=== PATIENT | female | born 1950 | race Caucasian/White ===

== ENCOUNTER 2023-08-08 15:57 | Inpatient (IN) | payer OTHER, SELFPAY ==
[2023-08-08 12:47] VITALS: BP 152/62
[2023-08-08 12:54] VITALS: BMI 37.8
--- NOTE | 2023-08-08 13:34 | ED.GENMED ---
History of Present Illness
General
Chief Complaint: Breathing Problem
Source: patient and significant other
Exam Limitations: none
Time Seen by Provider: 08/08/23 12:59
Travel History
Have you had any contact with someone who has COVID-19?: No
Do you have any symptoms of coronavirus? Fever > 100 degrees, chills, cough, shortness of breath, sore throat, loss of taste or smell, muscle aches, or headache?: No
History of Present Illness
History of Present Illness:
Patient presents emergency department with hypoxia at home. She is bedbound at her baseline from prior necrotizing infections in her legs. She has a history of DVT and PE but was taken off of Coumadin after she had a brain bleed 2 years ago. She
has been having recent issues with her renal function and was taken off her Lasix approximately 3 weeks ago. She notes that since Sunday she has been feeling more short of breath and has been having hypoxia as measured at home. She is on 2 L nasal
cannula at baseline but was found to be in the 80s. She denies chest pain. She denies back pain. No fevers or chills. Denies cough.
Phy Exam
Physical Exam
Physical Exam:
GENERAL APPEARANCE: pale, obese, chronically ill appearing
EYES lids/conjunctiva normal
HEAD/NECK normocephalic atraumatic, neck is supple, unable to appreciate JVD 2/2 habitus
RESPIRATORY: mild tachypnea, rales bilaterally
CARDIAC Regular rate and rhythm, edema to LE asymmetrical
ABDOMINAL Soft, ND/NT. No pulsatile masses on exam, rebound tenderness, Guerrero sign or pain over Mcburney's point.
SKIN Warm, pink and dry. No rashes
NEUROLOGICAL Speech is clear and appropriate. Normal level of consciousness.
PSYCH Normal mood and affect. Judgement/competence is appropriate
Scores
Heart Failure Risk
Heart Failure Risk Score: Yes
History of Stroke or TIA: Yes
History of intubation for respiratory distress: No
Heart rate on ED arrival >/= 110: No
SaO2 <90% on arrival on room air: Yes
HR >/=110 during 3min walk test (or too ill to perform test): No
ECG has acute ischemic changes: No
Urea >/=12mmol/L (BUN 33.6mg/dL): Yes
Serum CO2>/=35mmol/L: No
Troponin I or T elevated to OK Level (0.4mg/dL): No
NT-proBNP >/=5,000ng/L (5,000pg/ml): Yes
HF Risk Score: 4
Admission Status: HIGH RISK 26.1% Consider SNF treatment or admission to hospital
Course
Orders/Labs/Results
Orders:
Orders
08/08/23 12:45
Electrocardiogram (*1) Urgent
Reason for Study: Shortness of Breath
EKG- Treatment ONCE
08/08/23 13:25
O2 Therapy [RESP] Stat
Nasal Cannula Liter Flow: 6 LPM
Titrate/Wean O2 to maintain O2 sat greater than (%): 92
Pulse Ox/cont/shift [RESP] Stat
Quantity: 1
08/08/23 13:30
CR Chest Single View Urgent
Reason For Exam: hypoxia
08/08/23 13:34
Comprehensive Metabolic Panel Urgent
D-Dimer Urgent
Magnesium Urgent
PTT Urgent
Prothrombin Time Urgent
08/08/23 13:35
Complete Blood Count/With Diff Urgent
NT-proBNP Urgent
Troponin I Urgent
08/08/23 14:05
Type+Screen Urgent
08/08/23 14:33
Furosemide [Lasix] 80 mg IV NOW STA
Abnormal Lab Results
08/08/23 08/08/23
13:34 13:35
WBC 11.4 H 10^3/uL
(4.8-10.8)
RBC 2.50 L 10^6/uL
(4.20-5.40)
Hgb 7.3 L g/dL
(12.0-16.0)
Hct 24.2 L %
(37.0-47.0)
MCHC 30.2 L g/dL
(33.0-37.0)
Abs Immat Gran (auto) 0.3 H 10^3/uL
(0-0.05)
Absolute Neuts (auto) 9.6 H 10^3/uL
(1.4-6.5)
Absolute Lymphs (auto) 0.5 L 10^3/uL
(1.2-3.4)
Absolute Monos (auto) 0.8 H 10^3/uL
(0.1-0.6)
Immature Gran % 2.2 H %
(0-0.5)
Neutrophils % 84.3 H %
(42.2-75.2)
Lymphocytes % 4.6 L %
(20.5-51.1)
PT 15.3 H Sec
(11.4-14.6)
D-Dimer 1.81 H ug/mlFEU
(0.00-0.50)
Chloride 108 H mmol/L
(98-107)
BUN 72 H mg/dl
(7-17)
Creatinine 2.0 H mg/dL
(0.6-1.0)
Glucose 178 H mg/dl
(70-99)
Total Protein 5.9 L g/dl
(6.3-8.2)
Albumin 3.2 L g/dl
(3.5-5.0)
08/08/23 13:35
08/08/23 13:34
Vital Signs
Initial and Last Documented VS:
Initial Vital Signs
Temp Pulse Resp BP Pulse Ox
97.6 F 71 24 152/62 87
08/08/23 12:47 08/08/23 12:47 08/08/23 12:47 08/08/23 12:47 08/08/23 12:47
Last Documented Vital Signs
Temp Pulse Resp BP Pulse Ox
97.6 F 71 24 152/62 99
08/08/23 12:47 08/08/23 12:47 08/08/23 12:47 08/08/23 12:47 08/08/23 12:58
*Critical Care Note
Total Time (30-74mins, 75-104mins- exclusive of procedures): Not Applicable
ED Attending Note
ED Attending Note
ED Attending Note:
pt bedbound from prior necrotizing lower extremity infections. hx of DVT/PE and then subsequent brain bleed while on coumadin. Chronic hypoxic respiratory failure on 2L at baseline. takes care of her.
She was taken off of her lasix around 3 weeks ago for worsening kidney function
Now she has developed dyspnea, worsening hypoxia -- requiring 6L NC to oxygenate well
Labs with BNP [id number], normal troponin , CXR with cardiomegaly and significant pulmonary edema
She is also anemic to 7.3 -- unclear what her baseline is but she reports no bleeding or dark stools -- consented for a blood transfusion but recommend diuresis prior to giving more volume
also has Cr of 2.0, unknown baseline ( is on his way home to get records)
Ddimer is elevated, but more clinically suggestive CHF given that she has not been taking her lasix/xray findings/bnp. deferring CTA given creatinine and more likely alternative diagnosis
given 80mg IV lasix
discussed case with hospitalist who accepts patient for admission
-
Portions of this chart may have been created with voice recognition software.� Occasional wrong word or��sound alike� substitutions may have occurred due to the inherent limitations of voice recognition software.
Discharge Plan
Departure
Patient Disposition: Admit
Date of Disposition: 08/08/23
Time of Disposition: 15:02
Admit to: Telemetry
Admit to doctor: Keon La
Presentation/result/management discussed w/ accepting MD/DO: Hospitalist
Consults for patient: HF Discharge Planning
Condition: Fair
Discharge Problem:
CHF (congestive heart failure), CONSTANCE (acute kidney injury), Anemia
Prescriptions:
No Action
atorvastatin 40 mg Tablet
40 mg PO HS
metoprolol succinate 100 mg Tablet Extended Release 24 Hr
100 mg PO DAILY
amlodipine 5 mg Tablet
5 mg PO DAILY
pantoprazole 40 mg Tablet,Delayed Release (Dr/Ec)
40 mg PO DAILY
ferrous sulfate [iron] 325 mg (65 mg iron) Tablet
325 mg PO DAILY
zinc 50 mg Tablet
50 mg PO DAILY
nystatin 100,000 unit/gram Powder
1 applic TOPICAL [id number] PRN (Reason: apply to B/L legs)
sertraline 50 mg Tablet
50 mg PO DAILY
valsartan 160 mg Tablet
160 mg PO DAILY
cholecalciferol (vitamin D3) 50 mcg (2,000 unit) Tablet
50 mcg PO DAILY
Sudafed
2 tab PO DAILYPRN PRN (Reason: congestion)
ascorbic acid (vitamin C) [Vitamin C] 250 mg Tablet
250 mg PO DAILY
Referrals:
Reji Guardado MD [Family Provider] -
Interventions
Interventions:
*Risk Screen - Suicide Last Done: 08/08/23 12:47
*General Assessment Last Done: 08/08/23 12:47
*Neglect/Abuse Screening Last Done: 08/08/23 12:47
ED- Cardiac Assessment Last Done: 08/08/23 12:55
ED- Pulmonary Assessment Last Done: 08/08/23 12:55
Discharge Date and Time
Print Language: PANAMANIAN
[2023-08-08 13:44] LABS: % Basophils 0.3 % (0-2); % Eosinophils 1.2 % (0-6); % Immature Granulocytes 2.2 % (0-0.5); % Lymphocytes 4.6 % (20.5-51.1); % Monocytes 7.4 % (1.7-9.3); % Neutrophils 84.3 % (42.2-75.2); Absolute Eosinophils 0.1 10^3/uL (0-0.7); Absolute Immature Granulocytes 0.3 10^3/uL (0-0.05); Absolute Lymphocytes 0.5 10^3/uL (1.2-3.4); Absolute Monocytes 0.8 10^3/uL (0.1-0.6); Absolute Neutrophils 9.6 10^3/uL (1.4-6.5); Hematocrit 24.2 % (37.0-47.0); Hemoglobin 7.3 g/dL (12.0-16.0); Mean Corp Hgb Conc. 30.2 g/dL (33.0-37.0); Mean Corpuscular Hgb 29.2 pg (27.0-31.0); Mean Corpuscular Volume 96.8 fL (81.0-99.0); Nucleated Red Blood Cells % 0 %; Platelet Count 252 10^3/uL (130-400); Red Cell Dist. Width 13.6 % (11.5-14.5); White Blood Cell Count 11.4 10^3/uL (4.8-10.8)
[2023-08-08 14:03] LABS: APTT 30.4 Sec (23.4-35.0); PT 15.3 Sec (11.4-14.6)
[2023-08-08 14:05] LABS: D-Dimer 1.81 ug/mlFEU (0.00-0.50)
[2023-08-08 14:13] LABS: ALT (SGPT) 11 U/L (0-35); AST (SGOT) 19 U/L (14-36); Albumin 3.2 g/dl (3.5-5.0); Alkaline Phosphatase 96 U/L (38-126); Blood Urea Nitrogen 72 mg/dl (7-17); Calcium 9.5 mg/dl (8.4-10.2); Carbon Dioxide 29 mmol/L (22-30); Chloride 108 mmol/L (98-107); Estimated Creatinine Clearance 32 ml/min; Glucose 178 mg/dl (70-99); Magnesium 1.9 mg/dl (1.6-2.3); Potassium 4.9 mmol/L (3.5-5.1); Sodium 141 mmol/L (135-145); Total Bilirubin 0.4 mg/dl (0.2-1.3); Total Protein 5.9 g/dl (6.3-8.2); eGFR 26.22
[2023-08-08 14:25] LABS: NT-proBNP 10200 pg/ml; Troponin I < 0.012 ng/ml
--- NOTE | 2023-08-08 15:07 | HPS.HSE ---
Family Physician
-
Family Physician: Reji Guardado
Chief Complaint
-
Shortness of breath
History of Present Illness
Patient is 73-year-old female with past medical history of heart failure type unknown, CKD stage IIIb, chronic hypoxic respiratory failure on 3 L oxygen nasal cannula, history of A-fib not on anticoagulation due to hemorrhagic CVA, morbid obesity,
bedbound, recovered type 2 diabetes, essential hypertension, depression, GERD, chronic right foot decubitus wound, history of left leg DVT, FREDY on CPAP was brought into ER by family after patient was noted to be more hypoxic and short of breath for
last 2 3 days. Patient usually uses 3 L oxygen through nasal cannula due to shortness of breath patient requiring 6 L oxygen in ER. No productive cough or fever reported. Patient unsure about worsening leg swelling. Patient apparently have
worsening renal function for some time and patient Lasix was discontinued by batch freezer operator. Patient see batch freezer operator in [place], [place] but does not know the name. Patient also have a senior ui ux designer who according to patient visits at her home.
Patient of left leg DVT for which patient was started on Coumadin, patient ended up having hemorrhagic CVA from that. Patient does not have any significant residual focal neurological deficit. Patient in general has been weak and been working with
physical therapy but remains bedbound and required Jason lift for transfer.
Patient have right foot chronic wound which has been taken care of by wound care nurse. On exam in ER foul-smelling drainage although per patient this is better than in past. Patient have been seen by podiatry in the past as well.
Patient denies of any abdominal or complaints.
Medical History
Past Medical History
Past Medical History: Reports Other
Additional Past Medical History:
heart failure type unknown, CKD stage IIIb, chronic hypoxic respiratory failure on 3 L oxygen nasal cannula, history of A-fib not on anticoagulation due to hemorrhagic CVA, morbid obesity, bedbound, recovered type 2 diabetes, essential hypertension,
depression, GERD, chronic right foot decubitus wound, history of left leg DVT, FREDY on CPAP
Past Surgical History: Reports Other
Social History
Tobacco: Non-smoker
Alcohol: None
Drug: None
Personal:
Living: With Family
Family History
Family History: Not pertinent
Allergies / Home Medications
Allergies reflects when Allergies were last updated in [employer].
Home Medications with original date entered in [employer]
Allergy/Medication List:
Allergies
Allergy/AdvReac Type Severity Reaction Status Date / Time
No Known Allergies Allergy Unverified 08/08/23 12:44
Home Medications
Sudafed 2 tab PO DAILYPRN PRN congestion 08/08/23
amlodipine 5 mg tablet 5 mg PO DAILY 08/08/23
ascorbic acid (vitamin C) 250 mg tablet (Vitamin C) 250 mg PO DAILY 08/08/23
atorvastatin 40 mg tablet 40 mg PO HS 08/08/23
cholecalciferol (vitamin D3) 50 mcg (2,000 unit) tablet 50 mcg PO DAILY 08/08/23
ferrous sulfate 325 mg (65 mg iron) tablet (iron) 325 mg PO DAILY 08/08/23
metoprolol succinate 100 mg tablet,extended release 24 hr 100 mg PO DAILY 08/08/23
nystatin 100,000 unit/gram topical powder 1 applic topical [id number] PRN apply to B/L legs 08/08/23
pantoprazole 40 mg tablet,delayed release 40 mg PO DAILY 08/08/23
sertraline 50 mg tablet 50 mg PO DAILY 08/08/23
valsartan 160 mg tablet 160 mg PO DAILY 08/08/23
zinc 50 mg tablet 50 mg PO DAILY 08/08/23
Review of Systems
-
A 12 point ROS was completed and negative except as noted: Yes
Physical Exam
Vital Signs
Vital Signs
Temp Pulse Resp BP Pulse Ox
97.6 F 71 24 152/62 99
08/08/23 12:47 08/08/23 12:47 08/08/23 12:47 08/08/23 12:47 08/08/23 12:58
Physical Exam
General: No Apparent Distress and Morbidly Obese
HEENT: Atraumatic and Oxygen (6 L NC)
Respiratory: Rhonchi
Cardiac: S1/S2 and Regular Rhythm; No Murmur or Rub
GI: Soft, Non Tender, Non Distended and Normal Bowel Sounds; No Organomegaly
Musculoskeletal: No Clubbing, No Cyanosis, Edema, Left Lower Extremity and Edema, Right Lower Extremity
Skin: Other (Right foot dorsal surface wound, granulation tissue with yellowish foul-smelling drainage); No Rash
Neuro: Awake, Alert, Oriented and Nonfocal/grossly intact
Psych: Calm
Laboratory Results
-
08/08/23 13:35
08/08/23 13:34
Laboratory Results
PT 15.3 Sec (11.4-14.6) H 08/08/23 13:34
INR 1.20 08/08/23 13:34
APTT 30.4 Sec (23.4-35.0) 08/08/23 13:34
Total Bilirubin 0.4 mg/dl (0.2-1.3) 08/08/23 13:34
AST 19 U/L (14-36) 08/08/23 13:34
ALT 11 U/L (0-35) 08/08/23 13:34
Alkaline Phosphatase 96 U/L (38-126) 08/08/23 13:34
Troponin I < 0.012 ng/ml 08/08/23 13:35
Data Reviewed
-
Lab Data: Labs Reviewed by me and Discussed with Patient
Impression/Plan
-
1. Acute on chronic heart failure -type unknown
Acute on chronic hypoxic respiratory failure
-Patient with history of heart failure and has been taken off of Lasix 3 weeks back
-Patient new to [facility] no previous records to compare.
-Patient usually on 3 to oxygen through nasal cannula at home 13/11. Currently requiring up out of 6 to 7 L in ER
-Volume assessment difficult although some swelling in lower extremity.
-Chest x-ray showing moderate pulmonary edema and small left pleural effusion.
-proBNP 10,000 baseline unknown.
-Echocardiogram from tomorrow ordered
-Patient getting IV Lasix 80 mg in ER, maintain on 40 twice daily moving forward
-Check weight and creatinine
2. CKD stage IIIb
-No previous labs to compare with and baseline unknown
-Patient does follow-up with nephrology in [place] [facility] [place] although does not remember the name
-Bladder scan and straight cath protocol ordered
-Will try to obtain records from primary care physician.
3. Right foot chronic decubitus wound
-Patient gets wound care at home by VN. Have been seen by podiatry in the past as well
-Infected foul-smelling purulent drainage on exam in ER
-Wound culture collected
-Lower extremity ANABELLA ordered
-MRI foot ordered
-Podiatry and wound care consulted for further evaluation
-No sign of systemic sepsis. Maintain on empiric vancomycin and Zosyn.
4. history of A-fib
h/o of LLE DVT
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
-Patient evaluated D-dimer. Will check for VTE if hypoxia not improved with diuresis
-can not get CT Chest PE with renal funcion and V/q due to pulm edema
5. Essential hypertension
-Continue Norvasc/metoprolol with holding parameters. Hold valsartan
6. FREDY
-continue on CPAP at night. patient does not know setting.
morbid obesity
bedbound
recovered type 2 diabetes - check a1c
depression
GERD
DVT PPX - heparin subq
Full code- confirmed with patient
Total time spent : 80 mins
I personally saw and examined the patient.
I have reviewed all diagnostic interpretations and treatment plans as written.
Time includes patient management by me, time spent at the patients bedside, time to review lab and imaging results, discussing patient care, documentation in the medical record, and time spent with the family or caregiver and discussing care plan
with RN/Consultants.
[2023-08-08] MEDS: LASIX 80 MG IV (15:28)
[2023-08-08] MEDS: VANCOCIN 540 MG IV (16:19)
[2023-08-08 18:28] VITALS: BMI 38.4
[2023-08-08 18:39] VITALS: BMI 38.4
--- NOTE | 2023-08-08 18:40 | W.PN.POD ---
Today's Communication
Today's Communication
*
Assessment / Plan
-
[place] dressing QD after saline lavage. Awaiting vascular study, cultures and radiology.
Subjective
Chief Complaint
Consulted for right foot wound. Wound is chronic and has been treated by family members and wound care nurse.
Objective
Temp Pulse Resp BP Pulse Ox
97.6 F 71 24 152/62 99
08/08/23 12:47 08/08/23 12:47 08/08/23 12:47 08/08/23 12:47 08/08/23 12:58
08/08/23 13:35
08/08/23 13:34
Vital Signs and Lab results were reviewed.
Inspection: Ulcer (Right dorsal foot. 3cm x 2.5cm x ~.5cm. Granulating base. Wound does not probe to bone and does not have any areas of tunneling. )
[2023-08-08 18:41] VITALS: BP 159/59
--- NOTE | 2023-08-08 19:14 | PHA.VAN.IN ---
Assessment
- Assessment
Renal Function: Unknown baseline
Concomitant Antimicrobials: ZOSYN
Plan
- Plan
Initial / Loading Dose: 2GM
Maintenance Regimen: DOSING BY RANDOM LEVEL
Monitoring: RANDOM VANCOMYCIN LEVEL 08/09/23 AM
Pharmacokinetics Vancomycin I
- -
Patient Age: 73
Patient Sex: Female
Vancomycin Day #: 1
Indication: Skin And Soft Tissue (CHRONIC [R] FOOT DECUB)
Height / Weight:
Height 5 ft 6 in
Actual Weight 107.819 kg
Pertinent Past Medical History: CKD STAGE 3B; IDDM
- Vital Signs / Lab Results
Temp Pulse Resp BP Pulse Ox
97.3 F 65 18 159/59 97
08/08/23 18:41 08/08/23 18:41 08/08/23 18:41 08/08/23 18:41 08/08/23 18:41
Lab Results - Hematology
08/08/23
13:35
WBC 11.4 H
Lab Results - Chemistry
08/08/23
13:34
BUN 72 H
Creatinine 2.0 H
Estimated Creat Clear 32
Albumin 3.2 L
Microbiology Results
08/08/23 16:23 Gram Stain - Preliminary
Foot - Right
[2023-08-08 19:44] VITALS: BP 103/55
[2023-08-08] MEDS: HEPARIN 5000 UNITS SC (20:17)
[2023-08-08] MEDS: ZOSYN 50 IV (20:17)
[2023-08-08 21:59] VITALS: PULSE 65
[2023-08-08] MEDS: LIPITOR 40 MG PO (22:22)
[2023-08-08 23:49] VITALS: BP 149/53
[2023-08-09] VITALS (7 sets, daily range): BP systolic 131–147; BP diastolic 51–59; PULSE 66; BMI 38.3
[2023-08-09] MEDS: ZOSYN 50 IV ×4 (02:22→20:21)
[2023-08-09 06:29] LABS: Hematocrit 25.2 % (37.0-47.0); Hemoglobin 7.3 g/dL (12.0-16.0); Mean Corpuscular Hgb 28.1 pg (27.0-31.0); Mean Corpuscular Volume 96.9 fL (81.0-99.0); Mean Platelet Volume 10.1 fL (7.4-10.4); Platelet Count 247 10^3/uL (130-400); Red Cell Dist. Width 13.7 % (11.5-14.5); White Blood Cell Count 10.5 10^3/uL (4.8-10.8)
[2023-08-09 06:41] LABS: Vancomycin Random 19.1 ug/ml
[2023-08-09 06:52] LABS: Blood Urea Nitrogen 74 mg/dl (7-17); Calcium 9.9 mg/dl (8.4-10.2); Carbon Dioxide 28 mmol/L (22-30); Chloride 105 mmol/L (98-107); Estimated Creatinine Clearance 28 ml/min; Glucose 126 mg/dl (70-99); Potassium 4.8 mmol/L (3.5-5.1); Sodium 144 mmol/L (135-145); eGFR 22.17
--- NOTE | 2023-08-09 09:00 | PHA.VAN.FU ---
Vancomycin Assessment / Plan
- Assessment
Renal Function: SCR Decreasing
WBC's are: WNL
In the past 24 hrs, patient has been: Afebrile
Concomitant Antimicrobials: piperacillin/tazobactam
- Assessment - Therapeutic Drug Monitoring
Random Level: 19.1 - drawn ~13.5H after 2000mg loading dose
- Dosing Plan
Dosing by Level: Hold off on dosing today (given elevated level and increased SCR with unclear baseline)
- Monitoring Plan
Random Level: 08/09 599
- Follow Up
Pharmacy will continue to follow.
Vancomycin Follow UP
- -
Patient Age: 73
Patient Sex: Female
Vancomycin Day #: 2
Indication: Skin And Soft Tissue
Requesting Provider: Dr. La
Pertinent Antimicrobial Allergies:
NKDA
Height / Weight:
Height 5 ft 6 in
Actual Weight 107.819 kg
Pertinent Past Medical History: BMI ~38, CKD, DM2
- Vital Signs / Lab Results
Temp Pulse Resp BP Pulse Ox
97.8 F 66 20 141/58 94
08/09/23 07:00 08/09/23 07:00 08/09/23 07:00 08/09/23 07:00 08/09/23 07:00
Lab Results - Hematology
08/08/23 08/09/23
13:35 06:05
WBC 11.4 H 10.5
Lab Results - Chemistry
08/08/23 08/09/23
13:34 06:05
BUN 72 H 74 H
Creatinine 2.0 H 2.3 H
Estimated Creat Clear 32 28
Albumin 3.2 L
Microbiology Results
08/08/23 16:23 Gram Stain - Preliminary
Foot - Right
Therapeutic Drug Monitoring
Random Vancomycin 19.1 ug/ml 08/09/23 06:05
[2023-08-09] MEDS: LASIX 40 MG PO ×2 (09:38→15:38)
[2023-08-09] MEDS: FEOSOL 325 MG PO (09:38)
[2023-08-09] MEDS: VITAMIN C 250 MG PO (09:41)
[2023-08-09] MEDS: ZOLOFT 50 MG PO (09:41)
[2023-08-09] MEDS: NORVASC 5 MG PO (09:41)
[2023-08-09] MEDS: PROTONIX 40 MG PO (09:41)
[2023-08-09] MEDS: TOPROL XL 100 MG PO (09:42)
[2023-08-09] MEDS: VITAMIN D3 (cholecalciferol) 50 MCG PO (09:42)
[2023-08-09] MEDS: HEPARIN 5000 UNITS SC ×2 (09:58→20:20)
--- NOTE | 2023-08-09 10:47 | CM ---
Met with pt and her at bedside
Pt lives with her in a 2 story home. Pt has a FF set-up
Pt is oriented x3. She can perform adl's with assist. Pt is bedbound. Uses Jason Lift to transfer to wheel chair
Family has FAMILY EDUCATOR 3days/wk, private pay
DME - Includes hospital bed, jason lift, wheel chair, shower chair, rolling walker, CPAP and Oxygen([employer]) - baseline 3.5L
SNF - In past has been to [facility]
HH - has had [facility] in past for RN/PT/OT. Currently followed by Palliative Care
Pt will need bariatric ambulance to return home
Pt/ given food resource website - [email or web address]
Consulted for Advance Directive - given information packet on Advance Directives
Waiting on PT/OT eval
Plan - anticipate snf vs HH when medically ready
--- NOTE | 2023-08-09 11:07 | WOUNDNOTE ---
WOC RN NOTE: Reviewed chart and briefly met with patient before she was transferred for test. Wound care to right LE has been ordered by podiatry. Static air overlay ordered and applied to bed. JLUIS Pena given update. Will follow peripherally.
[2023-08-09 12:19] LABS: Glycohemoglobin (HgbA1c) 5.1 % (4.0-5.6)
--- NOTE | 2023-08-09 15:01 | W.PN.HOSP.TC ---
Today's Communication/Plan
-
see note
Assessment / Plan
Assessment / Plan
TTE
Mild concentric left ventricular hypertrophy. Normal regional wall motion. Left ventricular ejection fraction is 75% by Pham's method.
Normal diastolic function. Normal right ventricular size and function. Trace mitral regurgitation.
Aortic sclerosis without stenosis. Mild tricuspid regurgitation.
Estimated pulmonary artery pressure of 37 mmHg, assuming a right atrial pressure of 3 mmHg. Normal pericardium without effusion.
The IVC is of normal size and demonstrates normal respiratory variation.
NO prior available for comparison
CT right foot
Findings suggesting moderate cellulitis of the dorsal right foot. No focal fluid collection to suggest abscess . Limited exam without IV contrast.
LE arterial doppler
1. Noncompressible arteries bilaterally, suggestive of medial calcinosis and/or arterial noncompliance, which makes measured ankle-brachial indices unreliable. Toe brachial indices are considered more reliable in this situation.
2. Right toe brachial index 1.03 (normal greater than 0.7). No focal arterial stenosis demonstrated. Spectral Doppler waveforms are normal to the level of ankle.
3. Left toe brachial index 1.23. No focal arterial stenosis demonstrated. Spectral Doppler waveforms are normal to the level of ankle.

1. Acute on chronic diastolic heart failure
Acute on chronic hypoxic respiratory failure
-Patient with history of heart failure and has been taken off of Lasix 3 weeks back
-Patient new to [facility] no previous records to compare.
-Patient usually on 3 to oxygen through nasal cannula at home 13/11. in ER was on 7L NC
-Volume assessment difficult although some swelling in lower extremity.
-Chest x-ray showing moderate pulmonary edema and small left pleural effusion.
-proBNP 10,000 baseline unknown.
-Echocardiogram report as above
-Patient getting IV Lasix 80 mg in ER, got IV lasix 40mg in morning
-hold further lasix until renal function baseline clarified. obtrainig records from PCP office.
2.Presumed CKD stage IIIb
-No previous labs to compare with and baseline unknown
-Patient does follow-up with nephrology in [place] although does not remember the name
-Bladder scan and straight cath protocol ordered
-Will try to obtain records from primary care physician.
3. Right foot chronic decubitus wound
-Patient gets wound care at home by VN. Have been seen by podiatry in the past as well
-Infected foul-smelling purulent drainage on exam in ER
-Superficial Wound culture growing gram neg bacilli, group c streptococcus
-Lower extremity ANABELLA report as above
-CT left foot/xr did not show osteo. no abscess.
-Podiatry input noted.
-d/c vanc, continue zosyn
4. history of A-fib
h/o of LLE DVT
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
-Patient evaluated D-dimer. Will check for VTE if hypoxia not improved with diuresis
-can not get CT Chest PE with renal function and V/q due to pulm edema
5. Essential hypertension
-Continue Norvasc/metoprolol with holding parameters. Hold valsartan
6. FREDY
-continue on CPAP at night. patient does not know setting.
morbid obesity
bedbound
recovered type 2 diabetes - check a1c
depression
GERD
DVT PPX - heparin subq
Full code- confirmed with patient
Total time spent : 53 mins
Anticipated Discharge: > 48 hours
Subjective/Interval History
-
Date of Service: August 09, 2023
Patient sleeping comfortably in bed
Remains on oxygen 6 L of nasal cannula
No acute issues reported
Objective Data
-
Labs:
Laboratory Results
08/09/23
06:05
WBC 10.5
Hgb 7.3 L
Hct 25.2 L
Plt Count 247
Sodium 144
Potassium 4.8
Chloride 105
Carbon Dioxide 28
BUN 74 H
Creatinine 2.3 H
Glucose 126 H
Calcium 9.9
Vital Signs:
Vital Signs
Temp Pulse Resp BP Pulse Ox
97.7 F 63 18 131/57 93
08/09/23 11:00 08/09/23 11:00 08/09/23 11:00 08/09/23 11:00 08/09/23 11:00
I&O
08/08/23 08/09/23 08/10/23
06:59 06:59 06:59
Output Total 450 / 450
Balance -450 / -450
Review of Systems
-
Respiratory: Reports No Symptoms
Cardiac: Reports No Symptoms
Abdomen/GI: Reports No Symptoms
Physical Exam
-
General: No Apparent Distress and Comfortable
HEENT: Oxygen (6L NC)
Respiratory: Rhonchi
Cardiac: Regular Rhythm and S1/S2; Negative Murmur or Rub
GI: Soft, Nontender and Nondistended
Musculoskeletal: No Edema
Neuro: Awake, Alert, Oriented, No Motor Deficits and Nonfocal/Grossly Intact
Psych: Calm
[2023-08-09 18:56] LABS: Hepatitis C Antibody Negative (Negative)
[2023-08-09] MEDS: LIPITOR 40 MG PO (22:47)
[2023-08-10] VITALS (8 sets, daily range): BP systolic 135–167; BP diastolic 52–72; BMI 37.0
[2023-08-10] MEDS: ZOSYN 50 IV ×3 (02:30→13:50)
[2023-08-10 06:05] LABS: Hematocrit 24.2 % (37.0-47.0); Hemoglobin 7.2 g/dL (12.0-16.0); Mean Corp Hgb Conc. 29.8 g/dL (33.0-37.0); Mean Corpuscular Hgb 28.6 pg (27.0-31.0); Mean Platelet Volume 9.8 fL (7.4-10.4); Platelet Count 264 10^3/uL (130-400); Red Blood Cell Count 2.52 10^6/uL (4.20-5.40); Red Cell Dist. Width 13.8 % (11.5-14.5); White Blood Cell Count 11.7 10^3/uL (4.8-10.8)
[2023-08-10 06:28] LABS: Vancomycin Random 16.8 ug/ml
[2023-08-10 06:34] LABS: Blood Urea Nitrogen 76 mg/dl (7-17); Carbon Dioxide 27 mmol/L (22-30); Chloride 105 mmol/L (98-107); Estimated Creatinine Clearance 26 ml/min; Glucose 139 mg/dl (70-99); Potassium 4.2 mmol/L (3.5-5.1); Sodium 144 mmol/L (135-145); eGFR 21.06
[2023-08-10] MEDS: HEPARIN 5000 UNITS SC ×2 (08:27→21:09)
[2023-08-10] MEDS: VITAMIN D3 (cholecalciferol) 50 MCG PO (08:29)
[2023-08-10] MEDS: NORVASC 5 MG PO (08:29)
[2023-08-10] MEDS: FEOSOL 325 MG PO (08:30)
[2023-08-10] MEDS: TOPROL XL 100 MG PO (08:30)
[2023-08-10] MEDS: ZOLOFT 50 MG PO (08:30)
[2023-08-10] MEDS: PROTONIX 40 MG PO (08:31)
[2023-08-10] MEDS: VITAMIN C 250 MG PO (08:31)
--- NOTE | 2023-08-10 13:10 | PN.CDI ---
CDI
- -
CDI:
Physician Documentation Request
Admit Date: 08/08/23 15:57
Dear Doctor Abhinav,
Clinical Indicators:
Patient admitted with acute on chronic diastolic heart failure.
08/08 PN, '...hold further lasix until renal function baseline clarified...Presumed CKD stage IIIb'
Cr/GFR trend:
08/08/23 08/09/23
13:34 06:05
Creatinine 2.0 H 2.3 H
eGFR 26.22 22.17
Please clarify which of the following accurately represents the patient's likely renal status:
CONSTANCE on presumed CKD 3b
Presumed CKD 3b with rise in creatinine only
Other, please specify
Criteria for CONSTANCE*
1 Increase in serum creatinine by > or = to 0.3 mg/dL (> or = to 26.5 micromol/L) within 48 hours, OR
2 Increase in serum creatinine to > or = to 1.5 times baseline, which is known or presumed to have occurred within 7 days, OR
3 Urine volume < 0.5 nL/kg/hour for six hours
Stages of Chronic Kidney Disease*
Level Description GFR
G1 Normal or High >90
G2 Mildly decreased 60-89
G3a Mildly to moderately decreased 45-59
G3b Moderately to severely decreased 30-44
G4 Severely decreased 15-29
G5 Kidney failure <15
Use of terms such as suspected, likely, concern for, or probable (associated with a specific diagnosis that is being evaluated, monitored, or treated as if it exists) are acceptable and can be coded in the inpatient setting, when documented at the
time of discharge.
Thank you,
WILLARD Oliva RN
CDI Specialist
available via tiger text
Please use your independent medical judgment in providing your response.
*Source: Kidney Disease: Improving Global Outcomes (KDIGO) 2012
--- NOTE | 2023-08-10 13:21 | PN.CDI ---
CDI
- -
CDI:
Physician Documentation Request
Admit Date: 08/08/23 15:57
Dear Doctor Abhinav,
Clinical Indicators:
The diagnosis of cellulitis was included in the signed CT and foot x ray.
08/07 Foot X Ray report: 'There is a large amount of soft tissue swelling and subcutaneous edema throughout the right foot and ankle consistent with severe cellulitis.'
08/[address] report: 'Findings suggesting moderate cellulitis of the dorsal right foot'
Please indicate in your progress notes if you are in agreement that the above diagnosis is valid for this patient:
Right foot cellulitis is a valid diagnosis (Please include it in your progress notes)
Right foot cellulitis is not a valid diagnosis for this patient
Right foot cellulitis is not yet confirmed but remains a suspected condition
Other, please specify
Use of terms such as suspected, likely, concern for, or probable are acceptable for a diagnosis that is being evaluated, monitored or treated as if it exists and can be coded in the inpatient setting, when documented at the time of discharge.
Thank you,
WILLARD Oliva RN
CDI Specialist
available via tiger text
Please use your independent medical judgment in providing your response.
--- NOTE | 2023-08-10 14:03 | W.PN.HOSP.TC ---
Today's Communication/Plan
-
see note
Assessment / Plan
Assessment / Plan
TTE
Mild concentric left ventricular hypertrophy. Normal regional wall motion. Left ventricular ejection fraction is 75% by Pham's method.
Normal diastolic function. Normal right ventricular size and function. Trace mitral regurgitation.
Aortic sclerosis without stenosis. Mild tricuspid regurgitation.
Estimated pulmonary artery pressure of 37 mmHg, assuming a right atrial pressure of 3 mmHg. Normal pericardium without effusion.
The IVC is of normal size and demonstrates normal respiratory variation.
NO prior available for comparison
CT right foot
Findings suggesting moderate cellulitis of the dorsal right foot. No focal fluid collection to suggest abscess . Limited exam without IV contrast.
LE arterial doppler
1. Noncompressible arteries bilaterally, suggestive of medial calcinosis and/or arterial noncompliance, which makes measured ankle-brachial indices unreliable. Toe brachial indices are considered more reliable in this situation.
2. Right toe brachial index 1.03 (normal greater than 0.7). No focal arterial stenosis demonstrated. Spectral Doppler waveforms are normal to the level of ankle.
3. Left toe brachial index 1.23. No focal arterial stenosis demonstrated. Spectral Doppler waveforms are normal to the level of ankle.

1. Acute on chronic diastolic heart failure
Acute on chronic hypoxic respiratory failure
-Patient with history of heart failure and has been taken off of Lasix 3 weeks back
-Patient new to [facility] no previous records to compare.
-Patient usually on 3 to oxygen through nasal cannula at home 13/11. in ER was on 7L [place]
-Volume assessment difficult although some swelling in lower extremity.
-Chest x-ray showing moderate pulmonary edema and small left pleural effusion.
-proBNP 10,000 baseline unknown.
-Echocardiogram report as above
-cr lower then last known outpt labs, but increased from best known cr 1 yr back
-currently remains hypoxic and volume overloaded, will continue diuresis IV lasix 40mg/d
2.Presumed CKD stage IIIb
-Cr of 1.65 and GFR of 33 on July 13
-Repeat one earlier this year showing cr 3.07 and GFR 16 on 06/18/23
-Patient was admitted taken off of Lasix due to worsening renal function. Patient was apparently on p.o. Lasix 40 g twice daily.
-Bladder scan and straight cath protocol ordered
3. Right foot chronic decubitus wound
-Patient gets wound care at home by VN. Have been seen by podiatry in the past as well
-Infected foul-smelling purulent drainage on exam in ER
-Superficial Wound culture growing gram neg bacilli, group c streptococcus
-Lower extremity ANABELLA report as above
-CT left foot/xr did not show osteo. no abscess.
-Podiatry input noted.
-Change abx to unasyn
4. history of A-fib
h/o of LLE DVT
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
-Patient evaluated D-dimer. Will check for VTE if hypoxia not improved with diuresis
-can not get CT Chest PE with renal function and V/q due to pulm edema
5. Essential hypertension
-Continue Norvasc/metoprolol with holding parameters. Hold valsartan
6. FREDY
-continue on CPAP at night. patient does not know setting.
morbid obesity
bedbound
recovered type 2 diabetes - A1c 5.1
depression
GERD
DVT PPX - heparin subq
Full code- confirmed with patient
Patient palliative care physician Dr. Andie Alonso shared patient's previous labs and reviewed.
Remains complex and high risk for complication.
Anticipated Discharge: > 48 hours
Subjective/Interval History
-
Date of Service: August 10, 2023
Remains on 6 to oxygen through nasal cannula
Subjectively feeling better
Denies dyspnea/cough
Afebrile overnight
Objective Data
-
Labs:
Laboratory Results
08/10/23
05:52
WBC 11.7 H
Hgb 7.2 L
Hct 24.2 L
Plt Count 264
Sodium 144
Potassium 4.2
Chloride 105
Carbon Dioxide 27
BUN 76 H
Creatinine 2.4 H
Glucose 139 H
Calcium 10.0
Vital Signs:
Vital Signs
Temp Pulse Resp BP Pulse Ox
97.6 F 64 20 148/59 94
08/10/23 12:04 08/10/23 12:04 08/10/23 12:04 08/10/23 12:04 08/10/23 11:05
I&O
08/09/23 08/10/23 08/11/23
06:59 06:59 06:59
Intake Total 1060 / 1060
Output Total 450 / 450 425 / 425
Balance -450 / -450 635 / 635
Review of Systems
-
Respiratory: Reports No Symptoms
Cardiac: Reports No Symptoms
Abdomen/GI: Reports No Symptoms
Physical Exam
-
General: No Apparent Distress and Comfortable
HEENT: Oxygen (6L NC)
Respiratory: Rhonchi
Cardiac: Regular Rhythm and S1/S2; Negative Murmur or Rub
GI: Soft, Nontender and Nondistended
Musculoskeletal: No Edema
Neuro: Awake, Alert, Oriented, No Motor Deficits and Nonfocal/Grossly Intact
Psych: Calm
[2023-08-10] MEDS: LASIX 40 MG IV (16:37)
[2023-08-10] MEDS: ULTRAM 50 MG PO (17:09)
[2023-08-10] MEDS: UNASYN IV (21:09)
[2023-08-10] MEDS: LIPITOR 40 MG PO (23:56)
[2023-08-11] VITALS (7 sets, daily range): BP systolic 113–167; BP diastolic 53–72; BMI 36.9
[2023-08-11 06:23] LABS: Hematocrit 23.9 % (37.0-47.0); Hemoglobin 7.2 g/dL (12.0-16.0); Mean Corp Hgb Conc. 30.1 g/dL (33.0-37.0); Mean Corpuscular Hgb 28.7 pg (27.0-31.0); Mean Corpuscular Volume 95.2 fL (81.0-99.0); Mean Platelet Volume 10.2 fL (7.4-10.4); Platelet Count 241 10^3/uL (130-400); Red Blood Cell Count 2.51 10^6/uL (4.20-5.40); White Blood Cell Count 9.7 10^3/uL (4.8-10.8)
[2023-08-11 06:32] LABS: Blood Urea Nitrogen 76 mg/dl (7-17); Calcium 9.7 mg/dl (8.4-10.2); Carbon Dioxide 28 mmol/L (22-30); Chloride 109 mmol/L (98-107); Estimated Creatinine Clearance 26 ml/min; Glucose 126 mg/dl (70-99); Potassium 4.5 mmol/L (3.5-5.1); Sodium 144 mmol/L (135-145); eGFR 21.06
[2023-08-11] MEDS: VITAMIN C 250 MG PO (09:07)
[2023-08-11] MEDS: LASIX 40 MG IV (09:07)
[2023-08-11] MEDS: VITAMIN D3 (cholecalciferol) 50 MCG PO (09:07)
[2023-08-11] MEDS: NORVASC 5 MG PO (09:08)
[2023-08-11] MEDS: PROTONIX 40 MG PO (09:08)
[2023-08-11] MEDS: ZOLOFT 50 MG PO (09:08)
[2023-08-11] MEDS: HEPARIN 5000 UNITS SC ×2 (09:09→22:42)
[2023-08-11] MEDS: UNASYN IV (09:09)
[2023-08-11] MEDS: FEOSOL 325 MG PO (09:10)
[2023-08-11] MEDS: ULTRAM 50 MG PO (09:13)
[2023-08-11] MEDS: TOPROL XL 100 MG PO (11:04)
--- NOTE | 2023-08-11 13:06 | W.PN.HOSP.TC ---
Addendum entered and electronically signed by Keon La MD 08/11/23 18:50:
Adjust diagnosis
CONSTANCE on CKDIIIA
Right foot cellulitis from chronic wound infection
Original Note:
Today's Communication/Plan
-
extra lasix 20mg dose in evening
f.u weight/cr
wean off o2
change to oral Augmentin for 3 more days
Assessment / Plan
Assessment / Plan
TTE
Mild concentric left ventricular hypertrophy. Normal regional wall motion. Left ventricular ejection fraction is 75% by Pham's method.
Normal diastolic function. Normal right ventricular size and function. Trace mitral regurgitation.
Aortic sclerosis without stenosis. Mild tricuspid regurgitation.
Estimated pulmonary artery pressure of 37 mmHg, assuming a right atrial pressure of 3 mmHg. Normal pericardium without effusion.
The IVC is of normal size and demonstrates normal respiratory variation.
NO prior available for comparison
CT right foot
Findings suggesting moderate cellulitis of the dorsal right foot. No focal fluid collection to suggest abscess . Limited exam without IV contrast.
LE arterial doppler
1. Noncompressible arteries bilaterally, suggestive of medial calcinosis and/or arterial noncompliance, which makes measured ankle-brachial indices unreliable. Toe brachial indices are considered more reliable in this situation.
2. Right toe brachial index 1.03 (normal greater than 0.7). No focal arterial stenosis demonstrated. Spectral Doppler waveforms are normal to the level of ankle.
3. Left toe brachial index 1.23. No focal arterial stenosis demonstrated. Spectral Doppler waveforms are normal to the level of ankle.

1. Acute on chronic diastolic heart failure
Acute on chronic hypoxic respiratory failure
-Patient with history of heart failure and has been taken off of Lasix 3 weeks back
-Patient new to [facility] no previous records to compare.
-Patient usually on 3 to oxygen through nasal cannula at home 13/11. in ER was on 7L [place]
-Volume assessment difficult although some swelling in lower extremity.
-Chest x-ray showing moderate pulmonary edema and small left pleural effusion.
-proBNP 10,000 baseline unknown.
-Echocardiogram report as above
-cr lower then last known outpt labs in july 14, but increased from best known cr 1 yr back
-will continue diuresis IV lasix 40mg/d - provide extra dose lasix IV 20mg in evening.
-Currently weight down trending and o2 weaned down to 5L
2.Presumed CKD stage IIIb
-Cr of 1.65 and GFR of 33 on July 13
-Repeat one earlier this year showing cr 3.07 and GFR 16 on 06/18/23
-Patient was admitted taken off of Lasix due to worsening renal function by primary companion caregiver 3 wks back. Patient was apparently on p.o. Lasix 40 g twice daily before.
-Bladder scan and straight cath protocol ordered
-Cr stabilized around 2.4 , weight down trending with daily lasix . continue follow.
3. Right foot chronic decubitus wound
-Ongoing for 2.5 yrs. Patient gets wound care at home by VN. Have been seen by podiatry in the past as well
-Infected foul-smelling purulent drainage on exam in ER
-Superficial Wound culture growing gram neg bacilli, group c streptococcus
-Lower extremity ANABELLA report as above
-CT left foot/xr did not show osteo. no abscess.
-Podiatry evaluated. continue local wound care.
-wound looks dry with healthy granulation tissue. change to oral Augmentin for 3 more days
4. history of A-fib
h/o of LLE DVT
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
-Patient have elevated D-dimer. Will check for VTE if hypoxia not improved with diuresis
-can not get CT Chest PE with renal function and V/q due to pulm edema
5. Essential hypertension
-Continue Norvasc/metoprolol with holding parameters. Hold valsartan
6. FREDY
-continue on CPAP at night. patient does not know setting.
morbid obesity
bedbound
recovered type 2 diabetes - A1c 5.1
depression
GERD
DVT PPX - heparin subq
Full code- confirmed with patient
08/10 Patient spouse at bedside and all questions answered.
Anticipated Discharge: > 48 hours
Subjective/Interval History
-
Date of Service: August 11, 2023
remains hypoxic through 6L oxygen through nasal cannula
patient was not provided BiPAP last night
denies of having any acute issues
Objective Data
-
Labs:
Laboratory Results
08/11/23
05:58
WBC 9.7
Hgb 7.2 L
Hct 23.9 L
Plt Count 241
Sodium 144
Potassium 4.5
Chloride 109 H
Carbon Dioxide 28
BUN 76 H
Creatinine 2.4 H
Glucose 126 H
Calcium 9.7
Vital Signs:
Vital Signs
Temp Pulse Resp BP Pulse Ox
97.6 F 89 24 123/74 95
08/11/23 07:40 08/11/23 11:04 08/11/23 07:40 08/11/23 11:04 08/11/23 11:03
I&O
08/10/23 08/11/23 08/12/23
06:59 06:59 06:59
Intake Total 1060 / 1060 100 / 100
Output Total 425 / 425 100 / 100
Balance 635 / 635 0 / 0
Review of Systems
-
Respiratory: Reports No Symptoms
Cardiac: Reports No Symptoms
Abdomen/GI: Reports No Symptoms
Physical Exam
-
General: No Apparent Distress, Comfortable and Morbidly Obese
HEENT: Oxygen (6L NC)
Respiratory: Clear to Auscultation
Cardiac: Regular Rhythm and S1/S2; Negative Murmur or Rub
GI: Soft, Nontender and Nondistended
Musculoskeletal: No Edema
Neuro: Awake, Alert, Oriented, No Motor Deficits and Nonfocal/Grossly Intact
Psych: Calm
[2023-08-11] MEDS: LASIX 20 MG IV (17:05)
--- NOTE | 2023-08-11 17:08 | PTCARENOTE ---
PT completed care and required three nurses to turne and reposition every two hours. With turning pt screems on top of lungs with pain due to hip pain. stated this is her normal baseline. He suggested using log rolling to turn her q 2
hours.PT with Right leg external rotated with both heels elevated with prevelon boots.
[2023-08-11] MEDS: LIPITOR 40 MG PO (22:42)
[2023-08-11] MEDS: AUGMENTIN 500 MG/125 MG 1 TABLET PO (22:42)
[2023-08-11] MEDS: AFRIN NASAL SPRAY 1 SPRAYS NASAL (22:43)
[2023-08-12] VITALS (13 sets, daily range): BP systolic 89–163; BP diastolic 54–104; PULSE 2–70; BMI 36.9
[2023-08-12 06:16] LABS: Hematocrit 23.6 % (37.0-47.0); Mean Corp Hgb Conc. 29.7 g/dL (33.0-37.0); Mean Corpuscular Hgb 28.8 pg (27.0-31.0); Mean Corpuscular Volume 97.1 fL (81.0-99.0); Mean Platelet Volume 10.1 fL (7.4-10.4); Platelet Count 267 10^3/uL (130-400); Red Blood Cell Count 2.43 10^6/uL (4.20-5.40); Red Cell Dist. Width 14.1 % (11.5-14.5); White Blood Cell Count 10.6 10^3/uL (4.8-10.8)
[2023-08-12 06:42] LABS: Blood Urea Nitrogen 77 mg/dl (7-17); Calcium 9.6 mg/dl (8.4-10.2); Carbon Dioxide 28 mmol/L (22-30); Chloride 107 mmol/L (98-107); Estimated Creatinine Clearance 21 ml/min; Glucose 109 mg/dl (70-99); Potassium 4.2 mmol/L (3.5-5.1); Sodium 146 mmol/L (135-145); eGFR 16.12
[2023-08-12] MEDS: AFRIN NASAL SPRAY 1 SPRAYS NASAL (09:24)
[2023-08-12] MEDS: HEPARIN 5000 UNITS SC ×2 (09:24→20:15)
[2023-08-12] MEDS: AUGMENTIN 500 MG/125 MG 1 TABLET PO (09:24)
[2023-08-12] MEDS: NORVASC 5 MG PO (09:25)
[2023-08-12] MEDS: TOPROL XL 100 MG PO (09:26)
[2023-08-12 11:02] LABS: NT-proBNP 10200 pg/ml
[2023-08-12] MEDS: ZOLOFT 50 MG PO (12:13)
[2023-08-12] MEDS: VITAMIN D3 (cholecalciferol) 50 MCG PO (12:13)
[2023-08-12] MEDS: VITAMIN C 250 MG PO (12:13)
[2023-08-12] MEDS: FEOSOL 325 MG PO (12:13)
[2023-08-12] MEDS: PROTONIX 40 MG PO (12:13)
--- NOTE | 2023-08-12 12:38 | W.PN.HOSP.TC ---
Addendum entered and electronically signed by Red Zamora MD 08/12/23 14:28:
DC unasyn, switch to zosyn
Original Note:
Today's Communication/Plan
-
CT Chest
LE dopplers
Unasyn
IMU tx
Pulm consulted
stop lasix
Assessment / Plan
Assessment / Plan
TTE
Mild concentric left ventricular hypertrophy. Normal regional wall motion. Left ventricular ejection fraction is 75% by Pham's method.
Normal diastolic function. Normal right ventricular size and function. Trace mitral regurgitation.
Aortic sclerosis without stenosis. Mild tricuspid regurgitation.
Estimated pulmonary artery pressure of 37 mmHg, assuming a right atrial pressure of 3 mmHg. Normal pericardium without effusion.
The IVC is of normal size and demonstrates normal respiratory variation.
NO prior available for comparison
CT right foot
Findings suggesting moderate cellulitis of the dorsal right foot. No focal fluid collection to suggest abscess . Limited exam without IV contrast.
LE arterial doppler
1. Noncompressible arteries bilaterally, suggestive of medial calcinosis and/or arterial noncompliance, which makes measured ankle-brachial indices unreliable. Toe brachial indices are considered more reliable in this situation.
2. Right toe brachial index 1.03 (normal greater than 0.7). No focal arterial stenosis demonstrated. Spectral Doppler waveforms are normal to the level of ankle.
3. Left toe brachial index 1.23. No focal arterial stenosis demonstrated. Spectral Doppler waveforms are normal to the level of ankle.

# Acute on chronic hypoxic respiratory failure
-Patient usually on 3 to oxygen through nasal cannula at home /. now on 10L
-No evidence of fluid overload on imaging, proBNP unreliable as CONSTANCE on CKD; may be component of PAH
-Stop lasix
-CT Chest
- Incentive Jairon
-LE dopplers - patient has hx of dvt and therefore could not rule out PE; not on anticoag due to hemorrhagic cva
-Will obtain pulmonary consult
-EF 75%;
Echocardiogram report as above
-Tx to IMU
Switch back to Unasyn
#CONSTANCE on Presumed CKD stage IIIb
-stop lasix
-CT Chest
-Gentle fluid if CT chest unremarkable
-Patient was admitted taken off of Lasix due to worsening renal function by primary field gauger 3 wks back. Patient was apparently on p.o. Lasix 40 g twice daily before.
-Bladder scan and straight cath protocol ordered
#Hypernatremia
-2/2 to overdiuresis
-hold lasix
#Right foot chronic decubitus wound
-Ongoing for 2.5 yrs. Patient gets wound care at home by VN. Have been seen by podiatry in the past as well
-Infected foul-smelling purulent drainage on exam in ER
-Superficial Wound culture growing gram neg bacilli, group c streptococcus
-Lower extremity ANABELLA report as above
-CT left foot/xr did not show osteo. no abscess.
-Podiatry evaluated. continue local wound care.
-wound looks dry with healthy granulation tissue. augmentin - to unasyn
#history of A-fib
h/o of LLE DVT
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
-can not get CT Chest PE with renal function and V/q due to pulm edema
#Essential hypertension
-Continue Norvasc/metoprolol with holding parameters. Hold valsartan
6. FREDY
-continue on CPAP at night. patient does not know setting.
morbid obesity
bedbound
recovered type 2 diabetes - A1c 5.1
depression
GERD
DVT PPX - heparin subq
DNR/DNI
Total time spent on today's encounter was 50 minutes which included time spent in counseling the patient/family regarding diagnosis and treatment plan as listed above, goals of care, and symptom management. Case was discussed with nursing staff,
specialists, and care coordinators/case management. All labs and imaging personally reviewed by me. Remainder the time spent in detailed review of previous records, lab data, imaging, and other medical provider documentation.
Anticipated Discharge: > 48 hours
Subjective/Interval History
-
Date of Service: August 12, 2023
Requiring 10 L mid flow, speaking full sentences
Objective Data
-
Labs:
Laboratory Results
08/12/23
04:30
WBC 10.6
Hgb 7.0 L
Hct 23.6 L
Plt Count 267
Sodium 146 H
Potassium 4.2
Chloride 107
Carbon Dioxide 28
BUN 77 H
Creatinine 3.0 H
Glucose 109 H
Calcium 9.6
Vital Signs:
Vital Signs
Temp Pulse Resp BP Pulse Ox
97.5 F 77 20 158/57 82
08/12/23 11:07 08/12/23 11:07 08/12/23 11:07 08/12/23 11:07 08/12/23 11:11
I&O
08/11/23 08/12/23 08/13/23
06:59 06:59 06:59
Intake Total 100 / 100 840 / 840 480 / 480
Output Total 100 / 100
Balance 0 / 0 840 / 840 480 / 480
Review of Systems
-
History Source: Patient
All other systems: Not reviewed unless documented
Physical Exam
-
General: No Apparent Distress, Comfortable and Morbidly Obese
HEENT: Oxygen (10L NC)
Respiratory: Rales (mild although distant)
Cardiac: Regular Rhythm and S1/S2; Negative Murmur or Rub
GI: Soft, Nontender and Nondistended
Musculoskeletal: No Edema
Neuro: Awake, Alert, Oriented, No Motor Deficits and Nonfocal/Grossly Intact
Psych: Calm
Data Reviewed
-
Diagnostic Radiology: Image personally visualized and interpreted and Report Reviewed by me
Labs: Labs Reviewed by me
[2023-08-12] MEDS: LASIX IV (12:45)
--- NOTE | 2023-08-12 14:18 | CON.PUL ---
Consultation
Consultation Request
Date/Time Consultation Requested: 08-12-23
Date/Time Consultation Performed: 08-12-23
Requesting Provider: Hospitalist emil
Performing Provider: Dr Bravo
Reason for Consultation: hypoxemia
Medical History
-
Chief Complaint: dyspnea
History of Present Illness:
Mrs Anahi Long is a 73/W adm 08-07 with 2-3 d h/o worsening dyspnea in setting of chronic hypoxic resp failure on home O2 at 3L and multiple comorbidities.
At ER, POx 87% on O2 2L, deemed in ac/chronic HF, started on diuretic.
Reportedly partial use and sometimes refusal of BPAP as inpatient. Increasing O2 requirement from chronic baseline 3 L, ABG with respiratory acidosis and hypoxemia on O2 15L, resumed BPAP (currently at 14/6 c 10L O2), diuretic discontinued, atbs
changed to zosyn (on atbs since adm with interim changes as mentioned below), transferred to IMU, pulm consulted.
First DH adm
Past Medical History
Past Medical History: Other (see A&P for PMH/PSH)
Social History
Tobacco: Non-smoker
Alcohol: None
Drug: None
Personal:
Living: With Family
Employment: Not Employed
Family History
Family History: Reviewed & Not Pertinent
Allergies / Home Medications
Allergies
Allergy/AdvReac Type Severity Reaction Status Date / Time
No Known Allergies Allergy Unverified 08/08/23 12:44
Home Medications
�Medication �Instructions �Recorded �Confirmed �Last Taken �Type
Sudafed 2 tab PO DAILYPRN PRN congestion 08/08/23 08/08/23 08/07/23 History
amlodipine 5 mg tablet 5 mg PO DAILY Blood Pressure 08/08/23 08/08/23 08/08/23 History
ascorbic acid (vitamin C) 250 mg 250 mg PO DAILY Supplement 08/08/23 08/08/23 08/08/23 History
tablet (Vitamin C)
atorvastatin 40 mg tablet 40 mg PO HS High Cholesterol 08/08/23 08/08/23 08/07/23 History
cholecalciferol (vitamin D3) 50 50 mcg PO DAILY Supplement 08/08/23 08/08/23 08/08/23 History
mcg (2,000 unit) tablet
ferrous sulfate 325 mg (65 mg 325 mg PO DAILY Supplement 08/08/23 08/08/23 08/08/23 History
iron) tablet (iron)
metoprolol succinate 100 mg 100 mg PO DAILY Blood Pressure 08/08/23 08/08/23 08/08/23 History
tablet,extended release 24 hr
nystatin 100,000 unit/gram topical 1 applic topical [id number] PRN b/l 08/08/23 08/09/23 08/06/23 History
powder legs
pantoprazole 40 mg tablet,delayed 40 mg PO DAILY Gastrointestinal 08/08/23 08/08/23 08/08/23 History
release Issue
sertraline 50 mg tablet 50 mg PO DAILY Depression 08/08/23 08/08/23 08/08/23 History
valsartan 160 mg tablet 160 mg PO DAILY Blood Pressure 08/08/23 08/08/23 08/08/23 History
zinc 50 mg tablet 50 mg PO DAILY Supplement 08/08/23 08/08/23 08/08/23 History
Review of Systems
-
History Source: Patient
All other systems: Negative unless noted
Constitutional: Fatigue
Respiratory: Trouble Breathing
Neuro: Weakness
Vitals / Labs / Diagnostic Testing
Vital Signs
Temp Pulse Resp BP Pulse Ox
97.3 F 77 20 158/57 82
08/12/23 14:13 08/12/23 11:07 08/12/23 11:07 08/12/23 11:07 08/12/23 11:11
Lab Data
08/12/23 04:30
08/12/23 04:30
Microbiology
08/08/23 16:23 Foot - Right Wound Culture - Final
Gram negative bacilli
Group C Streptococcus
Streptococcus species
08/08/23 16:23 Foot - Right Gram Stain - Final
08/08/23 19:31 Nose MRSA Screen - Final
No Methicillin Resistant Staphylococcus aureus isolated.
Diagnostic Testing:
Physical Exam
-
HEENT: Normocephalic and Moist Mucous Membranes
Cardiovascular: Regular Rhythm, Murmur (n), Peripheral Edema (LUCINDA), Calf Tenderness (n) and JVD
Respiratory: Wheeze (n), Rales, Rhonchi and Accessory Resp Muscle Use (mild)
GI: Soft, Non Distended and Non Tender
Neurology: Awake, AO x 3 and No Motor Deficits (but weak)
Skin: Warm
General: Respiratory Distress (mild)
Assessment
-
Assessment:
Mrs Anahi Long is a 73/W adm 08-07 with 2-3 d h/o worsening dyspnea in setting of chronic hypoxic resp failure on home O2 at 3L and multiple comorbidities. At ER, POx 87% on O2 2L, deemed in ac/chronic HF, started on diuretic. Reportedly partial
use and sometimes refusal of BPAP as inpatient. Increasing O2 requirement from chronic baseline 3 L, ABG with respiratory acidosis and hypoxemia on O2 15L, resumed BPAP (currently at 14/6 c 10L O2), diuretic discontinued, atbs changed to zosyn (on
atbs since adm with interim changes as mentioned below), transferred to IMU, pulm consulted.
First DH adm
Impression:
Acute on chronic hypoxemia/hypercarbia
On home ventilator trilogy for last 1.5 y
Acute hypercarbia, respiratory acidosis
Bilateral pneumonia
No baseline CXR or CTs for comparison
HFpEF, off outpatient diuretic for 3 wks HAND PACKER/PACKAGER due to A/CKI
Anemia, severe. Unknown baseline
A/CKD HAND PACKER/PACKAGER, off furosemide by outpatient nephrology 3 wks HAND PACKER/PACKAGER
MRSA negative
Elevated D-dimer (likely due to severe infection, kidney disease)
Elevated BNP
Normal troponin
Normal TSH
Conditions HAND PACKER/PACKAGER:
Chronic hypoxemia/hypercarbia, on home ventilator trilogy for last 1.[address] Carter at [facility]
HFpEF
CKD stage IIIb
AFib not on AC due to hemorrhagic CVA late 2021 (warfarin initiated for LLE DVT but d/c upon CVA)
LLE DVT
FREDY/OHS on trilogy and O2 3.5-4L for last 1.5 y, reports partial compliance with 4-5 h use max for last 6 m
Pneumonia, Feb 2021, Jan 2022, adm to [facility]
HTN
GERD
Chronic R foot decubitus ulcer
Bedbound state
Depression
Morbid obesity
Non-smoker
DNR
Plan:
Transfer to IMU 08-11 due to increasing O2 requirements
On BPAP 14/ cwp with O2 10L, POx 92%
Awake, answers questions, feels better re dyspnea as compared to earlier today
Denies cough, CP, wheezing
On home ventilator for last 1.5y, limited compliance for last 6 m
LLNS
Not on outpatient BDS
IS while not on PAP therapy
to bring home ventilator
Adm CXR: portable, no baseline available, rotated, underpenetrated but suspicious for bilateral infiltrates.
CXR 08-11 with L mid ovoid infiltrate and patchy RUL infiltrate.
Chest CT s/c 08-11, no baseline available. Multiple bilateral dense infiltrates
TTE: LVEF 75%, normal DD, normal RV size/function
Clinically does not appear in HF
Continue BPAP
Follow oximetry, ABG, MS
In spite of hypoxemia and hypercarbia, awake, following commands, feels better
Continue empiric zosyn, consider ID consultation given clinical scenario, multiple comorbidities, chronic and infect R foot ulcer and previous pneumoniaa
Blood cx, COVID/flu, Leg/Strep Ags, UA/Ucx
Baseline EKG
States has no cough
Consider nephrology consultation given worsening renal function
Chronic R foot decubitus ulcer
Podiatry following
Does not probe to bone, no tunneling found
ANABELLA normal
Started on vanco/zosyn on adm, changed to unasyn on 08-09, changed to augmentin 08-10, changed to zosyn 08-10 upon transfer to IMU
D/w Mrs and Mr Javi Long at bedside
Needs to follow with pulm after d/c, follows Dr Carter at [facility]
[2023-08-12 14:19] LABS: B.E. -0.1 mmol/L; HCO3 26.8 mmol/L (21-28); O2 Saturation % 88.1 % (94-98); PCO2 57 mmHg (32-35); pH 7.28 (7.35-7.45)
[2023-08-12 14:20] LABS: O2 Therapy 101; PO2 45 mmHg (83-108)
[2023-08-12] MEDS: DILAUDID 0.25 MG IV ×2 (15:36→22:17)
[2023-08-12] MEDS: ZOSYN 50 IV (16:27)
[2023-08-12 17:29] LABS: COVID-19 Antigen Negative (Negative)
--- NOTE | 2023-08-12 17:44 | PTCARENOTE ---
Received this afternoon from CT scan- placed on IMU monitors- RT present - O2 midflow 15L sao2 84-89%- ABG obtained by RT and after results placed on Bipap per orders. Spouse at bedside. He notes that he does do some coercing with getting her to
wear mask at home as well. Right leg externally rotated and yells in pain with moving. They both state that her leg has been this way for years.
EKG obtained , purewick has been placed to attempt urine collection. Bladder scanned 268ml.
BC x1 set obtained so far. Will try for second.
Dilaudid IV given for pain 08/30. IV Zosyn received.
--- NOTE | 2023-08-12 20:41 | PTCARENOTE ---
Received pt from [facility]. Pt is AAOx3, drowsy, CAHTO, b/l foot drop. NSR on the monitor. On bipap 14/6 @ 15L O2 sat 95%, lungs diminished. Pt O2 sat dropped to 85% on bipap, CRTTS Esperanza and RT Janine notified ABG drawn. Pw in place for incont. R
foot wound, wound care provided (see worklist). Pt c/o 4/10 pain, PRN pain medication given (see MAR). Pt is laying in bed with call green in reach.
[2023-08-12] MEDS: AFRIN NASAL SPRAY 30 SPRAYS NASAL (22:09)
[2023-08-12] MEDS: LIPITOR 40 MG PO (22:09)
[2023-08-13] VITALS (15 sets, daily range): BP systolic 135–160; BP diastolic 46–141; PULSE 2; BMI 36.7
[2023-08-13 00:22] LABS: B.E. 0.5 mmol/L; HCO3 26.8 mmol/L (21-28); O2 Saturation % 98.4 % (94-98); PCO2 52 mmHg (32-35); PO2 66 mmHg (83-108); pH 7.32 (7.35-7.45)
[2023-08-13] MEDS: ZOSYN 50 IV ×4 (00:31→23:46)
[2023-08-13 04:09] LABS: Hematocrit 22.9 % (37.0-47.0); Mean Corp Hgb Conc. 30.1 g/dL (33.0-37.0); Mean Corpuscular Hgb 28.3 pg (27.0-31.0); Mean Corpuscular Volume 93.9 fL (81.0-99.0); Mean Platelet Volume 10.1 fL (7.4-10.4); Platelet Count 253 10^3/uL (130-400); Red Blood Cell Count 2.44 10^6/uL (4.20-5.40); Red Cell Dist. Width 14.4 % (11.5-14.5); White Blood Cell Count 12.2 10^3/uL (4.8-10.8)
[2023-08-13 04:33] LABS: Blood Urea Nitrogen 79 mg/dl (7-17); Calcium 9.3 mg/dl (8.4-10.2); Carbon Dioxide 27 mmol/L (22-30); Chloride 108 mmol/L (98-107); Estimated Creatinine Clearance 21 ml/min; Glucose 123 mg/dl (70-99); Potassium 3.8 mmol/L (3.5-5.1); Sodium 145 mmol/L (135-145); eGFR 16.12
[2023-08-13] MEDS: VITAMIN D3 (cholecalciferol) 50 MCG PO (09:17)
[2023-08-13] MEDS: HEPARIN 5000 UNITS SC ×2 (09:17→19:23)
[2023-08-13] MEDS: PROTONIX 40 MG PO (09:17)
[2023-08-13] MEDS: VITAMIN C 250 MG PO (09:17)
[2023-08-13] MEDS: TOPROL XL 100 MG PO (09:17)
[2023-08-13] MEDS: NORVASC 5 MG PO (09:18)
[2023-08-13] MEDS: FEOSOL 325 MG PO (09:18)
[2023-08-13] MEDS: AFRIN NASAL SPRAY 30 SPRAYS NASAL ×2 (09:18→19:23)
[2023-08-13] MEDS: ZOLOFT 50 MG PO (09:18)
[2023-08-13] MEDS: LR 1000 IV (09:53)
--- NOTE | 2023-08-13 11:05 | W.PN.PUL3 ---
Today's Communication / Plan
-
Continue BiPAP therapy
Avoid sedatives
Continue antibiotics
Follow cultures
Incentive spirometry encouraged
Assessment
-
Assessment:
Mrs Anahi Long is a 73/W adm 08-07 with 2-3 d h/o worsening dyspnea in setting of chronic hypoxic resp failure on home O2 at 3L and multiple comorbidities. At ER, POx 87% on O2 2L, deemed in ac/chronic HF, started on diuretic. Reportedly partial
use and sometimes refusal of BPAP as inpatient. Increasing O2 requirement from chronic baseline 3 L, ABG with respiratory acidosis and hypoxemia on O2 15L, resumed BPAP (currently at 14/6 c 10L O2), diuretic discontinued, atbs changed to zosyn (on
atbs since adm with interim changes as mentioned below), transferred to IMU, pulm consulted.
First DH adm
Impression:
Acute on chronic hypoxemia/hypercarbia
On home ventilator trilogy for last 1.5 y
Acute hypercarbia, respiratory acidosis
Bilateral pneumonia
No baseline CXR or CTs for comparison
HFpEF, off outpatient diuretic for 3 wks WEDDING COORDINATOR due to A/CKI
Anemia, severe. Unknown baseline
A/CKD WEDDING COORDINATOR, off furosemide by outpatient nephrology 3 wks WEDDING COORDINATOR
MRSA negative
Elevated D-dimer (likely due to severe infection, kidney disease)
Elevated BNP
Normal troponin
Normal TSH
Conditions WEDDING COORDINATOR:
Chronic hypoxemia/hypercarbia, on home ventilator trilogy for last 1.[address] Carter at [facility]
HFpEF
CKD stage IIIb
AFib not on AC due to hemorrhagic CVA late 2021 (warfarin initiated for LLE DVT but d/c upon CVA)
LLE DVT
FREDY/OHS on trilogy and O2 3.5-4L for last 1.5 y, reports partial compliance with 4-5 h use max for last 6 m
Pneumonia, Feb 2021, Jan 2022, adm to [facility]
HTN
GERD
Chronic R foot decubitus ulcer
Bedbound state
Depression
Morbid obesity
Non-smoker
DNR
Plan:
Transferred to IMU 08-11 due to increasing O2 requirements
-
Acute on chronic hypercapnic/hypoxemic respiratory failure.
CT chest suggestive of bilateral pneumonia. Does have small bilateral pleural effusion-heart failure component also possible.
-
Initially diuresed but creatinine now is elevated.
-
Continue BiPAP therapy as needed and at bedtime.
Maintain pulse ox above 90%.
Mental status has improved since admission.
Denies cough, CP, wheezing
-
On home ventilator for last 1.5y, limited compliance for last 6 m
Not on outpatient BDS
Incentive spirometry encouraged.
-
Adm CXR: portable, no baseline available, rotated, underpenetrated but suspicious for bilateral infiltrates.
CXR 08-11 with L mid ovoid infiltrate and patchy RUL infiltrate.
Chest CT s/c 08-11, no baseline available. Multiple bilateral dense infiltrates
TTE: LVEF 75%, normal DD, normal RV size/function
proBNP elevated on admission.
Last ABG noted: 7. (08/13/2023.)
Avoid sedatives
Repeat ABG tomorrow.
Mental status has improved
-
Continue empiric zosyn for possible pneumonia.
consider ID consultation given clinical scenario, multiple comorbidities, chronic and infect R foot ulcer and previous pneumoniaa
Blood cx,Leg/Strep Ags, UA/Ucx-pending.
Influenza negative
Covid neg
States has no cough
-
Consider nephrology consultation given worsening renal function.
Echocardiogram 08/09/2023: Report reviewed, mild LVH. Ejection fraction 75%. Normal right ventricular size and function. No significant valvular abnormalities.
Diuretics on hold, due to increased creatinine.
Follow electrolytes.
-
Chronic R foot decubitus ulcer
Podiatry following
Does not probe to bone, no tunneling found
ANABELLA normal
Management per primary team.
-
Needs to follow with pulm after d/c, follows Dr Carter at [facility] group
-
Subjective Data
-
Date of Service:
Date of Service: August 13, 2023
Objective Data
Data Reviewed
Vital Signs / I&O / Oxygen:
Vital Signs
Temp Pulse Resp BP Pulse Ox
97.0 F 60 16 146/55 97
08/13/23 07:35 08/13/23 06:00 08/13/23 06:00 08/13/23 06:00 08/13/23 06:00
Intake and Output
08/12/23 08/13/23 08/14/23
06:59 06:59 06:59
Intake Total 840 / 840 630 / 630
Output Total 350 / 350
Balance 840 / 840 280 / 280
SaO2 97
Nasal Cannula flow liters per 15
minute
Labs/Micro/Reports
Lab Data
08/13/23 03:31
08/13/23 03:31
Laboratory Results
08/12/23 08/13/23
14:12 00:15
pH 7.28 L 7.32 L
pCO2 57 H 52 H
pO2 45 L* 66 L
HCO3 26.8 26.8
O2 Delivery Level 101
Microbiology
08/12/23 17:03 Nasal Swab Influenza Types A & B (JOSE ANTONIO) - Final
Negative for Influenza A & B, NAAT
Negative results must be combined with clinical observations
and patient history.
Nucleic Acid Amplification test (NAAT)performed on the
[employer] platform.
08/08/23 16:23 Foot - Right Wound Culture - Final
Gram negative bacilli
Group C Streptococcus
Streptococcus species
08/08/23 16:23 Foot - Right Gram Stain - Final
08/08/23 19:31 Nose MRSA Screen - Final
No Methicillin Resistant Staphylococcus aureus isolated.
--- NOTE | 2023-08-13 15:18 | W.PN.HOSP.TC ---
Today's Communication/Plan
-
incentive jairon
abx
Trelegy
LR bolus, monitor bmp
Assessment / Plan
Assessment / Plan
TTE
Mild concentric left ventricular hypertrophy. Normal regional wall motion. Left ventricular ejection fraction is 75% by Pham's method.
Normal diastolic function. Normal right ventricular size and function. Trace mitral regurgitation.
Aortic sclerosis without stenosis. Mild tricuspid regurgitation.
Estimated pulmonary artery pressure of 37 mmHg, assuming a right atrial pressure of 3 mmHg. Normal pericardium without effusion.
The IVC is of normal size and demonstrates normal respiratory variation.
NO prior available for comparison
CT right foot
Findings suggesting moderate cellulitis of the dorsal right foot. No focal fluid collection to suggest abscess . Limited exam without IV contrast.
LE arterial doppler
1. Noncompressible arteries bilaterally, suggestive of medial calcinosis and/or arterial noncompliance, which makes measured ankle-brachial indices unreliable. Toe brachial indices are considered more reliable in this situation.
2. Right toe brachial index 1.03 (normal greater than 0.7). No focal arterial stenosis demonstrated. Spectral Doppler waveforms are normal to the level of ankle.
3. Left toe brachial index 1.23. No focal arterial stenosis demonstrated. Spectral Doppler waveforms are normal to the level of ankle.

# Acute on chronic hypoxic respiratory failure
#B/l Pneumonia
--Patient usually on 3 to oxygen through nasal cannula at home 13/11. now on 10L
-No evidence of fluid overload on imaging, proBNP unreliable as CONSTANCE on CKD; may be component of PAH
-Stop lasix
-Zosyn
-F/u cultures if expectorating
- Incentive Jairon
-appreciate pulm consult
-EF 75%;
Echocardiogram report as above
-Tx to IMU
#CONSTANCE on Presumed CKD stage IIIb
-stop lasix
-Gentle fluid if CT chest unremarkable
-Patient was admitted taken off of Lasix due to worsening renal function by primary ultrasonic cleaner 3 wks back. Patient was apparently on p.o. Lasix 40 g twice daily before.
-Bladder scan and straight cath protocol ordered
#Hypernatremia
-2/2 to overdiuresis
-hold lasix
#Right foot chronic decubitus wound
-Ongoing for 2.5 yrs. Patient gets wound care at home by VN. Have been seen by podiatry in the past as well
-Infected foul-smelling purulent drainage on exam in ER
-Superficial Wound culture growing gram neg bacilli, group c streptococcus
-Lower extremity ANABELLA report as above
-CT left foot/xr did not show osteo. no abscess.
-Podiatry evaluated. continue local wound care.
-wound looks dry with healthy granulation tissue. to complete abx course tomorrow although no on zosyn
#history of A-fib
h/o of LLE DVT
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
-can not get CT Chest PE with renal function and V/q due to pulm edema
-dvt study negative this admit
#Essential hypertension
-Continue Norvasc/metoprolol with holding parameters. Hold valsartan
6. FERDY
-continue on CPAP at night. patient does not know setting.
-brought in Trelegy - cont
morbid obesity
bedbound
recovered type 2 diabetes - A1c 5.1
depression
GERD
DVT PPX - heparin subq
DNR/DNI
Total time spent on today's encounter was 55 minutes which included time spent in counseling the patient/family regarding diagnosis and treatment plan as listed above, goals of care, and symptom management. Case was discussed with nursing staff,
specialists, and care coordinators/case management. All labs and imaging personally reviewed by me. Remainder the time spent in detailed review of previous records, lab data, imaging, and other medical provider documentation.
Anticipated Discharge: > 48 hours
Subjective/Interval History
-
Date of Service: August 13, 2023
feels better today
Objective Data
-
Labs:
Laboratory Results
08/13/23
03:31
WBC 12.2 H
Hgb 7.0 L
Hct 22.9 L
Plt Count 253
Sodium 145
Potassium 3.8
Chloride 108 H
Carbon Dioxide 27
BUN 79 H
Creatinine 3.0 H
Glucose 123 H
Calcium 9.3
Vital Signs:
Vital Signs
Temp Pulse Resp BP Pulse Ox
96.8 F L 60 16 146/55 88
08/13/23 14:50 08/13/23 06:00 08/13/23 06:00 08/13/23 06:00 08/13/23 14:25
I&O
08/12/23 08/13/23 08/14/23
06:59 06:59 06:59
Intake Total 840 / 840 630 / 630
Output Total 350 / 350
Balance 840 / 840 280 / 280
Review of Systems
-
History Source: Patient
All other systems: Not reviewed unless documented
Physical Exam
-
General: No Apparent Distress, Comfortable and Morbidly Obese
HEENT: Oxygen (10L NC)
Respiratory: Rales (mild although distant)
Cardiac: Regular Rhythm and S1/S2; Negative Murmur or Rub
GI: Soft, Nontender and Nondistended
Musculoskeletal: No Edema
Neuro: Awake, Alert, Oriented, No Motor Deficits and Nonfocal/Grossly Intact
Psych: Calm
Data Reviewed
-
Diagnostic Radiology: Image personally visualized and interpreted and Report Reviewed by me
Labs: Labs Reviewed by me
[2023-08-13] MEDS: DILAUDID 0.25 MG IV ×2 (18:24→21:25)
--- NOTE | 2023-08-13 18:28 | PTCARENOTE ---
Remains on midflow at 15L sao2 88-91%- unable to wean. No distress noted. Appetite poor, drank about 500ml water, 2 yogurts today. IV bolus 1 liter earlier as documented. [place] intact had no urine output all day - just now found 200ml in
suction container.
C/o pain right leg and latrice knee 06/30- IV Dilaudid administered x1. She will try to refuse turns and care at times but reinforced the need. Emotional support provided.
[2023-08-13] MEDS: LIPITOR 40 MG PO (19:28)
--- NOTE | 2023-08-13 20:05 | PTCARENOTE ---
Received pt from dayshift RN. Pt on 15L midflow O2 sat 94%, pt asking to be placed on bipap, RT notified. Pt c/o 4/10 pain with turn, PRN Dilaudid given (see MAR). Pt is laying comfortable in bed with call green in reach.
[2023-08-13] MEDS: DESENEX/MITRAZOL/ZEASORB 1 APPLIC TOPICAL (22:02)
[2023-08-14] VITALS (12 sets, daily range): BP systolic 123–148; BP diastolic 47–58; PULSE 2–58; BMI 37.4
[2023-08-14 04:50] LABS: Hematocrit 21.7 % (37.0-47.0); Mean Corp Hgb Conc. 29.5 g/dL (33.0-37.0); Mean Corpuscular Hgb 28.7 pg (27.0-31.0); Mean Corpuscular Volume 97.3 fL (81.0-99.0); Mean Platelet Volume 10.1 fL (7.4-10.4); Platelet Count 220 10^3/uL (130-400); Red Blood Cell Count 2.23 10^6/uL (4.20-5.40); Red Cell Dist. Width 14.3 % (11.5-14.5)
[2023-08-14 05:02] LABS: Blood Urea Nitrogen 84 mg/dl (7-17); Calcium 9.5 mg/dl (8.4-10.2); Carbon Dioxide 25 mmol/L (22-30); Chloride 109 mmol/L (98-107); Estimated Creatinine Clearance 20 ml/min; Glucose 120 mg/dl (70-99); Potassium 3.8 mmol/L (3.5-5.1); Sodium 146 mmol/L (135-145); eGFR 15.49
[2023-08-14 05:03] LABS: Hemoglobin 6.4 g/dL (12.0-16.0)
--- NOTE | 2023-08-14 05:42 | W.PN.UPDATE ---
Update Note
Progress Note Update
Morning Labs: Hgb 6.4/Hct 21.7 down from Hgb 7.0/Hct 22.9, obtained blood consent. Order placed for type & screen and 1 unit PRBCs to transfuse today.
Explained what blood/blood component transfusions are and transfusion protocol. Reviewed the associated risks, alternatives, and possible complications of the procedure. Patient AAox4, agreeable to blood transfusion, signed consent in presence of
this provider, reviewed with nursing, nurse to place signed copy in chart.
[2023-08-14] MEDS: AFRIN NASAL SPRAY 1 SPRAYS NASAL (09:01)
[2023-08-14] MEDS: VITAMIN C 250 MG PO (09:01)
[2023-08-14] MEDS: ZOSYN 50 IV ×2 (09:01→17:25)
[2023-08-14] MEDS: ZOLOFT 50 MG PO (09:02)
[2023-08-14] MEDS: PROTONIX 40 MG PO (09:02)
[2023-08-14] MEDS: NORVASC 5 MG PO (09:02)
[2023-08-14] MEDS: TOPROL XL 100 MG PO (09:02)
[2023-08-14] MEDS: VITAMIN D3 (cholecalciferol) 50 MCG PO (09:02)
[2023-08-14] MEDS: FEOSOL 325 MG PO (09:02)
[2023-08-14] MEDS: HEPARIN 5000 UNITS SC ×2 (09:03→20:30)
[2023-08-14] MEDS: LR 1000 IV (09:03)
[2023-08-14 09:37] LABS: Iron 51 ug/dl (37-170)
[2023-08-14 09:47] LABS: Percent Saturation 30 % (20-50); Total Iron Binding Capacity 168 ug/dl (265-497)
--- NOTE | 2023-08-14 10:22 | W.PN.PUL3 ---
Today's Communication / Plan
-
Continue supplemental oxygen
BiPAP as needed
Incentive spirometry
Continue antibiotics
Nutritional support with aspiration precaution
Anemia management per primary team
Assessment
-
Assessment:
Mrs Anahi Long is a 73/W adm 08-07 with 2-3 d h/o worsening dyspnea in setting of chronic hypoxic resp failure on home O2 at 3L and multiple comorbidities. At ER, POx 87% on O2 2L, deemed in ac/chronic HF, started on diuretic. Reportedly partial
use and sometimes refusal of BPAP as inpatient. Increasing O2 requirement from chronic baseline 3 L, ABG with respiratory acidosis and hypoxemia on O2 15L, resumed BPAP (currently at 14/6 c 10L O2), diuretic discontinued, atbs changed to zosyn (on
atbs since adm with interim changes as mentioned below), transferred to IMU, pulm consulted.
First DH adm
Impression:
Acute on chronic hypoxemia/hypercarbia
On home ventilator trilogy for last 1.5 y
Acute hypercarbia, respiratory acidosis
Bilateral pneumonia
No baseline CXR or CTs for comparison
HFpEF, off outpatient diuretic for 3 wks [employer]ICK [employer]AY[employer] due to A/CKI
Anemia, severe. Unknown baseline
A/CKD [employer]ICK [employer], off furosemide by outpatient nephrology 3 wks [employer]ICK [employer]
MRSA negative
Elevated D-dimer (likely due to severe infection, kidney disease)
Elevated BNP
Normal troponin
Normal TSH
Conditions BRICK [employer]AYER:
Chronic hypoxemia/hypercarbia, on home ventilator trilogy for last 1.[address] Carter at [facility]
HFpEF
CKD stage IIIb
AFib not on AC due to hemorrhagic CVA late 2021 (warfarin initiated for LLE DVT but d/c upon CVA)
LLE DVT
FREDY/OHS on trilogy and O2 3.5-4L for last 1.5 y, reports partial compliance with 4-5 h use max for last 6 m
Pneumonia, Feb 2021, Jan 2022, adm to [facility]
HTN
GERD
Chronic R foot decubitus ulcer
Bedbound state
Depression
Morbid obesity
Non-smoker
DNR
Plan:
Transferred to IMU 08-11 due to increasing O2 requirements
-
Acute on chronic hypercapnic/hypoxemic respiratory failure.
Respiratory status remains tenuous. 15 L via mid flow.
CT chest suggestive of bilateral pneumonia. Does have small bilateral pleural effusion-heart failure component also possible.
-
Initially diuresed but creatinine now is elevated.
-
Continue BiPAP therapy as needed and at bedtime.
Maintain pulse ox above 90%. Currently on mid flow.
High flow oxygen may be necessary to maintain pulse ox above 90%.
Mental status has improved since admission.
Not bronchospastic on exam.
-
Incentive spirometry encouraged.
Patient is at baseline bedbound.
-
Adm CXR: portable, no baseline available, rotated, underpenetrated but suspicious for bilateral infiltrates.
CXR with L mid ovoid infiltrate and patchy RUL infiltrate.
Chest CT s/c 08-11, no baseline available. Multiple bilateral dense infiltrates, small bilateral pleural effusions.
TTE: LVEF 75%, normal DD, normal RV size/function
proBNP elevated on admission.
Last ABG noted: 7.32/66 (08/13/2023.)
Avoid sedatives
Repeat ABG today, pending
Mental status has improved
Continue nocturnal BiPAP as able.
Patient usually on trilogy ventilator at home
-
Continue antibiotics to cover for pneumonia. Currently on Zosyn.
MRSA screening negative
All cultures negative.
Influenza negative
Covid neg
-
Doubt noninfectious etiology such as cryptogenic pneumonia or vasculitis.
Will continue to follow closely.
No indication for systemic corticosteroids at this point.
If continues to worsen despite antibiotic may need to consider bronchoscopic evaluation.
-
Worsening renal function.
Diuretics on hold
No significant metabolic acidosis
may need nephrology evaluation if continues to worsen.
-
Echocardiogram 08/09/2023: Report reviewed, mild LVH. Ejection fraction 75%. Normal right ventricular size and function. No significant valvular abnormalities.
Diuretics on hold, due to increased creatinine.
Follow electrolytes.
-
Anemia, likely due to renal disease.
Management per primary team.
May need transfusion to improve oxygenation as well
-
Chronic R foot decubitus ulcer
Podiatry following
Does not probe to bone, no tunneling found
ANABELLA normal
Management per primary team.
-
Needs to follow with pulm after d/c, follows Dr Carter at [facility]
-
Subjective Data
-
Date of Service:
Date of Service: August 14, 2023
Chief Complaint: Pulmonary Follow Up (Bilateral pneumonia/acute on chronic hypoxemic/hypercapnic respiratory failure.)
Subjective:
Remains on supplemental oxygen.
Denies hemoptysis.
Denies any chest discomfort.
Denies nausea or vomiting.
Review of Systems
General: Fever (n)
Cardiopulmonary: Dyspnea, Dyspnea on Exertion, Cough, Sputum Production (n) and Wheezing (n)
GI: Abdominal Pain (n)
Objective Data
Data Reviewed
Vital Signs / I&O / Oxygen:
Vital Signs
Temp Pulse Resp BP Pulse Ox
96.2 F L 60 17 136/50 86
08/14/23 07:43 08/14/23 06:00 08/14/23 06:00 08/14/23 06:00 08/14/23 06:00
Intake and Output
08/13/23 08/14/23 08/15/23
06:59 06:59 06:59
Intake Total 630 / 630 1740 / 1740
Output Total 350 / 350 200 / 200
Balance 280 / 280 1540 / 1540
SaO2 86
Nasal Cannula flow liters per 15
minute
Physical Exam
General: Respiratory Distress (none at rest)
HEENT: Normocephalic and Moist Mucous Membranes
Cardiovascular: S1-S2
Respiratory: Wheeze (n) and Crackles
GI: Distended (obese)
Neurology: Awake and Alert
Skin: Warm
Labs/Micro/Reports
Lab Data
08/14/23 04:29
08/14/23 04:29
Microbiology
08/12/23 19:40 Blood/Venous Blood Culture - Preliminary
No Growth in 24 hours- Final report to follow
08/12/23 17:24 Blood/Venous Blood Culture - Preliminary
No Growth in 24 hours- Final report to follow
08/12/23 19:34 Urine Legionella Urinary Antigen - Final
Negative for Legionella pneumophila Serogroup 1 antigen.
A negative result does not rule out the possiblity of
Legionella infection due to other serogroups or species of
Legionella. Clinical correlation is recommended.
08/12/23 19:34 Urine Streptococcus pneumoniae Antigen (M - Final
Negative for Streptococcus pneumoniae antigen.
A negative result does not exclude infection with
Streptococcus pneumoniae. Clinical correlation is
recommended.
08/12/23 17:03 Nasal Swab Influenza Types A & B (JOSE ANTONIO) - Final
Negative for Influenza A & B, NAAT
Negative results must be combined with clinical observations
and patient history.
Nucleic Acid Amplification test (NAAT)performed on the
[employer] platform.
[2023-08-14 10:47] LABS: Folate > 20.0 ng/ml (2.76-20); Vitamin B12 884 pg/ml (239-931)
[2023-08-14] MEDS: DILAUDID 0.25 MG IV (12:32)
--- NOTE | 2023-08-14 14:56 | W.PN.HOSP.TC ---
Today's Communication/Plan
-
incentive srikanth
abx
BiPAP
LR for now, monitor Scr; FeNa
Transfuse 1u prbc, monitoring for bleeding
Assessment / Plan
Assessment / Plan
TTE
Mild concentric left ventricular hypertrophy. Normal regional wall motion. Left ventricular ejection fraction is 75% by Pham's method.
Normal diastolic function. Normal right ventricular size and function. Trace mitral regurgitation.
Aortic sclerosis without stenosis. Mild tricuspid regurgitation.
Estimated pulmonary artery pressure of 37 mmHg, assuming a right atrial pressure of 3 mmHg. Normal pericardium without effusion.
The IVC is of normal size and demonstrates normal respiratory variation.
NO prior available for comparison
CT right foot
Findings suggesting moderate cellulitis of the dorsal right foot. No focal fluid collection to suggest abscess . Limited exam without IV contrast.
LE arterial doppler
1. Noncompressible arteries bilaterally, suggestive of medial calcinosis and/or arterial noncompliance, which makes measured ankle-brachial indices unreliable. Toe brachial indices are considered more reliable in this situation.
2. Right toe brachial index 1.03 (normal greater than 0.7). No focal arterial stenosis demonstrated. Spectral Doppler waveforms are normal to the level of ankle.
3. Left toe brachial index 1.23. No focal arterial stenosis demonstrated. Spectral Doppler waveforms are normal to the level of ankle.

# Acute on chronic hypoxic respiratory failure
#B/l Pneumonia
--Patient usually on 3 to oxygen through nasal cannula at home 13/11. now on 10L
-No evidence of fluid overload on imaging, proBNP unreliable as CONSTANCE on CKD; may be component of PAH versus acute HFpEF
-Stop lasix
-Zosyn
-F/u cultures if expectorating
- Incentive [place]
-appreciate pulm consult
-EF 75%;
Echocardiogram report as above
#CONSTANCE on Presumed CKD stage IIIb
-stop lasix
-Gentle fluid if CT chest unremarkable
-Patient was admitted taken off of Lasix due to worsening renal function by primary appeals specialist 3 wks back. Patient was apparently on p.o. Lasix 40 g twice daily before.
-Bladder scan and straight cath protocol ordered
�Follow-up Naomi
� Continue IV fluid for today
� Mostly in ATN, if no evidence of any improvement by tomorrow, consult nephrology
#Hypernatremia
-2/2 to overdiuresis
-hold lasix
-ctm
#Anemia
� Chronic
� Does not appear to be actively bleeding
� Transfuse 1 unit PRBC 08/13
� Continue to trend CBC
� Iron saturation within normal limits, ferritin elevated
- I suspect this is due to chronic illness
#Right foot chronic decubitus wound
-Ongoing for 2.5 yrs. Patient gets wound care at home by VN. Have been seen by podiatry in the past as well
-Infected foul-smelling purulent drainage on exam in ER
-Superficial Wound culture growing gram neg bacilli, group c streptococcus
-Lower extremity ANABELLA report as above
-CT left foot/xr did not show osteo. no abscess.
-Podiatry evaluated. continue local wound care.
-wound looks dry with healthy granulation tissue. to complete abx course today 08/13 although now on zosyn
#history of A-fib
h/o of LLE DVT
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
-can not get CT Chest PE with renal function and V/q due to pulm edema
-dvt study negative this admit
#Essential hypertension
-Continue Norvasc/metoprolol with holding parameters. Hold valsartan
#FREDY
-cont bipap
-Trelegy at home
morbid obesity
bedbound
recovered type 2 diabetes - A1c 5.1
depression
GERD
DVT PPX - heparin subq
DNR/DNI
Total time spent on today's encounter was 55 minutes which included time spent in counseling the patient/family regarding diagnosis and treatment plan as listed above, goals of care, and symptom management. Case was discussed with nursing staff,
specialists, and care coordinators/case management. All labs and imaging personally reviewed by me. Remainder the time spent in detailed review of previous records, lab data, imaging, and other medical provider documentation.
Anticipated Discharge: > 48 hours
Subjective/Interval History
-
Date of Service: August 14, 2023
Feels somewhat better today
Objective Data
-
Labs:
Laboratory Results
08/14/23
04:29
WBC 12.0 H
Hgb 6.4 L*
Hct 21.7 L
Plt Count 220
Sodium 146 H
Potassium 3.8
Chloride 109 H
Carbon Dioxide 25
BUN 84 H
Creatinine 3.1 H
Glucose 120 H
Calcium 9.5
Vital Signs:
Vital Signs
Temp Pulse Resp BP Pulse Ox
97.4 F 60 19 139/55 81
08/14/23 13:45 08/14/23 13:45 08/14/23 13:45 08/14/23 13:45 08/14/23 08:00
I&O
08/13/23 08/14/23 08/15/23
06:59 06:59 06:59
Intake Total 630 / 630 1740 / 1740 0 / 0
Output Total 350 / 350 200 / 200
Balance 280 / 280 1540 / 1540 0 / 0
Review of Systems
-
History Source: Patient
All other systems: Not reviewed unless documented
Physical Exam
-
General: No Apparent Distress, Comfortable and Morbidly Obese
HEENT: Oxygen (10L NC)
Respiratory: Rales (mild although distant)
Cardiac: Regular Rhythm and S1/S2; Negative Murmur or Rub
GI: Soft, Nontender and Nondistended
Musculoskeletal: No Edema
Neuro: Awake, Alert, Oriented, No Motor Deficits and Nonfocal/Grossly Intact
Psych: Calm
Data Reviewed
-
Diagnostic Radiology: Image personally visualized and interpreted and Report Reviewed by me
Labs: Labs Reviewed by me
--- NOTE | 2023-08-14 17:07 | CM ---
Patient with Dx Acute on chronic hypoxic respiratory failure, PNA, CONSTANCE, Anemia, Right foot chronic decubitus wound. O2 15L, BiPAP. Receiving IVF, IV Abx. Wound care to right LE.
As per prior CM notes; patient is bedbound at baseline. Has home O2, CPAP.
Per pulmonary notes: On home ventilator trilogy for last 1.5 yrs.
CM continuing to follow.
Plan offer VN for wound care.
[2023-08-14] MEDS: LIPITOR 40 MG PO (20:30)
[2023-08-14] MEDS: DESENEX/MITRAZOL/ZEASORB 1 APPLIC TOPICAL (20:35)
[2023-08-14] MEDS: TYLENOL 650 MG PO (20:40)
[2023-08-15] VITALS (22 sets, daily range): BP systolic 91–168; BP diastolic 42–99; PULSE 2–68; BMI 37.6
[2023-08-15] MEDS: ZOSYN 50 IV ×4 (01:19→23:37)
[2023-08-15 05:42] LABS: Mean Corpuscular Hgb 28.8 pg (27.0-31.0); Mean Corpuscular Volume 96.1 fL (81.0-99.0); Platelet Count 213 10^3/uL (130-400); Red Blood Cell Count 2.81 10^6/uL (4.20-5.40); Red Cell Dist. Width 15.1 % (11.5-14.5); White Blood Cell Count 13.6 10^3/uL (4.8-10.8)
[2023-08-15] MEDS: LR 1000 IV (05:45)
--- NOTE | 2023-08-15 05:48 | PTCARENOTE ---
Anahi did not want to be repositioned, turned or cleaned up at all tonight. She stated she is waiting for her to get here in the morning. She reported some hallucinations this morning, stating she saw some people in the room. Oriented to
place and situation.
Overnight she was awake most of the night on the Bipap; pt complains of the mask being uncomfortable. Pt desats to low 80s; NRB and 15L midflow on when not on Bipap to help keep Sp02 >90%. Tele SR/SB. Call green within reach. Pt calls appropriately.
[2023-08-15 06:01] LABS: Hemoglobin 8.1 g/dL (12.0-16.0)
[2023-08-15 06:26] LABS: ALT (SGPT) 13 U/L (0-35); AST (SGOT) 22 U/L (14-36); Albumin 3.2 g/dl (3.5-5.0); Alkaline Phosphatase 74 U/L (38-126); Blood Urea Nitrogen 81 mg/dl (7-17); Calcium 9.3 mg/dl (8.4-10.2); Carbon Dioxide 25 mmol/L (22-30); Chloride 108 mmol/L (98-107); Estimated Creatinine Clearance 19 ml/min; Glucose 109 mg/dl (70-99); Magnesium 1.8 mg/dl (1.6-2.3); Potassium 3.9 mmol/L (3.5-5.1); Sodium 145 mmol/L (135-145); Total Bilirubin 0.7 mg/dl (0.2-1.3); Total Protein 5.9 g/dl (6.3-8.2); eGFR 14.37
[2023-08-15] MEDS: HEPARIN 5000 UNITS SC ×2 (07:53→20:54)
[2023-08-15] MEDS: FEOSOL PO ×2 (07:53→10:43)
[2023-08-15] MEDS: VITAMIN D3 (cholecalciferol) PO ×2 (07:53→10:43)
[2023-08-15] MEDS: TOPROL XL PO ×2 (07:53→10:42)
[2023-08-15] MEDS: PROTONIX PO ×2 (07:53→10:42)
[2023-08-15] MEDS: ZOLOFT PO ×2 (07:53→10:43)
[2023-08-15] MEDS: NORVASC PO ×2 (07:53→10:42)
[2023-08-15] MEDS: VITAMIN C PO ×2 (07:53→10:41)
[2023-08-15] MEDS: DILAUDID 0.25 MG IV (07:54)
--- NOTE | 2023-08-15 09:34 | W.PN.PUL3 ---
Today's Communication / Plan
-
Will add a dose of vancomycin
Lasix 80 mg
ABG now
Continue Zosyn
Noninvasive mechanical ventilation/high flow as able- Bipap adjusted
Respiratory status remains tenuous
Start dexamethasone, significant congested. Cannot rule out noninfectious etiology such as cryptogenic pneumonia either.
Assessment
-
Assessment:
Mrs Anahi Lnog is a 73/W adm 08-07 with 2-3 d h/o worsening dyspnea in setting of chronic hypoxic resp failure on home O2 at 3L and multiple comorbidities. At ER, POx 87% on O2 2L, deemed in ac/chronic HF, started on diuretic. Reportedly partial
use and sometimes refusal of BPAP as inpatient. Increasing O2 requirement from chronic baseline 3 L, ABG with respiratory acidosis and hypoxemia on O2 15L, resumed BPAP (currently at 14/6 c 10L O2), diuretic discontinued, atbs changed to zosyn (on
atbs since adm with interim changes as mentioned below), transferred to IMU, pulm consulted.
First DH adm
Impression:
Acute on chronic hypoxemia/hypercarbia
On home ventilator trilogy for last 1.5 y
Acute hypercarbia, respiratory acidosis
Bilateral pneumonia
No baseline CXR or CTs for comparison
HFpEF, off outpatient diuretic for 3 wks [employer] due to A/CKI
Anemia, severe. Unknown baseline
A/CKD [employer], off furosemide by outpatient nephrology 3 wks [employer]
MRSA negative
Elevated D-dimer (likely due to severe infection, kidney disease)
Elevated BNP
Normal troponin
Normal TSH
Conditions [employer]:
Chronic hypoxemia/hypercarbia, on home ventilator trilogy for last 1.[address] Carter at [facility]
HFpEF
CKD stage IIIb
AFib not on AC due to hemorrhagic CVA late 2021 (warfarin initiated for LLE DVT but d/c upon CVA)
LLE DVT
FREDY/OHS on trilogy and O2 3.5-4L for last 1.5 y, reports partial compliance with 4-5 h use max for last 6 m
Pneumonia, Feb 2021, Jan 2022, adm to [facility]
HTN
GERD
Chronic R foot decubitus ulcer
Bedbound state
Depression
Morbid obesity
Non-smoker
DNR
Plan:
Transferred to [facility] 08-11 due to increasing O2 requirements
Worsening oxygen requirements since yesterday: Now on a nonrebreather mask and 15 L mid flow.
Borderline oxygenation.
Not on distress at rest.
-
CT chest suggestive of bilateral pneumonia. Does have small bilateral pleural effusion-heart failure component also possible.
Chest x-ray 08/15/2023: Reviewed persistent bilateral infiltrate-stable compared to yesterday. No significant pleural effusion per
-
Initially diuresed but creatinine now is elevated.
-
Obtain ABG: If not significantly decompensated hypercapnia then transition to high flow oxygen.
If patient has decompensated hypercapnic respiratory failure and there is no quick improvement after 30 to 40 minutes of BiPAP then will need intubation.
BiPAP pressures adjusted 20/8: Better chest movement, pulse ox 92%. Appears comfortable.
Rhonchi bilaterally on exam.
-
Mental status has improved since admission.
-
Cannot rule out noninfectious etiology. Cryptogenic pneumonia/DAH/etc.
Given worsening hypoxemia, poor air movement, will start IV dexamethasone with close observation.
-
Incentive spirometry encouraged.
Patient is at baseline bedbound.
-
Chest x-ray: 08/15/2023: Persistent bilateral infiltrates. No pleural effusion.
CXR with L mid ovoid infiltrate and patchy RUL infiltrate.
Chest CT s/c 08-11, no baseline available. Multiple bilateral dense infiltrates, small bilateral pleural effusions.
TTE: LVEF 75%, normal DD, normal RV size/function
proBNP elevated on admission.
Status post 1 unit of packed red blood cells.
Despite increased creatinine, I will provide 80 mg of Lasix now.
Last ABG noted: 7. (08/13/2023.)
Avoid sedatives
Repeat ABG as above. Discussed with respiratory therapy.
Mental status has improved
Continue BiPAP as able 20/8 cm of water.
Patient usually on trilogy ventilator at home.
If decompensated despite BiPAP may need intubation.
-
Continue antibiotics to cover for pneumonia. Currently on Zosyn.
Given hypothermia/leukocytosis, will add vancomycin again, will give 1 dose.
MRSA screening negative
All cultures negative.
Foot wound ulcer: Polymicrobial.
Unable to produce sputum
Influenza negative
Covid neg
-
Will continue to follow closely.
No indication for systemic corticosteroids at this point.
If patient intubated then will perform bronchoscopy for sputum sampling, BAL.
-
Worsening renal function.
Diuretics on hold
No significant metabolic acidosis
Consider nephrology evaluation.
-
Echocardiogram 08/09/2023: mild LVH. Ejection fraction 75%. Normal right ventricular size and function. No significant valvular abnormalities.
Diuretics on hold, due to increased creatinine.
Follow electrolytes.
-
Anemia, likely due to renal disease.
Management per primary team.
Status post transfusion 08/14/2023
Good response
-
Chronic R foot decubitus ulcer.
Podiatry following
Does not probe to bone, no tunneling found
ANABELLA normal
Culture gram-negative bacilli/group C streptococcus/
Management per primary team.
-
Needs to follow with pulm after d/c, follows Dr Carter at [facility]
-
Dr. Choi have updated at the bedside throughout the course of the hospital stay.
Respiratory status is tenuous.
May need intubation and mechanical ventilation.
Discussed with primary team
-
Subjective Data
-
Date of Service:
Date of Service: August 15, 2023
Chief Complaint: Pulmonary Follow Up (Bilateral pneumonia/acute on chronic hypoxemic/hypercapnic respiratory failure.)
Subjective:
Increased oxygen requirement
Denies shortness of breath at rest
Not able to produce sputum
Bedbound, not moving much.
Review of Systems
General: Fever (n)
Cardiopulmonary: Dyspnea and Dyspnea on Exertion
GI: Abdominal Pain (n) and Nausea (n)
Objective Data
Data Reviewed
Vital Signs / I&O / Oxygen:
Vital Signs
Temp Pulse Resp BP Pulse Ox
96.6 F L 100 12 160/78 89
08/15/23 04:29 08/15/23 06:00 08/15/23 06:00 08/15/23 06:00 08/15/23 05:48
Intake and Output
08/14/23 08/15/23 08/16/23
06:59 06:59 06:59
Intake Total 1740 / 1740 300 / 300
Output Total 200 / 200
Balance 1540 / 1540 300 / 300
SaO2 89
Nasal Cannula flow liters per 15
minute
Physical Exam
General: Respiratory Distress (none at rest)
HEENT: Normocephalic and Moist Mucous Membranes
Cardiovascular: S1-S2
Respiratory: Wheeze (n) and Crackles
GI: Distended (obese)
Neurology: Awake and Alert
Skin: Warm
Labs/Micro/Reports
Lab Data
08/15/23 05:23
08/15/23 05:23
Microbiology
08/12/23 19:40 Blood/Venous Blood Culture - Preliminary
No Growth in 48 hours- Final report to follow
08/12/23 17:24 Blood/Venous Blood Culture - Preliminary
No Growth in 48 hours- Final report to follow
08/12/23 19:34 Urine Legionella Urinary Antigen - Final
Negative for Legionella pneumophila Serogroup 1 antigen.
A negative result does not rule out the possiblity of
Legionella infection due to other serogroups or species of
Legionella. Clinical correlation is recommended.
08/12/23 19:34 Urine Streptococcus pneumoniae Antigen (M - Final
Negative for Streptococcus pneumoniae antigen.
A negative result does not exclude infection with
Streptococcus pneumoniae. Clinical correlation is
recommended.
08/12/23 17:03 Nasal Swab Influenza Types A & B (JOSE ANTONIO) - Final
Negative for Influenza A & B, NAAT
Negative results must be combined with clinical observations
and patient history.
Nucleic Acid Amplification test (NAAT)performed on the
[employer] platform.
[2023-08-15 09:57] LABS: B.E. -4.6 mmol/L; HCO3 26.4 mmol/L (21-28); O2 Saturation % 92.4 % (94-98); PO2 63 mmHg (83-108)
[2023-08-15 10:04] LABS: PCO2 87 mmHg (32-35); pH 7.09 (7.35-7.45)
--- NOTE | 2023-08-15 10:20 | PHA.VAN.IN ---
Assessment
- Assessment
Renal Function: Unknown baseline (CONSTANCE on presumed CKD)
Concomitant Antimicrobials: piperacillin/tazobactam
- Previous Dosing Experience
Patient previously on vancomycin this admission with the following random levels:
08/09/23 08/10/23
06:05 05:52
Random Vancomycin 19.1 16.8
Received 2000mg initial dose 08/07 16:19
Half-life between 2 levels = 128.5 H (SCR 2 to 2.4 during that time period)
SCR currently increased to 3.3
Plan
- Plan
Initial / Loading Dose: re-load with vanc 2000mg
Maintenance Regimen: dosing by level
Monitorin/25 06
MRSA Screen: Ordered per protocol
Based on prior half-life, level anticipated to be < 10
Pharmacokinetics Vancomycin I
- -
Patient Age: 73
Patient Sex: Female
Vancomycin Day #: 1
Indication: Pulmonary/Respiratory
Requesting Provider: Dr. Choi
Pertinent Antimicrobial Allergies:
NKDA
Height / Weight:
Height 5 ft 6 in
Actual Weight 105.6 kg
Pertinent Past Medical History: BMI ~38, CKD, DM2
- Vital Signs / Lab Results
Temp Pulse Resp BP Pulse Ox
96.6 F L 100 12 160/78 89
08/15/23 04:29 08/15/23 06:00 08/15/23 06:00 08/15/23 06:00 08/15/23 05:48
Lab Results - Hematology
08/13/23 08/14/23 08/15/23
03:31 04:29 05:23
WBC 12.2 H 12.0 H 13.6 H
Lab Results - Chemistry
08/13/23 08/14/23 08/15/23
03:31 04:29 05:23
BUN 79 H 84 H 81 H
Creatinine 3.0 H 3.1 H 3.3 H
Estimated Creat Clear
Albumin 3.2 L
Microbiology Results
08/12/23 19:40 Blood Culture - Preliminary
Blood/Venous No Growth in 48 hours- Final report to follow
08/12/23 17:24 Blood Culture - Preliminary
Blood/Venous No Growth in 48 hours- Final report to follow
08/12/23 19:34 Legionella Urinary Antigen - Final
Urine Negative for Legionella pneumophila Serogroup 1 antigen.
A negative result does not rule out the possiblity of
Legionella infection due to other serogroups or species of
Legionella. Clinical correlation is recommended.
Streptococcus pneumoniae Antigen (M - Final
Negative for Streptococcus pneumoniae antigen.
A negative result does not exclude infection with
Streptococcus pneumoniae. Clinical correlation is
recommended.
[2023-08-15] MEDS: DECADRON 6 MG IV (11:16)
[2023-08-15] MEDS: VANCOCIN 540 MG IV (11:17)
[2023-08-15 12:03] LABS: B.E. -3.8 mmol/L; HCO3 25.9 mmol/L (21-28); O2 Saturation % 94.5 % (94-98); PO2 64 mmHg (83-108)
[2023-08-15 12:13] LABS: PCO2 78 mmHg (32-35); pH 7.13 (7.35-7.45)
[2023-08-15] MEDS: LASIX 80 MG IV (13:46)
--- NOTE | 2023-08-15 15:32 | W.PN.HOSP.TC ---
Today's Communication/Plan
-
iv lasix
bipap
steroids, vanc, zosyn
pulm status tenous
Assessment / Plan
Assessment / Plan
TTE
Mild concentric left ventricular hypertrophy. Normal regional wall motion. Left ventricular ejection fraction is 75% by Pham's method.
Normal diastolic function. Normal right ventricular size and function. Trace mitral regurgitation.
Aortic sclerosis without stenosis. Mild tricuspid regurgitation.
Estimated pulmonary artery pressure of 37 mmHg, assuming a right atrial pressure of 3 mmHg. Normal pericardium without effusion.
The IVC is of normal size and demonstrates normal respiratory variation.
NO prior available for comparison
CT right foot
Findings suggesting moderate cellulitis of the dorsal right foot. No focal fluid collection to suggest abscess . Limited exam without IV contrast.
LE arterial doppler
1. Noncompressible arteries bilaterally, suggestive of medial calcinosis and/or arterial noncompliance, which makes measured ankle-brachial indices unreliable. Toe brachial indices are considered more reliable in this situation.
2. Right toe brachial index 1.03 (normal greater than 0.7). No focal arterial stenosis demonstrated. Spectral Doppler waveforms are normal to the level of ankle.
3. Left toe brachial index 1.23. No focal arterial stenosis demonstrated. Spectral Doppler waveforms are normal to the level of ankle.

# Acute on chronic hypoxic and hypercapneic respiratory failure
#B/l Pneumonia
--Patient usually on 3 to oxygen through nasal cannula at home 13/11. now on 15L
-No evidence of fluid overload on imaging, proBNP unreliable as CONSTANCE on CKD; may be component of PAH versus acute HFpEF
-Stop lasix due to rising Scr
-Zosyn, add vanco
-Start IV steroids
-F/u cultures if expectorating
- Incentive [place]
-appreciate pulm consult
-80 iv lasix today
-Cont BiPAP for today
-EF 75%;
Echocardiogram report as above
#CONSTANCE on Presumed CKD stage IIIb
-stop lasix
-Gentle fluid if CT chest unremarkable
-Patient was admitted taken off of Lasix due to worsening renal function by primary injection molder 3 wks back. Patient was apparently on p.o. Lasix 40 g twice daily before.
-Bladder scan and straight cath protocol ordered
-stop ivf
-Lasix trial today
� Mostly in ATN, if no evidence of any improvement by tomorrow, consult nephrology
#Hypernatremia
-2/2 to overdiuresis
-hold lasix
-ctm
#Anemia
� Chronic
� Does not appear to be actively bleeding
� Transfuse 1 unit PRBC 08/13
� Continue to trend CBC
� Iron saturation within normal limits, ferritin elevated
- I suspect this is due to chronic illness
#Right foot chronic decubitus wound
-Ongoing for 2.5 yrs. Patient gets wound care at home by VN. Have been seen by podiatry in the past as well
-Infected foul-smelling purulent drainage on exam in ER
-Superficial Wound culture growing gram neg bacilli, group c streptococcus
-Lower extremity ANABELLA report as above
-CT left foot/xr did not show osteo. no abscess.
-Podiatry evaluated. continue local wound care.
-wound looks dry with healthy granulation tissue. to complete abx course today 08/13 although now on zosyn
#history of A-fib
h/o of LLE DVT
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
-can not get CT Chest PE with renal function and V/q due to pulm edema
-dvt study negative this admit
#Essential hypertension
-Continue Norvasc/metoprolol with holding parameters. Hold valsartan
#FREDY
-cont bipap
-Trelegy at home
morbid obesity
bedbound
recovered type 2 diabetes - A1c 5.1
depression
GERD
DVT PPX - heparin subq
DNR/DNI
Total time spent on today's encounter was 60 minutes which included time spent in counseling the patient/family regarding diagnosis and treatment plan as listed above, goals of care, and symptom management. Case was discussed with nursing staff,
specialists, and care coordinators/case management. All labs and imaging personally reviewed by me. Remainder the time spent in detailed review of previous records, lab data, imaging, and other medical provider documentation.
Anticipated Discharge: > 48 hours
Subjective/Interval History
-
Date of Service: August 15, 2023
Requiring additional oxygen today
Objective Data
-
Labs:
Laboratory Results
08/15/23 08/15/23 08/15/23
05:23 09:44 11:53
WBC 13.6 H
Hgb 8.1 L D
Hct 27.0 L
Plt Count 213
HCO3 26.4 25.9
Sodium 145
Potassium 3.9
Chloride 108 H
Carbon Dioxide 25
BUN 81 H
Creatinine 3.3 H
Glucose 109 H
Calcium 9.3
Total Bilirubin 0.7
AST 22
ALT 13
Alkaline Phosphatase 74
Vital Signs:
Vital Signs
Temp Pulse Resp BP Pulse Ox
96.3 F L 55 18 121/57 94
08/15/23 11:35 08/15/23 12:00 08/15/23 12:00 08/15/23 12:00 08/15/23 13:00
I&O
08/14/23 08/15/23 08/16/23
06:59 06:59 06:59
Intake Total 1740 / 1740 300 / 300
Output Total 200 / 200
Balance 1540 / 1540 300 / 300
Review of Systems
-
History Source: Patient
All other systems: Not reviewed unless documented
Physical Exam
-
General: No Apparent Distress, Comfortable and Morbidly Obese
HEENT: Oxygen (15L NC)
Respiratory: Rales (mild although distant)
Cardiac: Regular Rhythm and S1/S2; Negative Murmur or Rub
GI: Soft, Nontender and Nondistended
Musculoskeletal: No Edema
Neuro: Awake, Alert, Oriented, No Motor Deficits and Nonfocal/Grossly Intact
Psych: Calm
Data Reviewed
-
Diagnostic Radiology: Image personally visualized and interpreted and Report Reviewed by me
Labs: Labs Reviewed by me
--- NOTE | 2023-08-15 16:52 | W.PN.UPDATE ---
Update Note
Progress Note Update
Significant decompensated hypercapnia.
Mental status improved with BiPAP settings.
Continue current BiPAP without change.
Patient noted is DNR.
Avoid sedatives
She is also bradycardic, discontinue metoprolol.
Her TSH is normal.
High risk intubation
[2023-08-15] MEDS: DECADRON 4 MG IV ×2 (17:15→23:37)
--- NOTE | 2023-08-15 19:16 | PTCARENOTE ---
day shift note. assumed care of pt this am. pt at that time on 15 liters nasal cannulla with nonrebreather wtih sats in mid 80s. pt dyspneic with wet breath sounds. hospitalist made aware. pt placed back on bipap and settings adjusted by RT. chest x
ray done per order. renal/bladder ultrasound done at bedside as pt has no urine output and elevated creatinine. seen by dr Patel and abgs done per order. pulm aware of results. pt left on bippap and second set of abgs slightly improved. sats on
current bipap 93 to 96 %. pt opens eyesand answers appropriately. she reports feeling better since going back on bipap. iv lasix given per order, so far no urine output. rported to oncoming RN. pts at bedside most of day and spoke with pulm
and hospitalist.
[2023-08-15] MEDS: LIPITOR PO ×2 (20:54→22:23)
--- NOTE | 2023-08-15 23:33 | PTCARENOTE ---
Pt refusing turns, refusing hygiene. Pt on bipap 20/8 @ 15L O2 sat 88%, lungs diminished, pt O2 quickly drops when bipap removed. Wound care provided for R foot wound. Pt unable to take PO medication. Pt is laying in bed with call green in reach.
[2023-08-16] VITALS (21 sets, daily range): BP systolic 113–174; BP diastolic 51–89; PULSE 2–107; BMI 37.6
[2023-08-16 04:30] LABS: Hematocrit 23.9 % (37.0-47.0); Hemoglobin 7.2 g/dL (12.0-16.0); Mean Corp Hgb Conc. 30.1 g/dL (33.0-37.0); Mean Corpuscular Hgb 29.3 pg (27.0-31.0); Mean Corpuscular Volume 97.2 fL (81.0-99.0); Mean Platelet Volume 10.1 fL (7.4-10.4); Platelet Count 179 10^3/uL (130-400); Red Blood Cell Count 2.46 10^6/uL (4.20-5.40); White Blood Cell Count 10.2 10^3/uL (4.8-10.8)
[2023-08-16 04:57] LABS: ALT (SGPT) 12 U/L (0-35); AST (SGOT) 21 U/L (14-36); Albumin 3.1 g/dl (3.5-5.0); Alkaline Phosphatase 69 U/L (38-126); Blood Urea Nitrogen 85 mg/dl (7-17); Calcium 9.1 mg/dl (8.4-10.2); Carbon Dioxide 23 mmol/L (22-30); Chloride 109 mmol/L (98-107); Estimated Creatinine Clearance 15 ml/min; Glucose 133 mg/dl (70-99); Magnesium 1.9 mg/dl (1.6-2.3); Potassium 3.9 mmol/L (3.5-5.1); Sodium 145 mmol/L (135-145); Total Bilirubin 0.7 mg/dl (0.2-1.3); Total Protein 5.7 g/dl (6.3-8.2); eGFR 10.76
[2023-08-16 04:58] LABS: Vancomycin Random 29.3 ug/ml
--- NOTE | 2023-08-16 05:59 | W.PN.UPDATE ---
Update Note
Progress Note Update
Cr level trended to 4.2 this am from 3.3, no urine out per the nursing staff, bladder scan is 78ml. Nephrology consult was placed as recommended in the note.
[2023-08-16] MEDS: DECADRON 4 MG IV ×2 (07:52→17:07)
[2023-08-16] MEDS: FEOSOL 325 MG PO (07:52)
[2023-08-16] MEDS: HEPARIN 5000 UNITS SC ×2 (07:52→21:50)
[2023-08-16] MEDS: NORVASC 5 MG PO (07:53)
[2023-08-16] MEDS: VITAMIN C 250 MG PO (07:54)
[2023-08-16] MEDS: PROTONIX 40 MG PO (07:54)
[2023-08-16] MEDS: VITAMIN D3 (cholecalciferol) 50 MCG PO (07:55)
[2023-08-16] MEDS: ZOLOFT 50 MG PO (07:55)
--- NOTE | 2023-08-16 07:58 | PHA.VAN.FU ---
Vancomycin Assessment / Plan
- Assessment
Renal Function: SCR Increasing
WBC's are: WNL
Concomitant Antimicrobials: piperacillin/tazobactam
- Assessment - Therapeutic Drug Monitoring
Random Level: 29.3 - drawn ~17H after 2g loading dose
- Dosing Plan
Dosing by Level: Hold off on dosing today
- Monitoring Plan
Random Level: 08/16 0600 to trend level
- Follow Up
Pharmacy will continue to follow.
Vancomycin Follow UP
- -
Patient Age: 73
Patient Sex: Female
Vancomycin Day #: 2
Indication: Pulmonary/Respiratory
Requesting Provider: Dr. Choi
Pertinent Antimicrobial Allergies:
NKDA
Height / Weight:
Height 5 ft 6 in
Actual Weight 105.5 kg
Pertinent Past Medical History: BMI ~38, CKD, DM2
- Vital Signs / Lab Results
Temp Pulse Resp BP Pulse Ox
97.7 F 71 17 143/54 98
08/16/23 07:28 08/16/23 06:00 08/16/23 06:00 08/16/23 06:00 08/16/23 06:00
Lab Results - Hematology
08/14/23 08/15/23 08/16/23
04:29 05:23 04:20
WBC 12.0 H 13.6 H 10.2
Lab Results - Chemistry
08/14/23 08/15/23 08/16/23
04:29 05:23 04:20
BUN 84 H 81 H 85 H
Creatinine 3.1 H 3.3 H 4.2 H*
Estimated Creat Clear 20 19 15
Albumin 3.2 L 3.1 L
Microbiology Results
08/12/23 19:40 Blood Culture - Preliminary
Blood/Venous No Growth in 72 hours- Final report to follow
08/12/23 17:24 Blood Culture - Preliminary
Blood/Venous No Growth in 72 hours- Final report to follow
08/15/23 11:56 Nasal Screen MRSA (PCR) - Final
Nose MRSA not detected - performed by PCR methodology.
Therapeutic Drug Monitoring
Random Vancomycin 29.3 ug/ml 08/16/23 04:20
[2023-08-16] MEDS: ZOSYN 50 IV ×2 (08:03→17:08)
--- NOTE | 2023-08-16 09:12 | W.CON.NEPH ---
Consultation
-
Date/Time Consultation Requested: 08/16/2023 7:00 AM
Date/Time Consultation Performed: 08/16/2023 915 am
Requesting Provider: nilda
Performing Provider: Dr. Christianson
Reason for Consultation: Acute kidney injury
Medical History
-
Chief Complaint: Acute kidney injury
History of Present Illness:
The patient is a 73-year-old female with a past medical history of hypertension maintained on amlodipine , valsartan ,and metoprolol therapy. She is maintained on chronic statin therapy in the setting of her dyslipidemia and sertraline for her
depression. She has established chronic kidney disease stage IIIb and maintains a baseline creatinine of 2 as of 08/08/2023. She has a history of chronic hypoxic respiratory failure on 3 L oxygen nasal cannula, history of A-fib not on
anticoagulation due to hemorrhagic CVA, morbid obesity, bedbound, recovered type 2 diabetes, essential hypertension, depression, GERD, chronic right foot decubitus wound, history of left leg DVT, FREDY on CPAP was brought into ER by family after
patient was noted to be more hypoxic and short of breath over the past few days on 08/08/2019. The patient usually uses 3 L oxygen through nasal cannula due to shortness of breath patient requiring 6 L oxygen in ER. No productive cough or fever
reported. Patient unsure about worsening leg swelling. Patient apparently have worsening renal function for some time and patient Lasix was discontinued by fire protection engineering technician. Patient see fire protection engineering technician in [place], [place] but does not know the name. Patient
also have a driving instructor who according to patient visits at her home. She has a history of a left leg DVT for which patient was started on Coumadin, patient ended up having hemorrhagic CVA from that. Patient does not have any significant residual
focal neurological deficit. Patient in general has been weak and been working with physical therapy but remains bedbound and required Jason lift for transfer.
Patient have right foot chronic wound which has been taken care of by wound care nurse. On exam in ER foul-smelling drainage although per patient this is better than in past. Patient have been seen by podiatry in the past as well. Over the course
of her admission her creatinine is now risen from 2 up to 4.3 and nephrology was consulted for her CONSTANCE and decreased uop.
Past Medical History
Heart failurem, CKD stage IIIb, chronic hypoxic respiratory failure on 3 L oxygen nasal cannula, history of A-fib not on anticoagulation due to hemorrhagic CVA, morbid obesity, bedbound, recovered type 2 diabetes, essential hypertension, depression,
GERD, chronic right foot decubitus wound, history of left leg DVT, FREDY on CPAP
Social History
Tobacco: Non-Smoker
Alcohol: None
Family History
No CKD
Allergies / Home Medications
Allergy/AdvReac Type Severity Reaction Status Date / Time
No Known Allergies Allergy Unverified 08/08/23 12:44
�Medication �Instructions �Recorded �Confirmed �Type
Sudafed 2 tab PO DAILYPRN PRN congestion 08/08/23 08/08/23 History
amlodipine 5 mg tablet 5 mg PO DAILY Blood Pressure 08/08/23 08/08/23 History
ascorbic acid (vitamin C) 250 mg 250 mg PO DAILY Supplement 08/08/23 08/08/23 History
tablet (Vitamin C)
atorvastatin 40 mg tablet 40 mg PO HS High Cholesterol 08/08/23 08/08/23 History
cholecalciferol (vitamin D3) 50 50 mcg PO DAILY Supplement 08/08/23 08/08/23 History
mcg (2,000 unit) tablet
ferrous sulfate 325 mg (65 mg 325 mg PO DAILY Supplement 08/08/23 08/08/23 History
iron) tablet (iron)
metoprolol succinate 100 mg 100 mg PO DAILY Blood Pressure 08/08/23 08/08/23 History
tablet,extended release 24 hr
nystatin 100,000 unit/gram topical 1 applic topical [id number] PRN b/l 08/08/23 08/09/23 History
powder legs
pantoprazole 40 mg tablet,delayed 40 mg PO DAILY Gastrointestinal 08/08/23 08/08/23 History
release Issue
sertraline 50 mg tablet 50 mg PO DAILY Depression 08/08/23 08/08/23 History
valsartan 160 mg tablet 160 mg PO DAILY Blood Pressure 08/08/23 08/08/23 History
zinc 50 mg tablet 50 mg PO DAILY Supplement 08/08/23 08/08/23 History
Review of Systems
-
History Source: Patient
All other systems: Negative unless noted
Constitutional: Weight Gain and Fatigue
EENT: No Symptoms
Respiratory: Cough and Trouble Breathing
Abdomen/GI: No Symptoms
: Other (Decreased urine output)
Musculoskeletal: Other (leg pain)
Skin: Other (Right foot wound)
Neurological: No Symptoms
Endocrine: No Symptoms
Hematologic/Lymphatic: No Symptoms
Physical Exam
Vital Signs
Vital Signs
Temp Pulse Resp BP Pulse Ox
97.7 F 78 17 149/59 91
08/16/23 07:28 08/16/23 07:53 08/16/23 06:00 08/16/23 07:53 08/16/23 08:08
Lab Results
08/16/23 04:20
08/16/23 04:20
WBC 10.2 10^3/uL (4.8-10.8) 08/16/23 04:20
RBC 2.46 10^6/uL (4.20-5.40) L 08/16/23 04:20
Hgb 7.2 g/dL (12.0-16.0) L 08/16/23 04:20
Hct 23.9 % (37.0-47.0) L 08/16/23 04:20
Plt Count 179 10^3/uL (130-400) 08/16/23 04:20
Sodium 145 mmol/L (135-145) 08/16/23 04:20
Potassium 3.9 mmol/L (3.5-5.1) 08/16/23 04:20
Chloride 109 mmol/L (98-107) H 08/16/23 04:20
Carbon Dioxide 23 mmol/L (22-30) 08/16/23 04:20
BUN 85 mg/dl (7-17) H 08/16/23 04:20
Creatinine 4.2 mg/dL (0.6-1.0) H* 08/16/23 04:20
eGFR 10.76 08/16/23 04:20
Glucose 133 mg/dl (70-99) H 08/16/23 04:20
Calcium 9.1 mg/dl (8.4-10.2) 08/16/23 04:20
Hdt-U-Rhkbljwusse Pept 35216 pg/ml 08/12/23 04:30
Albumin 3.1 g/dl (3.5-5.0) L 08/16/23 04:20
Physical Exam
General: AOx3, Lethargic Moderate Respiratory Distress, grossly obese
HEENT: PERRL, EOMI, Anicteric, Conjunctivae Clear, Ear/Nose Intact, Hearing Normal, Oropharynx Clear/Moist, Dentition Intact, Facial Symmetry, Neck Supple, Neck: Trachea Midline, No JVD and No Thyromegaly, no Bruits
Respiratory: coarse breaths sounds decreased to the bases
Cardiac: S1/S2 and Regular Rate/Rhythm tachy
Breast: Deferred by me
Abdomen: Soft, Nontender, Nondistended, Normal Bowel Sounds and No Hepatosplenomegaly
Rectal: Deferred by Provider
Genito-urinary: No Costovertebral Tenderness
Extremities: No Clubbing, No Cyanosis and No Edema
Skin: No Rash or open lesions
Neuro: Nonfocal/Grossly Intact, CN II-XII (Intact) and Strength (Musculoskeletal exam 3/5 both upper and lower extremities)
Hematologic/Lymphatic: No Cervical Lymphadenopathy, No Submandibular Lymphadenopathy and No Supraclavicular Lymphadenopathy
Psych: Mood/afflect flat Insight/judgement good and Appropriate
Vascular: plus poor pedal and radial pulses, Left upper extremity edema
Data Reviewed
-
Radiology: Image Personally Visualized and interpreted (Chest x-ray notes bilateral interstitial edema and opacities) and Report Reviewed by me (Renal ultrasound without obstructive phenomenon noted unilateral renal atrophy)
Medical Tests (Nuc Med, Echo etc): Other (EKG report reviewed 08/12/2023 sinus rhythm 86 beats per)
Labs: Labs Reviewed by me
Old Records: Requested (Reviewed creatinine level from May 2022 creatinine 3)
Assessment/Plan
-
Impression:
Bilateral
Acute kidney injury
CKD stage IV (3.0) on 06/16
Diabetes
Chronic Right foot wound (wound culture notes GNB/ group c strep)
Hypertension
Acidemia :acute on chronic chronic hypoxic respiratory failure/metabolic acidosis
Atrial fibrillation
History of hemorrhagic CVA
History of left leg DVT
Morbid obesity
Obstructive sleep apnea on CPAP
Hypercapnic respiratory
Anemia
Plan:
CONSTANCE:
-Renal ultrasound without obstruction or acute findings some associated right renal atrophy noted
-Check urine eosinophils for possible acute interstitial nephritis secondary to antibiotic administration: vanco and or Zosyn
-Multiple CAT scans were performed but without IV contrast
-Patient was diuresed since admission but without significant hemodynamic compromise or reduction in weight
-check FeNa, UA
-Place Red due to worsening renal failure and anuria
-Will provide 100 mg of IV lasix
-Long discussion with both and given patient's DNR and DNI status in the setting of advanced renal disease dialysis would not be offered as patient would never want long-term dialysis in a jail facility
-
[2023-08-16] MEDS: TYLENOL 650 MG PO (09:36)
--- NOTE | 2023-08-16 10:42 | PTCARENOTE ---
Patient was on 15 liters mid flow for breakfast this morning, pulse ox 91%. At 1022 while patient was being cleaned, pulse ox dropped to the 70s. Respiratory placed patient back on bipap however pulse ox continues to be in the 80s. at
bedside talking to physicians at this time.
--- NOTE | 2023-08-16 10:52 | W.PN.PUL3 ---
Today's Communication / Plan
-
Continue BiPAP therapy
Morphine if increased work of breathing
IV steroids
IV antibiotics
Diuretics as able
Head of the bed elevation
Poor prognosis
Assessment
-
Assessment:
Mrs Anahi Long is a 73/W adm 08-07 with 2-3 d h/o worsening dyspnea in setting of chronic hypoxic resp failure on home O2 at 3L and multiple comorbidities. At ER, POx 87% on O2 2L, deemed in ac/chronic HF, started on diuretic. Reportedly partial
use and sometimes refusal of BPAP as inpatient. Increasing O2 requirement from chronic baseline 3 L, ABG with respiratory acidosis and hypoxemia on O2 15L, resumed BPAP (currently at 14/6 c 10L O2), diuretic discontinued, atbs changed to zosyn (on
atbs since adm with interim changes as mentioned below), transferred to IMU, pulm consulted.
First DH adm
Impression:
Acute on chronic hypoxemia/hypercarbia requiring noninvasive mechanical ventilation.
On home ventilator trilogy for last 1.5 y
Acute hypercarbia, respiratory acidosis
Bilateral pneumonia
No baseline CXR or CTs for comparison
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
Anemia, severe. Unknown baseline
A/CKD SENIOR EMBEDDED SOFTWARE ENGINEER, off furosemide by outpatient nephrology 3 wks SENIOR EMBEDDED SOFTWARE ENGINEER
MRSA negative
Elevated D-dimer (likely due to severe infection, kidney disease)
Elevated BNP
Normal troponin
Normal TSH
Conditions SENIOR EMBEDDED SOFTWARE ENGINEER:
Chronic hypoxemia/hypercarbia, on home ventilator trilogy for last 1.[address] Carter at [facility]
HFpEF
CKD stage IIIb
AFib not on AC due to hemorrhagic CVA late 2021 (warfarin initiated for LLE DVT but d/c upon CVA)
LLE DVT
FREDY/OHS on trilogy and O2 3.5-4L for last 1.5 y, reports partial compliance with 4-5 h use max for last 6 m
Pneumonia, Feb 2021, Jan 2022, adm to [facility]
HTN
GERD
Chronic R foot decubitus ulcer
Bedbound state
Depression
Morbid obesity
Non-smoker
DNR
Plan:
Transferred to IMU 08-11 due to increasing O2 requirements
Unfortunately, condition has deteriorated overnight. BiPAP dependent, persistently hypoxemic despite 100% FiO2 and high intensity BiPAP.
Worsening renal function, anuric.
Mixed acid-base disorder: Metabolic/respiratory acidosis and metabolic alkalosis.
-
CT chest suggestive of bilateral pneumonia. Does have small bilateral pleural effusion-heart failure component also possible.
Chest x-ray 08/15/2023: Reviewed persistent bilateral infiltrate-stable compared to yesterday. No significant pleural effusion per
-
ABG: Persistent decompensated acute on chronic hypercapnic respiratory failure despite high intensity BiPAP.
Currently 20/10.
Pulse ox remains in the low 80s.
Currently alert, following commands. Respiratory distress at rest.
-
Has already mask leaking with current pressures. Unable to titrate further.
Continue with backup pressure of 14
No further ABGs will be performed.
Discussed with at the bedside 08/16/2023: DNR status.
Explained that without intubation will be difficult for her to continue with care for long.
He is okay to provide morphine if necessary.
Continue with current care and focus on comfort.
-
Cannot rule out noninfectious etiology. Cryptogenic pneumonia/DAH/etc.
Given worsening hypoxemia, poor air movement, will started IV dexamethasone 08/16/2023. Continue without change.
-
Patient is at baseline bedbound.
-
Chest x-ray: 08/15/2023: Persistent bilateral infiltrates. No pleural effusion.
CXR with L mid ovoid infiltrate and patchy RUL infiltrate.
Chest CT s/c 08-11, no baseline available. Multiple bilateral dense infiltrates, small bilateral pleural effusions.
TTE: LVEF 75%, normal DD, normal RV size/function
proBNP elevated on admission.
Status post 1 unit of packed red blood cells.
Patient has not responded to Lasix. She is anuric.
Nephrology consulted.
Case discussed.
Patient not a candidate for dialysis.
Attempt diuresis. Supportive care.
Discussed with .
-
Continue antibiotics to cover for pneumonia. Currently on Zosyn.
Given hypothermia/leukocytosis, vancomycin restarted 08/15/2023. Discussed with pharmacy.
MRSA screening negative
All cultures negative.
Foot wound ulcer: Polymicrobial.
Unable to produce sputum
Influenza negative
Covid neg
-
Echocardiogram 08/09/2023: mild LVH. Ejection fraction 75%. Normal right ventricular size and function. No significant valvular abnormalities.
Diuretics as able.
Unfortunately anuric. Worsening renal function.
Follow electrolytes.
-
Anemia, likely due to renal disease.
Management per primary team.
Status post transfusion 08/14/2023
Good response
-
Chronic R foot decubitus ulcer.
Podiatry following
Does not probe to bone, no tunneling found
ANABELLA normal
Culture gram-negative bacilli/group C streptococcus/
Management per primary team.
-
Needs to follow with pulm after d/c, follows Dr Carter at [place] [facility]
-
Case discussed with nephrology and primary team 08/16/2023.
updated at the bedside 08/16/2023, poor prognosis. He would like to continue with medical care for now, okay with morphine if patient has increased work of breathing.
Discussed with patient as well.
-
High risk situation.
Subjective Data
-
Date of Service:
Date of Service: August 16, 2023
Chief Complaint: Pulmonary Follow Up (Bilateral pneumonia/acute on chronic hypoxemic/hypercapnic respiratory failure.)
Subjective:
Currently on BiPAP
Reports shortness of breath.
Denies abdominal discomfort
Denies nausea or vomiting.
Condition has deteriorated.
Review of Systems
Cardiopulmonary: Dyspnea, Dyspnea on Exertion and Chest Pain (n)
GI: Abdominal Pain (n) and Nausea (n)
Objective Data
Data Reviewed
Vital Signs / I&O / Oxygen:
Vital Signs
Temp Pulse Resp BP Pulse Ox
97.7 F 115 26 163/51 71
08/16/23 07:28 08/16/23 10:22 08/16/23 10:22 08/16/23 10:22 08/16/23 10:22
Intake and Output
08/15/23 08/16/23 08/17/23
06:59 06:59 06:59
Intake Total 300 / 300 100 / 100 100 / 100
Balance 300 / 300 100 / 100 100 / 100
SaO2 71
Nasal Cannula flow liters per 15
minute
Physical Exam
General: Respiratory Distress (none at rest)
HEENT: Normocephalic and Moist Mucous Membranes
Cardiovascular: S1-S2
Respiratory: Wheeze (n) and Crackles
GI: Distended (obese)
Neurology: Awake and Alert
Skin: Warm
Labs/Micro/Reports
Lab Data
08/16/23 04:20
08/16/23 04:20
Laboratory Results
08/15/23
11:53
pH 7.13 L*
pCO2 78 H*
pO2 64 L
HCO3 25.9
O2 Delivery Level
Microbiology
08/12/23 19:40 Blood/Venous Blood Culture - Preliminary
No Growth in 72 hours- Final report to follow
08/12/23 17:24 Blood/Venous Blood Culture - Preliminary
No Growth in 72 hours- Final report to follow
08/15/23 11:56 Nose Nasal Screen MRSA (PCR) - Final
MRSA not detected - performed by PCR methodology.
08/12/23 19:34 Urine Legionella Urinary Antigen - Final
Negative for Legionella pneumophila Serogroup 1 antigen.
A negative result does not rule out the possiblity of
Legionella infection due to other serogroups or species of
Legionella. Clinical correlation is recommended.
08/12/23 19:34 Urine Streptococcus pneumoniae Antigen (M - Final
Negative for Streptococcus pneumoniae antigen.
A negative result does not exclude infection with
Streptococcus pneumoniae. Clinical correlation is
recommended.
[2023-08-16] MEDS: LASIX 100 MG IV (10:57)
--- NOTE | 2023-08-16 12:05 | W.PN.UPDATE ---
Update Note
Progress Note Update
Unfortunately, patient has increased work of breathing.
Appears uncomfortable.
Will give low-dose morphine for to decrease work of breathing.
I have discussed this with and he was agreeable.
Patient is DNR. He would not want heroic interventions.
[2023-08-16] MEDS: MORPHINE SULFATE 1 MG IV ×3 (12:51→21:45)
--- NOTE | 2023-08-16 13:31 | PTCARENOTE ---
RN and Hospitalist discussed plan of care with patients , Km. Patient has been hypoxic today , maxed out on Bipap settings. Patient is a DNR/DNI and all options discussed with . Patient pulse ox is in the 80s at after being
repositioned this morning. wants to continue bipap today and will make comfort care decisions tomorrow. Patient was given Morphine 1 mg for tachypnea. Attempts to insert bonilla catheter were unsuccessful. Bladder scan only showing 21ml of
urine, due to incontinence unable to assess urine output. Patient has yellow drainage coming from luis, Dr. Zamora aware. Patient has a poor appetite only ate a yogurt this morning, unable to eat due to bipap in use. Bedrest at this time.
--- NOTE | 2023-08-16 13:50 | PTCARENOTE ---
Patient back from [facility] this morning. Denying pain when asked, eating lunch in bed with at bedside. Patient is for transfer to room 319 bed 2. Report given to Shasta BAZZI. Patient educated about plan if care. Belongings to be sent with patient.
--- NOTE | 2023-08-16 14:44 | W.PN.HOSP.TC ---
Addendum entered and electronically signed by Red Zamora MD 08/17/23 08:31:
comfort within the next day*
Original Note:
Today's Communication/Plan
-
IV Lasix, monitor urine output
Urine sent.
IV antibiotics
IV steroids
NIV
No aggressive measures as per family/
Morphine PRN
May opt for comfort care within next week for hours if no improvement as per
Assessment / Plan
Assessment / Plan
TTE
Mild concentric left ventricular hypertrophy. Normal regional wall motion. Left ventricular ejection fraction is 75% by Pham's method.
Normal diastolic function. Normal right ventricular size and function. Trace mitral regurgitation.
Aortic sclerosis without stenosis. Mild tricuspid regurgitation.
Estimated pulmonary artery pressure of 37 mmHg, assuming a right atrial pressure of 3 mmHg. Normal pericardium without effusion.
The IVC is of normal size and demonstrates normal respiratory variation.
NO prior available for comparison
CT right foot
Findings suggesting moderate cellulitis of the dorsal right foot. No focal fluid collection to suggest abscess . Limited exam without IV contrast.
LE arterial doppler
1. Noncompressible arteries bilaterally, suggestive of medial calcinosis and/or arterial noncompliance, which makes measured ankle-brachial indices unreliable. Toe brachial indices are considered more reliable in this situation.
2. Right toe brachial index 1.03 (normal greater than 0.7). No focal arterial stenosis demonstrated. Spectral Doppler waveforms are normal to the level of ankle.
3. Left toe brachial index 1.23. No focal arterial stenosis demonstrated. Spectral Doppler waveforms are normal to the level of ankle.

# Acute on chronic hypoxic and hypercapneic respiratory failure
#B/l Pneumonia
--Patient usually on 3 to oxygen through nasal cannula at home 13/11. now on 15L
-No evidence of fluid overload on imaging, proBNP unreliable as CONSTANCE on CKD; may be component of PAH versus acute HFpEF
-Stop lasix due to rising Scr
-Zosyn, add vanco
-Start IV steroids
-F/u cultures if expectorating
- Incentive [place]
-appreciate pulm consult
-Trial 1 mg IV Lasix
-Cont BiPAP for today
-EF 75%;
Echocardiogram report as above
#CONSTANCE on Presumed CKD stage IIIb
-stop lasix
-Gentle fluid if CT chest unremarkable
-Patient was admitted taken off of Lasix due to worsening renal function by primary nuisance wildlife specialist 3 wks back. Patient was apparently on p.o. Lasix 40 g twice daily before.
-Bladder scan and straight cath protocol ordered
-stop ivf
-Lasix trial again today
� Nephrology consulted
� Mostly in ATN
� Renal ultrasound without obstruction or acute findings
� Nursing staff could not place Red, difficult
� Check urine eosinophils
#Hypernatremia
-2/2 to overdiuresis
-hold lasix
-ctm
#Anemia
� Chronic
� Does not appear to be actively bleeding
� Transfuse 1 unit PRBC 08/13
� Continue to trend CBC
� Iron saturation within normal limits, ferritin elevated
- I suspect this is due to chronic illness
#Right foot chronic decubitus wound
-Ongoing for 2.5 yrs. Patient gets wound care at home by VN. Have been seen by podiatry in the past as well
-Infected foul-smelling purulent drainage on exam in ER
-Superficial Wound culture growing gram neg bacilli, group c streptococcus
-Lower extremity ANABELLA report as above
-CT left foot/xr did not show osteo. no abscess.
-Podiatry evaluated. continue local wound care.
-wound looks dry with healthy granulation tissue. to complete abx course today 08/13 although now on zosyn
#history of A-fib
h/o of LLE DVT
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
-can not get CT Chest PE with renal function and V/q due to pulm edema
-dvt study negative this admit
#Essential hypertension
-Continue Norvasc/metoprolol with holding parameters. Hold valsartan
#FREDY
-cont bipap
-Trelegy at home
morbid obesity
bedbound
recovered type 2 diabetes - A1c 5.1
depression
GERD
DVT PPX - heparin subq
DNR/DNI
08/15: Had extensive discussion with . Opting to continue care although understands possible clinical course and may opt for comfort care within next 24 hours. Patient understands that patient is very critical, removing BiPAP will accelerate
patient's . Speaking to him, it is clear that patient most likely will opt for comfort if no improvement soon.
Total time spent on today's encounter was 62 minutes which included time spent in counseling the patient/family regarding diagnosis and treatment plan as listed above, goals of care, and symptom management. Case was discussed with nursing staff,
specialists, and care coordinators/case management. All labs and imaging personally reviewed by me. Remainder the time spent in detailed review of previous records, lab data, imaging, and other medical provider documentation.
Anticipated Discharge: > 48 hours
Subjective/Interval History
-
Date of Service: August 16, 2023
worsening hypoxia
Objective Data
-
Labs:
Laboratory Results
08/16/23
04:20
WBC 10.2
Hgb 7.2 L
Hct 23.9 L
Plt Count 179
Sodium 145
Potassium 3.9
Chloride 109 H
Carbon Dioxide 23
BUN 85 H
Creatinine 4.2 H*
Glucose 133 H
Calcium 9.1
Total Bilirubin 0.7
AST 21
ALT 12
Alkaline Phosphatase 69
Vital Signs:
Vital Signs
Temp Pulse Resp BP Pulse Ox
97.4 F 102 27 140/77 94
08/16/23 11:00 08/16/23 12:00 08/16/23 12:00 08/16/23 12:00 08/16/23 13:39
I&O
08/15/23 08/16/23 08/17/23
06:59 06:59 06:59
Intake Total 300 / 300 100 / 100 100 / 100
Balance 300 / 300 100 / 100 100 / 100
Review of Systems
-
History Source: Patient
All other systems: Not reviewed unless documented
Physical Exam
-
General: No Apparent Distress, Comfortable and Morbidly Obese
HEENT: Oxygen (bipap)
Respiratory: Rales (mild although distant)
Cardiac: Regular Rhythm and S1/S2; Negative Murmur or Rub
GI: Soft, Nontender and Nondistended
Musculoskeletal: No Edema
Neuro: Awake, Alert, Oriented, No Motor Deficits and Nonfocal/Grossly Intact
Psych: Calm
Data Reviewed
-
Diagnostic Radiology: Image personally visualized and interpreted and Report Reviewed by me
Labs: Labs Reviewed by me
--- NOTE | 2023-08-16 15:07 | PTCARENOTE ---
Patients heart rate has converted to afib 60-110. EKG completed, notified Dr. Zamora. Patient is stating that she feels much better when asked at this time.
[2023-08-16 15:25] LABS: Complement C3 107 mg/dl (88-165)
[2023-08-16] MEDS: LIPITOR PO (22:35)
[2023-08-17] VITALS (19 sets, daily range): BP systolic 82–160; BP diastolic 53–86; PULSE 2–88
[2023-08-17] MEDS: ZOSYN 50 IV ×3 (00:27→17:22)
[2023-08-17] MEDS: DECADRON 4 MG IV ×3 (00:27→17:21)
[2023-08-17 05:35] LABS: Mean Corp Hgb Conc. 30.4 g/dL (33.0-37.0); Mean Corpuscular Hgb 28.8 pg (27.0-31.0); Mean Corpuscular Volume 94.7 fL (81.0-99.0); Mean Platelet Volume 10.1 fL (7.4-10.4); Platelet Count 164 10^3/uL (130-400); Red Blood Cell Count 2.43 10^6/uL (4.20-5.40); Red Cell Dist. Width 15.1 % (11.5-14.5)
[2023-08-17 06:04] LABS: NT-proBNP 21800 pg/ml
[2023-08-17 06:18] LABS: ALT (SGPT) 11 U/L (0-35); AST (SGOT) 21 U/L (14-36); Albumin 3.4 g/dl (3.5-5.0); Alkaline Phosphatase 68 U/L (38-126); Blood Urea Nitrogen 93 mg/dl (7-17); Calcium 9.2 mg/dl (8.4-10.2); Carbon Dioxide 22 mmol/L (22-30); Chloride 108 mmol/L (98-107); Estimated Creatinine Clearance 13 ml/min; Glucose 142 mg/dl (70-99); Potassium 4.4 mmol/L (3.5-5.1); Sodium 146 mmol/L (135-145); Total Bilirubin 0.7 mg/dl (0.2-1.3); eGFR 9.17
[2023-08-17] MEDS: HEPARIN 5000 UNITS SC ×2 (07:34→20:56)
[2023-08-17] MEDS: MORPHINE SULFATE 1 MG IV (07:35)
[2023-08-17] MEDS: VITAMIN C PO (07:37)
[2023-08-17] MEDS: FEOSOL PO (07:37)
[2023-08-17] MEDS: NORVASC PO (07:37)
[2023-08-17] MEDS: PROTONIX PO (07:37)
[2023-08-17] MEDS: VITAMIN D3 (cholecalciferol) PO (07:37)
[2023-08-17] MEDS: ZOLOFT PO (07:37)
--- NOTE | 2023-08-17 08:01 | PHA.VAN.FU ---
Vancomycin Assessment / Plan
- Assessment
Renal Function: SCR Increasing (3.3->4.2->4.8)
WBC's are: WNL
In the past 24 hrs, patient has been: Afebrile
Concomitant Antimicrobials: piperacillin/tazobactam
- Assessment - Therapeutic Drug Monitoring
Random Level: 27.0 - drawn ~ 42 hours after 2000 mg LD
Calculated half life (H): based on last 2 random levels T 1/2 > 200 hours
- Dosing Plan
Dosing by Level: Hold off on dosing today
- Monitoring Plan
No level(s) ordered at this time: based on long T1/2 consider levels in a couple days
- Follow Up
Pharmacy will continue to follow.
Vancomycin Follow UP
- -
Patient Age: 73
Patient Sex: Female
Vancomycin Day #: 3
Indication: Pulmonary/Respiratory
Requesting Provider: Dr. Choi
Pertinent Antimicrobial Allergies:
NKDA
Height / Weight:
Height 5 ft 6 in
Actual Weight 105.5 kg
Pertinent Past Medical History: BMI ~38, CKD, DM2
- Vital Signs / Lab Results
Temp Pulse Resp BP Pulse Ox
97.4 F 74 17 118/61 98
08/17/23 03:14 08/17/23 06:00 08/17/23 06:00 08/17/23 06:00 08/17/23 06:00
Lab Results - Hematology
08/15/23 08/16/23 08/17/23
05:23 04:20 05:16
WBC 13.6 H 10.2 10.0
Lab Results - Chemistry
08/15/23 08/16/23 08/17/23
05:23 04:20 05:16
BUN 81 H 85 H 93 H
Creatinine 3.3 H 4.2 H* 4.8 H*
Estimated Creat Clear 19 15 13
Albumin 3.2 L 3.1 L 3.4 L
Microbiology Results
08/12/23 19:40 Blood Culture - Preliminary
Blood/Venous No Growth in 4 days- Final report to follow
08/12/23 17:24 Blood Culture - Preliminary
Blood/Venous No Growth in 4 days- Final report to follow
08/15/23 11:56 Nasal Screen MRSA (PCR) - Final
Nose MRSA not detected - performed by PCR methodology.
Therapeutic Drug Monitoring
Random Vancomycin 27.0 ug/ml 08/17/23 05:16
--- NOTE | 2023-08-17 08:40 | RESPNOTE ---
patient on continuous bipap since 1030am yesterday 08/15. removed mask briefly with RN for patient to moisten mouth. patient off bipap for approx 1 minute, RR 30s, SpO2 low of 71%, WOB increased, returned to bipap 20/10 w/ 15L O2 and recovered to
SPO2 92%, RR 22 within 3 minutes. patient states she feels increasingly SOB when off bipap. patient repositioned in bed with RN, comfortable now, vitals within normal limits for patient.
--- NOTE | 2023-08-17 10:02 | W.PN.PUL3 ---
Today's Communication / Plan
-
Continue maximal medical care
Morphine as needed
BiPAP as tolerated
Oxygen supplementation
Follow electrolytes and renal function
Assessment
-
Assessment:
Mrs Anahi Long is a 73/W adm 08-07 with 2-3 d h/o worsening dyspnea in setting of chronic hypoxic resp failure on home O2 at 3L and multiple comorbidities. At ER, POx 87% on O2 2L, deemed in ac/chronic HF, started on diuretic. Reportedly partial
use and sometimes refusal of BPAP as inpatient. Increasing O2 requirement from chronic baseline 3 L, ABG with respiratory acidosis and hypoxemia on O2 15L, resumed BPAP (currently at 14/6 c 10L O2), diuretic discontinued, atbs changed to zosyn (on
atbs since adm with interim changes as mentioned below), transferred to IMU, pulm consulted.
First DH adm
Impression:
Acute on chronic hypoxemia/hypercarbia requiring noninvasive mechanical ventilation.
On home ventilator trilogy for last 1.5 y
Acute hypercarbia, respiratory acidosis
Bilateral pneumonia
No baseline CXR or CTs for comparison
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
Anemia, severe. Unknown baseline
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
MRSA negative
Elevated D-dimer (likely due to severe infection, kidney disease)
Elevated BNP
Normal troponin
Normal TSH
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
Chronic hypoxemia/hypercarbia, on home ventilator trilogy for last 1.[address] Carter at [facility]
HFpEF
CKD stage IIIb
AFib not on AC due to hemorrhagic CVA late 2021 (warfarin initiated for LLE DVT but d/c upon CVA)
LLE DVT
FREDY/OHS on trilogy and O2 3.5-4L for last 1.5 y, reports partial compliance with 4-5 h use max for last 6 m
Pneumonia, Feb 2021, Jan 2022, adm to [facility]
HTN
GERD
Chronic R foot decubitus ulcer
Bedbound state
Depression
Morbid obesity
Non-smoker
DNR
Plan:
Transferred to IMU 08-11 due to increasing O2 requirements
Unfortunately, condition continued to deteriorate. BiPAP dependent. Requiring high amount of oxygen. Unable to take breaks from noninvasive mechanical ventilation.
Worsening renal function, anuric.
Mixed acid-base disorder: Metabolic/respiratory acidosis and metabolic alkalosis.
-
CT chest suggestive of bilateral pneumonia. Does have small bilateral pleural effusion-heart failure component also possible.
Chest x-ray 08/15/2023: Reviewed persistent bilateral infiltrate-stable compared to yesterday. No significant pleural effusion per
-
ABG: Persistent decompensated acute on chronic hypercapnic respiratory failure despite high intensity BiPAP.
Currently 20/10.
Continue to supplement with oxygen as able.
Continues to have increased work of breathing
-
Has already mask leaking with current pressures. Unable to titrate further.
Continue with backup pressure of 14
No further ABGs will be performed.
Discussed with at the bedside 08/16/2023: DNR status.
Morphine as needed started for increased work of breathing.
-
Cannot rule out noninfectious etiology. Cryptogenic pneumonia/DAH/etc.
Given worsening hypoxemia, poor air movement, will started IV dexamethasone 08/16/2023. Continue without change.
-
Patient is at baseline bedbound. Poor baseline conditioning.
-
Chest x-ray: 08/15/2023: Persistent bilateral infiltrates. No pleural effusion.
CXR with L mid ovoid infiltrate and patchy RUL infiltrate.
Chest CT s/c 08-11, no baseline available. Multiple bilateral dense infiltrates, small bilateral pleural effusions.
TTE: LVEF 75%, normal DD, normal RV size/function
proBNP elevated on admission.
Status post 1 unit of packed red blood cells.
Remains anemic with hemoglobin of 7. Likely contributing to symptoms.
Patient has not responded to Lasix. She is anuric.
Nephrology consulted. Worsening renal function.
Not a great candidate for dialysis. Nephrology discussing with who is inquiring about it.
Not responsive to diuretics.
Discussed with 08/17/2023.
-
Continue antibiotics to cover for pneumonia. Currently on Zosyn.
Given hypothermia/leukocytosis, vancomycin restarted 08/15/2023. Discussed with pharmacy.
MRSA screening negative
All cultures negative.
Foot wound ulcer: Polymicrobial.
Unable to produce sputum
Influenza negative
Covid neg
-
Echocardiogram 08/09/2023: mild LVH. Ejection fraction 75%. Normal right ventricular size and function. No significant valvular abnormalities.
Diuretics as able.
Unfortunately anuric. Worsening renal function.
Follow electrolytes.
-
Anemia, likely due to renal disease.
Management per primary team.
Status post transfusion 08/14/2023
Remains anemic, no evidence for bleeding
-
Chronic R foot decubitus ulcer.
Podiatry following
Does not probe to bone, no tunneling found
ANABELLA normal
Culture gram-negative bacilli/group C streptococcus/
Management per primary team.
-
Needs to follow with pulm after d/c, follows Dr Carter at [facility]
-
Case discussed with nephrology and primary team 08/16/2023.
updated at the bedside 08/16/2023, poor prognosis. He would like to continue with medical care for now, okay with morphine if patient has increased work of breathing
-
High risk situation. inquiring about dialysis. Discussing with nephrology.
-
Will follow
Subjective Data
-
Date of Service:
Date of Service: August 17, 2023
Chief Complaint: Pulmonary Follow Up (Bilateral pneumonia/acute on chronic hypoxemic/hypercapnic respiratory failure.)
Subjective:
Unfortunately, BiPAP dependent.
Increased work of breathing intermittently with BiPAP breaks.
Requiring high amounts of supplemental oxygen.
Worsening renal function.
Review of Systems
General: Fever (n)
Cardiopulmonary: Dyspnea on Exertion
GI: Abdominal Pain (n) and Nausea (n)
Objective Data
Data Reviewed
Vital Signs / I&O / Oxygen:
Vital Signs
Temp Pulse Resp BP Pulse Ox
97.3 F 74 17 118/61 98
08/17/23 07:25 08/17/23 06:00 08/17/23 06:00 08/17/23 06:00 08/17/23 06:00
Intake and Output
08/16/23 08/17/23 08/18/23
06:59 06:59 06:59
Intake Total 100 / 100 100 / 100 100 / 100
Balance 100 / 100 100 / 100 100 / 100
SaO2 98
Nasal Cannula flow liters per 15
minute
Physical Exam
General: Respiratory Distress (Yes at rest)
HEENT: Normocephalic and Moist Mucous Membranes
Cardiovascular: S1-S2
Respiratory: Wheeze (n) and Crackles
GI: Distended (obese)
Neurology: Awake and Alert
Skin: Warm
Labs/Micro/Reports
Lab Data
08/17/23 05:16
08/17/23 05:16
Microbiology
08/12/23 19:40 Blood/Venous Blood Culture - Preliminary
No Growth in 4 days- Final report to follow
08/12/23 17:24 Blood/Venous Blood Culture - Preliminary
No Growth in 4 days- Final report to follow
08/15/23 11:56 Nose Nasal Screen MRSA (PCR) - Final
MRSA not detected - performed by PCR methodology.
--- NOTE | 2023-08-17 11:13 | W.PN.NEPH.PH ---
Today's Communication / Plan
-
follow BMP
Assessment/Plan
-
Impression:
Bilateral
Acute kidney injury
CKD stage IV (3.0) on 06/16
Diabetes
Chronic Right foot wound (wound culture notes GNB/ group c strep)
Hypertension
Acidemia :acute on chronic chronic hypoxic respiratory failure/metabolic acidosis
Atrial fibrillation
History of hemorrhagic CVA
History of left leg DVT
Morbid obesity
Obstructive sleep apnea on CPAP
Hypercapnic respiratory
Anemia
Plan:
-long discussion with and patient.
reviewed dialysis and its impact on QoL. He reported that given her already fairly low quality of life is unlikely that initiation of dialysis may worsen this even more. He says that she has otherwise been tolerating this current level of life
style. He believes that she could be able to go to dialysis 3 times weekly from home with transportation. I emphasized that if she is unable to get to the driveway transportation does not enter the home. He says that they have a Jason lift.
I am skeptical that this will be a practical solution. I told him that overall I am not in favor of dialysis given the poor long-term practicality. He will continue to discuss this with her. I have told them that given the current rate of rise of
creatinine that decision will need to be made in the next 24 to 48 hours.
-
-
Date of Service: August 17, 2023
CC / HPI / ROS
-
Chief Complaint:
CONSTANCE
History of Present Illness:
CONSTANCE/Cr worse at 4.8
Hgb low 7.0
BP stable
remains on supplemental O2
Review of Systems:
no CP
bedbound
Labs
-
Labs:
WBC 10.0 10^3/uL (4.8-10.8) 08/17/23 05:16
RBC 2.43 10^6/uL (4.20-5.40) L 08/17/23 05:16
Hgb 7.0 g/dL (12.0-16.0) L 08/17/23 05:16
Hct 23.0 % (37.0-47.0) L 08/17/23 05:16
Plt Count 164 10^3/uL (130-400) 08/17/23 05:16
Sodium 146 mmol/L (135-145) H 08/17/23 05:16
Potassium 4.4 mmol/L (3.5-5.1) 08/17/23 05:16
Chloride 108 mmol/L (98-107) H 08/17/23 05:16
Carbon Dioxide 22 mmol/L (22-30) 08/17/23 05:16
BUN 93 mg/dl (7-17) H 08/17/23 05:16
Creatinine 4.8 mg/dL (0.6-1.0) H* 08/17/23 05:16
eGFR 9.17 08/17/23 05:16
Glucose 142 mg/dl (70-99) H 08/17/23 05:16
Calcium 9.2 mg/dl (8.4-10.2) 08/17/23 05:16
Mke-D-Wvtrsfznfge Pept 22599 pg/ml 08/17/23 05:16
Albumin 3.4 g/dl (3.5-5.0) L 08/17/23 05:16
Physical Exam
-
Vital Signs:
Vital Signs
Temp Pulse Resp BP Pulse Ox
97.3 F 74 17 118/61 98
08/17/23 07:25 08/17/23 06:00 08/17/23 06:00 08/17/23 06:00 08/17/23 06:00
Cardiovascular:: Regular rate and rhythm
Respiratory:: Bilateral: Coarse
Lung Excursion:: Normal
Abdomen:: Nontender and Soft
Bowel Sounds:: Normal
Extremity Edema:: +2: Bilateral:
--- NOTE | 2023-08-17 16:05 | W.PN.HOSP.TC ---
Today's Communication/Plan
-
IV antibiotics
IV steroids
NIV
No aggressive measures as per family/
Dilaudid PRN
Monitor renal function
Assessment / Plan
Assessment / Plan
TTE
Mild concentric left ventricular hypertrophy. Normal regional wall motion. Left ventricular ejection fraction is 75% by Pham's method.
Normal diastolic function. Normal right ventricular size and function. Trace mitral regurgitation.
Aortic sclerosis without stenosis. Mild tricuspid regurgitation.
Estimated pulmonary artery pressure of 37 mmHg, assuming a right atrial pressure of 3 mmHg. Normal pericardium without effusion.
The IVC is of normal size and demonstrates normal respiratory variation.
NO prior available for comparison
CT right foot
Findings suggesting moderate cellulitis of the dorsal right foot. No focal fluid collection to suggest abscess . Limited exam without IV contrast.
LE arterial doppler
1. Noncompressible arteries bilaterally, suggestive of medial calcinosis and/or arterial noncompliance, which makes measured ankle-brachial indices unreliable. Toe brachial indices are considered more reliable in this situation.
2. Right toe brachial index 1.03 (normal greater than 0.7). No focal arterial stenosis demonstrated. Spectral Doppler waveforms are normal to the level of ankle.
3. Left toe brachial index 1.23. No focal arterial stenosis demonstrated. Spectral Doppler waveforms are normal to the level of ankle.

# Acute on chronic hypoxic and hypercapneic respiratory failure
#B/l Pneumonia
--Patient usually on 3 to oxygen through nasal cannula at home 13/11. now on 15L
-No evidence of fluid overload on imaging, proBNP unreliable as CONSTANCE on CKD; may be component of PAH versus acute HFpEF
-Stop lasix due to rising Scr
-Zosyn, add vanco
- IV steroids
-F/u cultures if expectorating
- Incentive Jairon
-appreciate pulm consult
-Hold on further lasix
-Cont BiPAP for today
-anxiety control
-EF 75%;
Echocardiogram report as above
#CONSTANCE on Presumed CKD stage IIIb
-stop lasix
-Gentle fluid if CT chest unremarkable
-Patient was admitted taken off of Lasix due to worsening renal function by primary powdered sugar supervisor 3 wks back. Patient was apparently on p.o. Lasix 40 g twice daily before.
-Bladder scan and straight cath protocol ordered
-stop ivf
-Hold on Lasix
� Nephrology consulted
� approaching HD, although poor candidate - on going discussions with /
#Hypernatremia
-2/2 to overdiuresis
-hold lasix
-ctm
#Anemia
� Chronic
� Does not appear to be actively bleeding
� Transfuse 1 unit PRBC 08/13
� Continue to trend CBC
� Iron saturation within normal limits, ferritin elevated
- I suspect this is due to chronic illness
#Right foot chronic decubitus wound
-Ongoing for 2.5 yrs. Patient gets wound care at home by VN. Have been seen by podiatry in the past as well
-Infected foul-smelling purulent drainage on exam in ER
-Superficial Wound culture growing gram neg bacilli, group c streptococcus
-Lower extremity ANABELLA report as above
-CT left foot/xr did not show osteo. no abscess.
-Podiatry evaluated. continue local wound care.
-wound looks dry with healthy granulation tissue. to complete abx course today 08/13 although now on zosyn
#history of A-fib
h/o of LLE DVT
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
-can not get CT Chest PE with renal function and V/q due to pulm edema
-dvt study negative this admit
#Essential hypertension
-Continue Norvasc/metoprolol with holding parameters. Hold valsartan
#FREDY
-cont bipap
-Trelegy at home
morbid obesity
bedbound
recovered type 2 diabetes - A1c 5.1
depression
GERD
DVT PPX - heparin subq
DNR/DNI
08/15: Had extensive discussion with . Opting to continue care although understands possible clinical course and may opt for comfort care within next 24 hours. Patient understands that patient is very critical, removing BiPAP will accelerate
patient's . Further is poor candidate for HD due to weight - on going discussions
Total time spent on today's encounter was 55 minutes which included time spent in counseling the patient/family regarding diagnosis and treatment plan as listed above, goals of care, and symptom management. Case was discussed with nursing staff,
specialists, and care coordinators/case management. All labs and imaging personally reviewed by me. Remainder the time spent in detailed review of previous records, lab data, imaging, and other medical provider documentation.
Anticipated Discharge: > 48 hours
Subjective/Interval History
-
Date of Service: August 17, 2023
feels somewhat better today
Objective Data
-
Labs:
Laboratory Results
08/17/23
05:16
WBC 10.0
Hgb 7.0 L
Hct 23.0 L
Plt Count 164
Sodium 146 H
Potassium 4.4
Chloride 108 H
Carbon Dioxide 22
BUN 93 H
Creatinine 4.8 H*
Glucose 142 H
Calcium 9.2
Total Bilirubin 0.7
AST 21
ALT 11
Alkaline Phosphatase 68
Vital Signs:
Vital Signs
Temp Pulse Resp BP Pulse Ox
98.1 F 74 17 118/61 98
08/17/23 15:31 08/17/23 06:00 08/17/23 06:00 08/17/23 06:00 08/17/23 06:00
I&O
08/16/23 08/17/23 08/18/23
06:59 06:59 06:59
Intake Total 100 / 100 100 / 100 100 / 100
Balance 100 / 100 100 / 100 100 / 100
Review of Systems
-
History Source: Patient
All other systems: Not reviewed unless documented
Data Reviewed
-
Diagnostic Radiology: Image personally visualized and interpreted and Report Reviewed by me
Labs: Labs Reviewed by me
[2023-08-17] MEDS: DILAUDID 0.25 MG IV (17:22)
--- NOTE | 2023-08-17 17:39 | CM ---
Patient with Dx Acute on chronic hypoxic respiratory failure, PNA, CONSTANCE, Anemia, Right foot chronic decubitus wound. O2 15L. BiPAP. Receiving IV Decadron, IV Abx, IV MS prn, IV Dilaudid prn. Per nursing; Complete bedrest. Wound care right foot
QD.
CM continuing to follow for d/c needs.
Plan TBD.
[2023-08-17] MEDS: LIPITOR PO (20:55)
[2023-08-18] VITALS (18 sets, daily range): BP systolic 115–155; BP diastolic 50–113; PULSE 2–121; BMI 37.2
[2023-08-18] MEDS: DECADRON 4 MG IV ×4 (00:04→23:42)
[2023-08-18] MEDS: ZOSYN 50 IV ×4 (00:04→23:42)
[2023-08-18] MEDS: DILAUDID 0.25 MG IV (02:36)
[2023-08-18] MEDS: DESENEX/MITRAZOL/ZEASORB 1 APPLIC TOPICAL ×2 (02:38→20:44)
[2023-08-18 05:17] LABS: Hematocrit 22.9 % (37.0-47.0); Mean Corp Hgb Conc. 30.6 g/dL (33.0-37.0); Mean Corpuscular Hgb 28.7 pg (27.0-31.0); Mean Corpuscular Volume 93.9 fL (81.0-99.0); Mean Platelet Volume 10.3 fL (7.4-10.4); Platelet Count 143 10^3/uL (130-400); Red Blood Cell Count 2.44 10^6/uL (4.20-5.40); White Blood Cell Count 8.7 10^3/uL (4.8-10.8)
--- NOTE | 2023-08-18 05:36 | PTCARENOTE ---
Patient has been in and out of Afib/NSR all night. Denies chest pains or palpitations. Prn dilaudid provided for bilat LE pain; pt did not want her legs to be touched d/t pain. Pt refused turning and hygiene until this morning, she was agreeable to
be cleaned. Two liquid incontinent BMs. Barrier cream and antifungal powder applied generously. Pt was forgetful overnight; disoriented to place and asked about where her was. BiPap on all night. Sp02 fluctuates between mid 80s to 90s.
Call green within reach.
[2023-08-18 05:44] LABS: ALT (SGPT) 14 U/L (0-35); AST (SGOT) 25 U/L (14-36); Albumin 3.5 g/dl (3.5-5.0); Alkaline Phosphatase 77 U/L (38-126); Blood Urea Nitrogen 104 mg/dl (7-17); Calcium 8.6 mg/dl (8.4-10.2); Carbon Dioxide 20 mmol/L (22-30); Chloride 109 mmol/L (98-107); Estimated Creatinine Clearance 12 ml/min; Glucose 161 mg/dl (70-99); Magnesium 1.9 mg/dl (1.6-2.3); Potassium 3.6 mmol/L (3.5-5.1); Sodium 147 mmol/L (135-145); Total Bilirubin 0.8 mg/dl (0.2-1.3); Total Protein 6.2 g/dl (6.3-8.2); eGFR 7.96
[2023-08-18] MEDS: VITAMIN D3 (cholecalciferol) 50 MCG PO (08:09)
[2023-08-18] MEDS: NORVASC 5 MG PO (08:09)
[2023-08-18] MEDS: VITAMIN C 250 MG PO (08:09)
[2023-08-18] MEDS: HEPARIN 5000 UNITS SC ×2 (08:11→20:41)
[2023-08-18] MEDS: ZOLOFT 50 MG PO (08:11)
[2023-08-18] MEDS: FEOSOL 325 MG PO (08:11)
[2023-08-18] MEDS: PROTONIX 40 MG PO (08:11)
--- NOTE | 2023-08-18 09:40 | W.PN.NEPH.PH ---
Today's Communication / Plan
-
HD
Assessment/Plan
-
Impression:
Bilateral
Acute kidney injury
CKD stage IV (3.0) on 06/16
Diabetes
Chronic Right foot wound (wound culture notes GNB/ group c strep)
Hypertension
Acidemia :acute on chronic chronic hypoxic respiratory failure/metabolic acidosis
Atrial fibrillation
History of hemorrhagic CVA
History of left leg DVT
Morbid obesity
Obstructive sleep apnea on CPAP
Hypercapnic respiratory
Anemia
Plan:
-long discussion with and patient.
We previously had reviewed dialysis and its impact on QoL. He reported that given her already fairly low quality of life is unlikely that initiation of dialysis may worsen this even more. He says that she has otherwise been tolerating this current
level of life style. He believes that she could be able to go to dialysis 3 times weekly from home with transportation. I emphasized that if she is unable to get to the driveway transportation does not enter the home. He says that they have a
Jason lift.
I am skeptical that this will be a practical solution. I told him that overall I am not in favor of dialysis given the poor long-term practicality. He says that he typically has help to get her from a Jason lift from the bed to a wheelchair.
Nurses aides typically can return later on to help him get her back into a Jason lift back to bed. This will clearly be required 3 times weekly if they were to do dialysis as an outpatient. I am not convinced that this will be practical long-term.
However, department appears to be minimally improved at this time and they would like to see if this will continue to improve further. Therefore we will start dialysis at this time in order to allow for more evaluation of her oxygen requirements.
I did tell him quite frankly that 4 L, which she is already chronically on, may even be too high for an outpatient dialysis unit to manage. He understands this restriction. Unless she is able to improve her oxygen requirements, she may be unable
to do dialysis as an outpatient and this would lead to a hospice situation.
-
-
Date of Service: August 18, 2023
CC / HPI / ROS
-
Chief Complaint:
CONSTANCE
History of Present Illness:
CONSTANCE/Cr worse at 5.4
Hgb low 7.0 still
BP stable
remains on supplemental O2, off BiPAP this am
Review of Systems:
no CP
bedbound
Labs
-
Labs:
WBC 8.7 10^3/uL (4.8-10.8) 08/18/23 04:50
RBC 2.44 10^6/uL (4.20-5.40) L 08/18/23 04:50
Hgb 7.0 g/dL (12.0-16.0) L 08/18/23 04:50
Hct 22.9 % (37.0-47.0) L 08/18/23 04:50
Plt Count 143 10^3/uL (130-400) 08/18/23 04:50
Sodium 147 mmol/L (135-145) H 08/18/23 04:50
Potassium 3.6 mmol/L (3.5-5.1) 08/18/23 04:50
Chloride 109 mmol/L (98-107) H 08/18/23 04:50
Carbon Dioxide 20 mmol/L (22-30) L 08/18/23 04:50
BUN 104 mg/dl (7-17) H* 08/18/23 04:50
Creatinine 5.4 mg/dL (0.6-1.0) H* 08/18/23 04:50
eGFR 7.96 08/18/23 04:50
Glucose 161 mg/dl (70-99) H 08/18/23 04:50
Calcium 8.6 mg/dl (8.4-10.2) 08/18/23 04:50
Ket-P-Adlrtcbjjmi Pept 19497 pg/ml 08/17/23 05:16
Albumin 3.5 g/dl (3.5-5.0) 08/18/23 04:50
Physical Exam
-
Vital Signs:
Vital Signs
Temp Pulse Resp BP Pulse Ox
98.4 F 120 18 119/67 97
08/18/23 07:29 08/18/23 08:09 08/18/23 06:00 08/18/23 08:09 08/18/23 06:00
Cardiovascular:: Regular rate and rhythm
Respiratory:: Bilateral: Coarse
Lung Excursion:: Normal
Abdomen:: Nontender and Soft
Bowel Sounds:: Normal
Extremity Edema:: +3: Bilateral:
--- NOTE | 2023-08-18 09:50 | PHA.VAN.FU ---
Vancomycin Assessment / Plan
- Assessment
Renal Function: SCR Increasing (3.3 to 4.2 to 4.8 to 5.4 today)
WBC's are: Trending Down
In the past 24 hrs, patient has been: Afebrile
Concomitant Antimicrobials: Piperacillin-tazobactam
- Dosing Plan
Continue: Dosing by level
Dosing by Level: Hold off on dosing today
Dosing Comments: Last R on 08/16 = 27. Estimated T1/2 >200hrs
- Monitoring Plan
Random Level: 08/18 AM
- Follow Up
Pharmacy will continue to follow.
Vancomycin Follow UP
- -
Patient Age: 73
Patient Sex: Female
Vancomycin Day #: 4
Indication: Pulmonary/Respiratory
Requesting Provider: Dr. Choi
Pertinent Antimicrobial Allergies:
NKDA
Height / Weight:
Height 5 ft 6 in
Actual Weight 104.5 kg
Pertinent Past Medical History: BMI ~38, CKD, DM2
- Vital Signs / Lab Results
Temp Pulse Resp BP Pulse Ox
98.4 F 120 18 119/67 97
08/18/23 07:29 08/18/23 08:09 08/18/23 06:00 08/18/23 08:09 08/18/23 06:00
Lab Results - Hematology
08/16/23 08/17/23 08/18/23
04:20 05:16 04:50
WBC 10.2 10.0 8.7
Lab Results - Chemistry
08/16/23 08/17/23 08/18/23
04:20 05:16 04:50
BUN 85 H 93 H 104 H*
Creatinine 4.2 H* 4.8 H* 5.4 H*
Estimated Creat Clear 15 13 12
Albumin 3.1 L 3.4 L 3.5
Microbiology Results
08/12/23 19:40 Blood Culture - Final
Blood/Venous No Growth - Final Report
08/12/23 17:24 Blood Culture - Final
Blood/Venous No Growth - Final Report
Therapeutic Drug Monitoring
Random Vancomycin 27.0 ug/ml 08/17/23 05:16
--- NOTE | 2023-08-18 10:21 | W.PN.PUL3 ---
Today's Communication / Plan
-
Continue maximal medical care
Morphine as needed
BiPAP as tolerated
Oxygen supplementation
Follow electrolytes and renal function --> awaiting to start HD
Guarded prognosis
Assessment
-
Assessment:
Mrs Anahi Long is a 73/W adm 08-07 with 2-3 d h/o worsening dyspnea in setting of chronic hypoxic resp failure on home O2 at 3L and multiple comorbidities. At ER, POx 87% on O2 2L, deemed in ac/chronic HF, started on diuretic. Reportedly partial
use and sometimes refusal of BPAP as inpatient. Increasing O2 requirement from chronic baseline 3 L, ABG with respiratory acidosis and hypoxemia on O2 15L, resumed BPAP (currently at 14/6 c 10L O2), diuretic discontinued, atbs changed to zosyn (on
atbs since adm with interim changes as mentioned below), transferred to IMU, pulm consulted.
First DH adm
Impression:
Acute on chronic hypoxemia/hypercarbia requiring noninvasive mechanical ventilation.
On home ventilator trilogy for last 1.5 y
Acute hypercarbia, respiratory acidosis - likely OHS in setting of ADHF and volume overload from CONSTANCE
Bilateral pneumonia
No baseline CXR or CTs for comparison
HFpEF, off outpatient diuretic for 3 wks CLERK GENERAL due to A/CKI
Anemia, severe. Unknown baseline
A/CKD CLERK GENERAL, off furosemide by outpatient nephrology 3 wks CLERK GENERAL
MRSA negative
Elevated D-dimer (likely due to severe infection, kidney disease)
Elevated BNP
Normal troponin
Normal TSH
Conditions CLERK GENERAL:
Chronic hypoxemia/hypercarbia, on home ventilator trilogy for last 1.[address] Carter at [facility]
HFpEF
CKD stage IIIb
AFib not on AC due to hemorrhagic CVA late 2021 (warfarin initiated for LLE DVT but d/c upon CVA)
LLE DVT
FREDY/OHS on trilogy and O2 3.5-4L for last 1.5 y, reports partial compliance with 4-5 h use max for last 6 m
Pneumonia, Feb 2021, Jan 2022, adm to [facility]
HTN
GERD
Chronic R foot decubitus ulcer
Bedbound state
Depression
Morbid obesity
Non-smoker
DNR
Plan:
Transferred to IMU 08-11 due to increasing O2 requirements
Unfortunately, condition continued to deteriorate. BiPAP dependent. Requiring high amount of oxygen. Unable to take breaks from noninvasive mechanical ventilation.
Worsening renal function, anuric --> awaiting initiation of HD (patient had tunnelled HD catheter inserted today by IR)
Mixed acid-base disorder: Metabolic/respiratory acidosis and metabolic alkalosis.
-
CT chest suggestive of bilateral pneumonia. Does have small bilateral pleural effusion-heart failure component also possible.
Chest x-ray 08/15/2023: Reviewed persistent bilateral infiltrate-stable. No significant pleural effusion
-
ABG: Persistent decompensated acute on chronic hypercapnic respiratory failure despite high intensity BiPAP.
Currently 20/10.
Continue to supplement with oxygen as able.
Continues to have increased work of breathing
-
Has already mask leaking with current pressures. Unable to titrate further.
Continue with backup pressure of 14
No further ABGs will be performed.
Dr. Choi had discussed with at the bedside 08/16/2023: DNR status.
Morphine as needed started for increased work of breathing.
-
Cannot rule out noninfectious etiology. Cryptogenic pneumonia/DAH/etc.
Given worsening hypoxemia, poor air movement, IV dexamethasone was started on 08/15/2023. Wean slowly.
-
Patient is at baseline bedbound. Poor baseline conditioning.
-
Chest x-ray: 08/15/2023: Persistent bilateral infiltrates. No pleural effusion.
CXR with L mid ovoid infiltrate and patchy RUL infiltrate.
Chest CT s/c 08-11, no baseline available. Multiple bilateral dense infiltrates, small bilateral pleural effusions.
TTE: LVEF 75%, normal DD, normal RV size/function
proBNP elevated on admission.
Status post 1 unit of packed red blood cells on 08/14/2023.
Remains anemic with hemoglobin of approx. 7, which is likely contributing to symptoms.
Patient has not responded to Lasix. She is anuric.
Nephrology consulted --> awaiting initiation of HD as per 08-18-2023 - tunnelled HD catheter inserted today by IR
-
Continue antibiotics to cover for pneumonia. Currently on Zosyn.
Given hypothermia/leukocytosis, vancomycin restarted 08/15/2023. Discussed with pharmacy.
MRSA screening negative
All cultures negative.
Foot wound ulcer: Polymicrobial.
Unable to produce sputum
Influenza negative
Covid neg
-
Echocardiogram 08/09/2023: mild LVH. Ejection fraction 75%. Normal right ventricular size and function. No significant valvular abnormalities.
Diuretics as able.
Unfortunately anuric. Worsening renal function. Awaiting HD initiation.
Follow electrolytes.
-
Anemia, likely due to renal disease.
Management per primary team.
Status post transfusion 08/14/2023
Remains anemic, no evidence for bleeding
-
Chronic R foot decubitus ulcer.
Podiatry following
Does not probe to bone, no tunneling found
ANABELLA normal
Culture gram-negative bacilli/group C streptococcus via wound Cx from 08-08-2023
Management per primary team.
-
Needs to follow with pulm after d/c, follows Dr Carter at [place] [facility]
-
Case discussed with nephrology and primary team 08/16/2023.
Dr. Choi had previously spoke to , and updated him at bedside on 08/16/2023, poor prognosis. He would like to continue with medical care for now, okay with morphine if patient has increased work of breathing
-
High risk situation/guarded prognosis
-
Will follow
Total time spent today was 50 minutes for this encounter. Time includes reviewing laboratory test/imaging results, reviewing pertinent medical records, obtaining and reviewing medical history, performing an appropriate exam, ordering medications,
tests and procedures. Time also includes documentation of this encounter, coordinating patient care and communicating with other healthcare professionals. Total time does not include separately billed tests performed on this date of service.
Subjective Data
-
Date of Service:
Date of Service: August 18, 2023
Chief Complaint: Pulmonary Follow Up (Bilateral pneumonia/acute on chronic hypoxemic/hypercapnic respiratory failure.)
Subjective:
Patient seen this morning. Lying in bed on BiPAP 20/10 bled with 15 L/min, with SpO2 91%. HR: 79. Right sided HD catheter inserted today. She says she feels fine, denies shortness of breath, wants the mask off her face.
Review of Systems
General: Other (Negative unless mentioned above)
Objective Data
Data Reviewed
Vital Signs / I&O / Oxygen:
Vital Signs
Temp Pulse Resp BP Pulse Ox
98.4 F 100 19 126/50 92
08/18/23 07:29 08/18/23 10:00 08/18/23 10:00 08/18/23 10:00 08/18/23 10:00
Intake and Output
08/17/23 08/18/23 08/19/23
06:59 06:59 06:59
Intake Total 100 / 100 150 / 150
Balance 100 / 100 150 / 150
SaO2 92
Nasal Cannula flow liters per 15
minute
Physical Exam
General: Respiratory Distress (Yes at rest), Chills (negative) and Other (Morbidly obese)
HEENT: Normocephalic and Anicteric
Cardiovascular: S1-S2 and Peripheral Edema (+1 lower extremity edema)
Respiratory: Wheeze (n), Crackles (Negative), Rhonchi (Bilaterally (R >L)), Non-Labored Respirations and Other (BiPAP full face mask on patient)
GI: Soft, Distended (obese), Non Tender and Normal Bowel Sounds
Neurology: Awake and Alert
Skin: Warm and Dry
Labs/Micro/Reports
Lab Data
08/18/23 04:50
08/18/23 04:50
Microbiology
08/12/23 19:40 Blood/Venous Blood Culture - Final
No Growth - Final Report
08/12/23 17:24 Blood/Venous Blood Culture - Final
No Growth - Final Report
08/15/23 11:56 Nose Nasal Screen MRSA (PCR) - Final
MRSA not detected - performed by PCR methodology.
--- NOTE | 2023-08-18 14:12 | W.PN.HOSP.TC ---
Today's Communication/Plan
-
add lopressor
cont iv abx, steroids
HD initiation
BiPAP naps. qhs
Assessment / Plan
Assessment / Plan
TTE
Mild concentric left ventricular hypertrophy. Normal regional wall motion. Left ventricular ejection fraction is 75% by Pham's method.
Normal diastolic function. Normal right ventricular size and function. Trace mitral regurgitation.
Aortic sclerosis without stenosis. Mild tricuspid regurgitation.
Estimated pulmonary artery pressure of 37 mmHg, assuming a right atrial pressure of 3 mmHg. Normal pericardium without effusion.
The IVC is of normal size and demonstrates normal respiratory variation.
NO prior available for comparison
CT right foot
Findings suggesting moderate cellulitis of the dorsal right foot. No focal fluid collection to suggest abscess . Limited exam without IV contrast.
LE arterial doppler
1. Noncompressible arteries bilaterally, suggestive of medial calcinosis and/or arterial noncompliance, which makes measured ankle-brachial indices unreliable. Toe brachial indices are considered more reliable in this situation.
2. Right toe brachial index 1.03 (normal greater than 0.7). No focal arterial stenosis demonstrated. Spectral Doppler waveforms are normal to the level of ankle.
3. Left toe brachial index 1.23. No focal arterial stenosis demonstrated. Spectral Doppler waveforms are normal to the level of ankle.

# Acute on chronic hypoxic and hypercapneic respiratory failure
#B/l Pneumonia
--Patient usually on 3 to oxygen through nasal cannula at home 13/11. Was on BiPAP, now on 15L
-No evidence of fluid overload on imaging, proBNP unreliable as CONSTANCE on CKD; may be component of PAH versus acute HFpEF
-Stop lasix due to rising Scr
-Zosyn, add vanco
- IV steroids
-F/u cultures if expectorating
- Incentive [place]
-appreciate pulm consult
-Hold on further lasix
-Cont BiPAP nights and naps
-anxiety control
-EF 75%;
Echocardiogram report as above
#CONSTANCE on Presumed CKD stage IIIb
-stop lasix
-Gentle fluid if CT chest unremarkable
-Patient was admitted taken off of Lasix due to worsening renal function by primary voice engineer 3 wks back. Patient was apparently on p.o. Lasix 40 g twice daily before.
-Bladder scan and straight cath protocol ordered
-stop ivf
-Hold on Lasix
� Nephrology consulted
� After discussion, initiating HD
#Hypernatremia
-mild, has not eaten -
-Monitor with HD
#Anemia
� Chronic
� Does not appear to be actively bleeding
� Transfuse 1 unit PRBC 08/13
� Continue to trend CBC
� Iron saturation within normal limits, ferritin elevated
- I suspect this is due to chronic illness
#Right foot chronic decubitus wound
-Ongoing for 2.5 yrs. Patient gets wound care at home by VN. Have been seen by podiatry in the past as well
-Infected foul-smelling purulent drainage on exam in ER
-Superficial Wound culture growing gram neg bacilli, group c streptococcus
-Lower extremity ANABELLA report as above
-CT left foot/xr did not show osteo. no abscess.
-Podiatry evaluated. continue local wound care.
-wound looks dry with healthy granulation tissue. to complete abx course today 08/13 although now on zosyn
#history of A-fib
h/o of LLE DVT
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
-can not get CT Chest PE with renal function and V/q due to pulm edema
-dvt study negative this admit
-Restart BB slowly as having most likely BB withdrawal and now with afib with RVR - add it as lopressor 25mg BID
#Essential hypertension
-Continue Norvasc; Hold valsartan
-restart BB
#FREDY
-cont bipap
-Trelegy at home
morbid obesity
bedbound
recovered type 2 diabetes - A1c 5.1
depression
GERD
DVT PPX - heparin subq
DNR/DNI
Total time spent on today's encounter was 53 minutes which included time spent in counseling the patient/family regarding diagnosis and treatment plan as listed above, goals of care, and symptom management. Case was discussed with nursing staff,
specialists, and care coordinators/case management. All labs and imaging personally reviewed by me. Remainder the time spent in detailed review of previous records, lab data, imaging, and other medical provider documentation.
Anticipated Discharge: > 48 hours
Subjective/Interval History
-
Date of Service: August 18, 2023
Can be weaned off BiPAP this morning, tolerated diet well
Objective Data
-
Labs:
Laboratory Results
08/18/23
04:50
WBC 8.7
Hgb 7.0 L
Hct 22.9 L
Plt Count 143
Sodium 147 H
Potassium 3.6
Chloride 109 H
Carbon Dioxide 20 L
BUN 104 H*
Creatinine 5.4 H*
Glucose 161 H
Calcium 8.6
Total Bilirubin 0.8
AST 25
ALT 14
Alkaline Phosphatase 77
Vital Signs:
Vital Signs
Temp Pulse Resp BP Pulse Ox
97.8 F 120 25 155/72 90
08/18/23 13:41 08/18/23 13:41 08/18/23 13:41 08/18/23 13:41 08/18/23 13:41
I&O
08/17/23 08/18/23 08/19/23
06:59 06:59 06:59
Intake Total 100 / 100 150 / 150
Balance 100 / 100 150 / 150
Review of Systems
-
History Source: Patient
All other systems: Not reviewed unless documented
Physical Exam
-
General: No Apparent Distress, Comfortable and Morbidly Obese
HEENT: Oxygen (15 L mid flow)
Respiratory: Rales (mild although distant)
Cardiac: Regular Rhythm and S1/S2; Negative Murmur or Rub
GI: Soft, Nontender and Nondistended
Musculoskeletal: No Edema
Neuro: Awake, Alert, Oriented, No Motor Deficits and Nonfocal/Grossly Intact
Psych: Calm
Data Reviewed
-
Diagnostic Radiology: Image personally visualized and interpreted and Report Reviewed by me
Labs: Labs Reviewed by me
--- NOTE | 2023-08-18 14:29 | W.PN.IRAD.PR ---
Procedure Note
-
Tunneled RIJ hemodialysis catheter placed under US and fluoro guidance. No immediate complications. Catheter ready for use.
--- NOTE | 2023-08-18 14:35 | PTCARENOTE ---
Assumed care of Pt at shift change. Confirmed with RT and Hospitalist, okay to remove BiPAP in morning - placed on 12L MF then increase to 15L. Pt sent to [facility] for HD cath; Returned to floor @ 87% SpO2 on 15L MF. Placed back on BiPAP for a few
hours. Pt improved to ~ 96%, place back on MF for dinner. Will continue to monitor and assess.
[2023-08-18] MEDS: LOPRESSOR 25 MG PO (20:41)
[2023-08-18] MEDS: TYLENOL 650 MG PO (20:41)
[2023-08-18] MEDS: LIPITOR 40 MG PO (20:41)
[2023-08-19] VITALS (14 sets, daily range): BP systolic 105–138; BP diastolic 48–70; PULSE 2–68; BMI 37.5
[2023-08-19 04:20] LABS: Mean Corp Hgb Conc. 30.1 g/dL (33.0-37.0); Mean Corpuscular Hgb 28.8 pg (27.0-31.0); Mean Corpuscular Volume 95.4 fL (81.0-99.0); Mean Platelet Volume 11.1 fL (7.4-10.4); Platelet Count 112 10^3/uL (130-400); Red Blood Cell Count 2.19 10^6/uL (4.20-5.40); White Blood Cell Count 9.8 10^3/uL (4.8-10.8)
[2023-08-19 04:45] LABS: ALT (SGPT) 14 U/L (0-35); AST (SGOT) 25 U/L (14-36); Albumin 3.3 g/dl (3.5-5.0); Alkaline Phosphatase 55 U/L (38-126); Blood Urea Nitrogen 118 mg/dl (7-17); Calcium 8.4 mg/dl (8.4-10.2); Carbon Dioxide 22 mmol/L (22-30); Chloride 108 mmol/L (98-107); Estimated Creatinine Clearance 12 ml/min; Glucose 220 mg/dl (70-99); Magnesium 1.9 mg/dl (1.6-2.3); Potassium 3.6 mmol/L (3.5-5.1); Sodium 145 mmol/L (135-145); Total Bilirubin 0.9 mg/dl (0.2-1.3); Total Protein 5.9 g/dl (6.3-8.2); eGFR 8.33
[2023-08-19 04:57] LABS: Vancomycin Random 22.9 ug/ml
[2023-08-19 05:43] LABS: Hematocrit 20.9 % (37.0-47.0); Hemoglobin 6.3 g/dL (12.0-16.0)
--- NOTE | 2023-08-19 06:31 | PTCARENOTE ---
Patient able to eat some dinner. Brushed teeth, mouth moisturizer applied. Placed on Bipap by RT overnight. Pt can be anxious, asks for . Critical H/H this morning; X RAY TECHNOLOGIST Sanam made aware. Type and screen drawn and sent. Tele showing NSR/SB. No
urine output. Rectal trump in place, draining liquid stool. Refusing turns/repositioning. Plan for first session of HD today. Call green left within reach.
--- NOTE | 2023-08-19 07:38 | PHA.VAN.FU ---
Vancomycin Assessment / Plan
- Assessment
Hemodialysis Schedule: Other (Pt starting HD today. Unsure of schedule.)
WBC's are: Stable
In the past 24 hrs, patient has been: Hypothermic (Tmin = 96.3)
Concomitant Antimicrobials: Piperacillin-tazobactam
- Assessment - Therapeutic Drug Monitoring
Random Level: R = 22.9. Last Vanc was 2000mg 08/14 at 1117
- Dosing Plan
Continue: Dosing by level
Dosing by Level: Hold off on dosing today
- Monitoring Plan
Random Level: 08/19 AM
- Follow Up
Pharmacy will continue to follow.
Vancomycin Follow UP
- -
Patient Age: 73
Patient Sex: Female
Vancomycin Day #: 5
Indication: Pulmonary/Respiratory
Requesting Provider: Dr. Choi
Pertinent Antimicrobial Allergies:
NKDA
Height / Weight:
Height 5 ft 6 in
Actual Weight 105.4 kg
Pertinent Past Medical History: BMI ~38, CKD, DM2
- Vital Signs / Lab Results
Temp Pulse Resp BP Pulse Ox
97.6 F 57 13 121/53 96
08/19/23 03:23 08/19/23 06:00 08/19/23 06:00 08/19/23 06:00 08/19/23 06:00
Lab Results - Hematology
08/17/23 08/18/23 08/19/23
05:16 04:50 03:40
WBC 10.0 8.7 9.8
Lab Results - Chemistry
08/17/23 08/18/23 08/19/23
05:16 04:50 03:40
BUN 93 H 104 H* 118 H*
Creatinine 4.8 H* 5.4 H* 5.2 H*
Estimated Creat Clear 13 12 12
Albumin 3.4 L 3.5 3.3 L
Microbiology Results
08/12/23 19:40 Blood Culture - Final
Blood/Venous No Growth - Final Report
08/12/23 17:24 Blood Culture - Final
Blood/Venous No Growth - Final Report
Therapeutic Drug Monitoring
Random Vancomycin 22.9 ug/ml 08/19/23 03:40
[2023-08-19] MEDS: LOPRESSOR PO (08:41)
[2023-08-19] MEDS: DECADRON 4 MG IV ×2 (08:41→20:32)
[2023-08-19] MEDS: HEPARIN 5000 UNITS SC ×2 (08:41→20:32)
[2023-08-19 08:56] LABS: Hematocrit 21.2 % (37.0-47.0); Mean Corp Hgb Conc. 31.6 g/dL (33.0-37.0); Mean Corpuscular Hgb 29.3 pg (27.0-31.0); Mean Corpuscular Volume 92.6 fL (81.0-99.0); Mean Platelet Volume 11.2 fL (7.4-10.4); Platelet Count 113 10^3/uL (130-400); Red Blood Cell Count 2.29 10^6/uL (4.20-5.40); Red Cell Dist. Width 15.2 % (11.5-14.5); White Blood Cell Count 9.8 10^3/uL (4.8-10.8)
[2023-08-19 09:04] LABS: Hemoglobin 6.7 g/dL (12.0-16.0)
[2023-08-19] MEDS: VITAMIN C 250 MG PO (11:01)
[2023-08-19] MEDS: PROTONIX 40 MG PO (11:02)
[2023-08-19] MEDS: LOPRESSOR 25 MG PO ×2 (11:02→20:32)
[2023-08-19] MEDS: FEOSOL 325 MG PO (11:03)
[2023-08-19] MEDS: VITAMIN D3 (cholecalciferol) 50 MCG PO (11:03)
[2023-08-19] MEDS: ZOLOFT 50 MG PO (11:03)
[2023-08-19] MEDS: NORVASC PO (11:03)
[2023-08-19] MEDS: HEPARIN 500 UNITS IV ×2 (11:35→12:35)
[2023-08-19] MEDS: MANNITOL 12.5 GRAMS IV ×2 (11:49→12:50)
--- NOTE | 2023-08-19 12:15 | W.PN.PUL3 ---
Today's Communication / Plan
-
Continue maximal medical care
Morphine as needed
BiPAP as tolerated
Oxygen supplementation
Follow electrolytes and renal function --> first session of HD today
Guarded prognosis
Assessment
-
Assessment:
Mrs Anahi Long is a 73/W adm 08-07 with 2-3 d h/o worsening dyspnea in setting of chronic hypoxic resp failure on home O2 at 3L and multiple comorbidities. At ER, POx 87% on O2 2L, deemed in ac/chronic HF, started on diuretic. Reportedly partial
use and sometimes refusal of BPAP as inpatient. Increasing O2 requirement from chronic baseline 3 L, ABG with respiratory acidosis and hypoxemia on O2 15L, resumed BPAP (currently at 14/6 c 10L O2), diuretic discontinued, atbs changed to zosyn (on
atbs since adm with interim changes as mentioned below), transferred to IMU, pulm consulted.
First DH adm
Impression:
Acute on chronic hypoxemia/hypercarbia requiring noninvasive mechanical ventilation.
On home ventilator trilogy for last 1.5 y
Acute hypercarbia, respiratory acidosis - likely OHS in setting of ADHF and volume overload from CONSTANCE
Bilateral pneumonia
No baseline CXR or CTs for comparison
HFpEF, off outpatient diuretic for 3 wks ANIME ARTIST due to A/CKI
Anemia, severe. Unknown baseline
A/CKD ANIME ARTIST, off furosemide by outpatient nephrology 3 wks ANIME ARTIST
MRSA negative
Elevated D-dimer (likely due to severe infection, kidney disease)
Elevated BNP
Normal troponin
Normal TSH
Conditions ANIME ARTIST:
Chronic hypoxemia/hypercarbia, on home ventilator trilogy for last 1.[address] Carter at [facility]
HFpEF
CKD stage IIIb
AFib not on AC due to hemorrhagic CVA late 2021 (warfarin initiated for LLE DVT but d/c upon CVA)
LLE DVT
FREDY/OHS on trilogy and O2 3.5-4L for last 1.5 y, reports partial compliance with 4-5 h use max for last 6 m
Pneumonia, Feb 2021, Jan 2022, adm to [facility]
HTN
GERD
Chronic R foot decubitus ulcer
Bedbound state
Depression
Morbid obesity
Non-smoker
DNR
Plan:
Transferred to IMU 08-11 due to increasing O2 requirements
Unfortunately, condition continued to deteriorate. BiPAP dependent. Requiring high amount of oxygen. Unable to take breaks from noninvasive mechanical ventilation.
Worsening renal function, anuric --> awaiting initiation of HD (patient had tunnelled HD catheter inserted today by IR)
Mixed acid-base disorder: Metabolic/respiratory acidosis and metabolic alkalosis.
-
CT chest suggestive of bilateral pneumonia. Does have small bilateral pleural effusion-heart failure component also possible.
Chest x-ray 08/15/2023: Reviewed persistent bilateral infiltrate-stable. No significant pleural effusion
-
ABG: Persistent decompensated acute on chronic hypercapnic respiratory failure despite high intensity BiPAP.
Currently 20/10.
Continue to supplement with oxygen as able.
Continues to have increased work of breathing
-
Has already mask leaking with current pressures. Unable to titrate further.
Continue with backup pressure of 14
No further ABGs will be performed.
Dr. Choi had discussed with at the bedside 08/16/2023: DNR status.
Morphine as needed started for increased work of breathing.
-
Cannot rule out noninfectious etiology. Cryptogenic pneumonia/DAH/etc.
Given worsening hypoxemia, poor air movement, IV dexamethasone was started on 08/15/2023. Wean slowly.
-
Patient is at baseline bedbound. Poor baseline conditioning.
-
Chest x-ray: 08/15/2023: Persistent bilateral infiltrates. No pleural effusion.
CXR with L mid ovoid infiltrate and patchy RUL infiltrate.
Chest CT s/c 08-11, no baseline available. Multiple bilateral dense infiltrates, small bilateral pleural effusions.
TTE: LVEF 75%, normal DD, normal RV size/function
proBNP elevated on admission.
Status post 1 unit of packed red blood cells on 08/14/2023.
Remains anemic with hemoglobin of approx. 7, which is likely contributing to symptoms.
Patient has not responded to Lasix. She is anuric.
Nephrology consulted --> awaiting initiation of HD as per 08-18-2023 - tunnelled HD catheter inserted today by IR
-
Continue antibiotics to cover for pneumonia. Currently on Zosyn.
Given hypothermia/leukocytosis, vancomycin restarted 08/15/2023. Discussed with pharmacy.
MRSA screening negative
All cultures negative.
Foot wound ulcer: Polymicrobial.
Unable to produce sputum
Influenza negative
Covid neg
-
Echocardiogram 08/09/2023: mild LVH. Ejection fraction 75%. Normal right ventricular size and function. No significant valvular abnormalities.
Diuretics as able.
Unfortunately anuric. Worsening renal function. Started HD today (08/19/2023)
Follow electrolytes.
-
Anemia, likely due to renal disease.
Management per primary team.
Status post transfusion 08/14/2023
Remains anemic, no evidence for bleeding
-
Chronic R foot decubitus ulcer.
Podiatry following
Does not probe to bone, no tunneling found
ANABELLA normal
Culture gram-negative bacilli/group C streptococcus via wound Cx from 08-08-2023
Management per primary team.
-
Needs to follow with pulm after d/c, follows Dr Carter at [facility]
-
Case discussed with nephrology and primary team 08/16/2023.
Dr. Choi had previously spoke to , and updated him at bedside on 08/16/2023, poor prognosis. He would like to continue with medical care for now, okay with morphine if patient has increased work of breathing
-
High risk situation/guarded prognosis
-
Will follow
Total time spent today was 50 minutes for this encounter. Time includes reviewing laboratory test/imaging results, reviewing pertinent medical records, obtaining and reviewing medical history, performing an appropriate exam, ordering medications,
tests and procedures. Time also includes documentation of this encounter, coordinating patient care and communicating with other healthcare professionals. Total time does not include separately billed tests performed on this date of service.
Subjective Data
-
Date of Service:
Date of Service: August 19, 2023
Chief Complaint: Pulmonary Follow Up (Bilateral pneumonia/acute on chronic hypoxemic/hypercapnic respiratory failure.)
Subjective:
Seen this afternoon. at bedside. Saturating 94% on 13 L/min nasal cannula. She is in no acute distress. Of note, she has a trilogy machine at home. She denies chest pain, shortness of breath, fevers or chills.
Review of Systems
General: Other (Negative unless mentioned above)
Objective Data
Data Reviewed
Vital Signs / I&O / Oxygen:
Vital Signs
Temp Pulse Resp BP Pulse Ox
97.6 F 68 14 127/58 99
08/19/23 12:29 08/19/23 12:29 08/19/23 12:29 08/19/23 12:29 08/19/23 09:49
Intake and Output
08/18/23 08/19/23 08/20/23
06:59 06:59 06:59
Intake Total 150 / 150 630 / 630 250 / 250
Balance 150 / 150 630 / 630 250 / 250
SaO2 99
Nasal Cannula flow liters per 15
minute
Physical Exam
General: Respiratory Distress (Yes at rest), Chills (negative) and Other (Morbidly obese)
HEENT: Normocephalic and Anicteric
Cardiovascular: S1-S2 and Peripheral Edema (+1 lower extremity edema)
Respiratory: Wheeze (n), Crackles (Negative), Rhonchi (Bilaterally (R >L)) and Non-Labored Respirations
GI: Soft, Distended (obese), Non Tender and Normal Bowel Sounds
Neurology: Awake and Alert
Skin: Warm and Dry
Labs/Micro/Reports
Lab Data
08/19/23 08:39
08/19/23 03:40
Microbiology
08/12/23 19:40 Blood/Venous Blood Culture - Final
No Growth - Final Report
08/12/23 17:24 Blood/Venous Blood Culture - Final
No Growth - Final Report
[2023-08-19] MEDS: ProAmatine 5 MG PO (12:25)
--- NOTE | 2023-08-19 13:31 | W.PN.NEPH.HD ---
Assessment
-
Seen on HD. no complaints. BP low, midodrine on HD. transfuse PRBC. access tunnelled CVC ok
HD tomorrow
Progress Note - Hemodialysis
-
Date of Service: August 19, 2023
Duration: 30 minutes and 2 hours
Potassium Bath: 3
Calcium Bath: 2.5
Opti-Dialyzer: 160
Ultrafiltration: Other (2kg)
Blood Flow: 250
Dialysate Flow: 600
Heparin: 500 x 2
EPO: none
[2023-08-19] MEDS: ZOSYN 50 IV (13:34)
[2023-08-19] MEDS: HEPARIN 4300 UNITS INTRACATH (14:03)
--- NOTE | 2023-08-19 14:22 | W.PN.HOSP.TC ---
Addendum entered and electronically signed by Red Zamora MD 08/19/23 14:45:
D4 of Decadron 4mg q8h; Will wean to 4mg q12h today
Original Note:
Today's Communication/Plan
-
cont empiric abx
cont iv steroids
wean o2
bipap qhs, naps and as needed
transfuse 1 u prbc
HD today
Assessment / Plan
Assessment / Plan
TTE
Mild concentric left ventricular hypertrophy. Normal regional wall motion. Left ventricular ejection fraction is 75% by Pham's method.
Normal diastolic function. Normal right ventricular size and function. Trace mitral regurgitation.
Aortic sclerosis without stenosis. Mild tricuspid regurgitation.
Estimated pulmonary artery pressure of 37 mmHg, assuming a right atrial pressure of 3 mmHg. Normal pericardium without effusion.
The IVC is of normal size and demonstrates normal respiratory variation.
NO prior available for comparison
CT right foot
Findings suggesting moderate cellulitis of the dorsal right foot. No focal fluid collection to suggest abscess . Limited exam without IV contrast.
LE arterial doppler
1. Noncompressible arteries bilaterally, suggestive of medial calcinosis and/or arterial noncompliance, which makes measured ankle-brachial indices unreliable. Toe brachial indices are considered more reliable in this situation.
2. Right toe brachial index 1.03 (normal greater than 0.7). No focal arterial stenosis demonstrated. Spectral Doppler waveforms are normal to the level of ankle.
3. Left toe brachial index 1.23. No focal arterial stenosis demonstrated. Spectral Doppler waveforms are normal to the level of ankle.

# Acute on chronic hypoxic and hypercapneic respiratory failure
#B/l Pneumonia
--Patient usually on 3L to oxygen through nasal cannula at home 13/11. Was on BiPAP, now on 15L - improving last two days
-No evidence of fluid overload on imaging, proBNP unreliable as CONSTANCE on CKD;
-Stop lasix due to rising Scr
-Zosyn, add vanco
- IV steroids
-F/u cultures if expectorating
- Incentive [place]
-appreciate pulm consult
-Hold on further lasix
-Cont BiPAP nights and naps
-anxiety control
-EF 75%;
Echocardiogram report as above
#CONSTANCE on Presumed CKD stage IIIb
-stop lasix
-Gentle fluid if CT chest unremarkable
-Patient was admitted taken off of Lasix due to worsening renal function by primary top knitter 3 wks back. Patient was apparently on p.o. Lasix 40 g twice daily before.
-Bladder scan and straight cath protocol ordered
-stop ivf
-Hold on Lasix
� Nephrology consulted
� After discussion, initiating HD today
-Tunneled cath placed 08/17
#Hypernatremia
-mild, has not eaten -
-Monitor with HD
#Anemia, Acute on Chronic
� Does not appear to be actively bleeding
� Transfuse 1 unit PRBC 08/13 and 1u today 08/18
� Continue to trend CBC
� Iron saturation within normal limits, ferritin elevated
- I suspect this is due to chronic illness, Renal dysfunction
#Right foot chronic decubitus wound
-Ongoing for 2.5 yrs. Patient gets wound care at home by VN. Have been seen by podiatry in the past as well
-Infected foul-smelling purulent drainage on exam in ER
-Superficial Wound culture growing gram neg bacilli, group c streptococcus
-Lower extremity ANABELLA report as above
-CT left foot/xr did not show osteo. no abscess.
-Podiatry evaluated. continue local wound care.
-wound looks dry with healthy granulation tissue. to complete abx course today 08/13 although now on zosyn
#history of A-fib
h/o of LLE DVT
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
-can not get CT Chest PE with renal function and V/q due to pulm edema
-dvt study negative this admit
-Restart BB slowly as having most likely BB withdrawal and now with afib with RVR - add it as lopressor 25mg BID
#Essential hypertension
-Continue Norvasc; Hold valsartan
-restart BB
#FREDY
-cont bipap
-Trelegy at home
morbid obesity
bedbound
recovered type 2 diabetes - A1c 5.1
depression
GERD
DVT PPX - heparin subq
DNR/DNI
Total time spent on today's encounter was 52 minutes which included time spent in counseling the patient/family regarding diagnosis and treatment plan as listed above, goals of care, and symptom management. Case was discussed with nursing staff,
specialists, and care coordinators/case management. All labs and imaging personally reviewed by me. Remainder the time spent in detailed review of previous records, lab data, imaging, and other medical provider documentation.
Anticipated Discharge: > 48 hours
Subjective/Interval History
-
Date of Service: August 19, 2023
sleeping this am- did not get much sleep overnight
Objective Data
-
Labs:
Laboratory Results
08/19/23 08/19/23
03:40 08:39
WBC 9.8 9.8
Hgb 6.3 L* 6.7 L*
Hct 20.9 L* 21.2 L
Plt Count 112 L D 113 L
Sodium 145
Potassium 3.6
Chloride 108 H
Carbon Dioxide 22
BUN 118 H*
Creatinine 5.2 H*
Glucose 220 H
Calcium 8.4
Total Bilirubin 0.9
AST 25
ALT 14
Alkaline Phosphatase 55
Vital Signs:
Vital Signs
Temp Pulse Resp BP Pulse Ox
97.6 F 68 14 127/58 99
08/19/23 12:29 08/19/23 12:29 08/19/23 12:29 08/19/23 12:29 08/19/23 09:49
I&O
08/18/23 08/19/23 08/20/23
06:59 06:59 06:59
Intake Total 150 / 150 630 / 630 250 / 250
Balance 150 / 150 630 / 630 250 / 250
Review of Systems
-
History Source: Patient
All other systems: Not reviewed unless documented
Physical Exam
-
General: No Apparent Distress, Comfortable and Morbidly Obese
HEENT: Oxygen (15 L mid flow)
Respiratory: Rales (mild although distant)
Cardiac: Regular Rhythm and S1/S2; Negative Murmur or Rub
GI: Soft, Nontender and Nondistended
Musculoskeletal: No Edema
Neuro: Awake, Alert, Oriented, No Motor Deficits and Nonfocal/Grossly Intact
Psych: Calm
Data Reviewed
-
Diagnostic Radiology: Image personally visualized and interpreted and Report Reviewed by me
Labs: Labs Reviewed by me
[2023-08-19] MEDS: LIPITOR 40 MG PO (20:32)
[2023-08-20] VITALS (40 sets, daily range): BP systolic 115–158; BP diastolic 55–122; PULSE 2–72; BMI 37.1
[2023-08-20] MEDS: ZOSYN 50 IV ×3 (00:51→23:44)
[2023-08-20 03:59] LABS: Venous Blood Gas B.E. -0.6 mmol/L (-4 to +4); Venous Blood Gas HCO3 26.6 mmol/L (22-27); Venous Blood Gas O2 Sat % 98.2 %; Venous Blood Gas pCO2 58 mmHg (35-48); Venous Blood Gas pH 7.27 (7.32-7.43); Venous Blood Gas pO2 194 mmHg (30-50)
[2023-08-20 04:10] LABS: Venous Blood Gas O2 Therapy 13L/min
[2023-08-20 04:11] LABS: Hematocrit 22.5 % (37.0-47.0); Hemoglobin 7.2 g/dL (12.0-16.0); Mean Corpuscular Hgb 28.9 pg (27.0-31.0); Mean Corpuscular Volume 90.4 fL (81.0-99.0); Mean Platelet Volume 11.5 fL (7.4-10.4); Platelet Count 102 10^3/uL (130-400); Red Blood Cell Count 2.49 10^6/uL (4.20-5.40); Red Cell Dist. Width 15.6 % (11.5-14.5); White Blood Cell Count 14.4 10^3/uL (4.8-10.8)
[2023-08-20 04:42] LABS: ALT (SGPT) 14 U/L (0-35); AST (SGOT) 19 U/L (14-36); Albumin 3.1 g/dl (3.5-5.0); Alkaline Phosphatase 65 U/L (38-126); Blood Urea Nitrogen 72 mg/dl (7-17); Carbon Dioxide 26 mmol/L (22-30); Chloride 105 mmol/L (98-107); Estimated Creatinine Clearance 17 ml/min; Glucose 211 mg/dl (70-99); Potassium 3.2 mmol/L (3.5-5.1); Sodium 141 mmol/L (135-145); Total Bilirubin 0.6 mg/dl (0.2-1.3); Total Protein 5.6 g/dl (6.3-8.2); eGFR 12.53
[2023-08-20 04:47] LABS: Vancomycin Random 20.7 ug/ml
--- NOTE | 2023-08-20 06:43 | PTCARENOTE ---
Pt drowsy but arousable; able to sleep overnight. Swallowed pills whole in water w/o issues. No urine output overnight. Tolerated BiPap HS. Pt desats to low 80s if Bipap mask has leak. Refused repositioning; education provided. Plan for HD session
today. Call green within reach.
--- NOTE | 2023-08-20 07:53 | PHA.VAN.FU ---
Vancomycin Assessment / Plan
- Assessment
Renal Function: SCR Decreasing
Hemodialysis Schedule: Other (Pt started HD. Unsure of schedule.)
WBC's are: Trending Up
In the past 24 hrs, patient has been: Afebrile
Concomitant Antimicrobials: Piperacillin/Tazobactam
- Assessment - Therapeutic Drug Monitoring
Random Level: 08/19 20.7
- Dosing Plan
Dosing by Level: Hold off on dosing today
- Monitoring Plan
Random Level: 08/20 @0600
- Follow Up
Pharmacy will continue to follow.
Vancomycin Follow UP
- -
Patient Age: 73
Patient Sex: Female
Vancomycin Day #: 6
Indication: Pulmonary/Respiratory
Requesting Provider: Dr. Choi
Pertinent Antimicrobial Allergies:
NKDA
Height / Weight:
Height 5 ft 6 in
Actual Weight 104.2 kg
Pertinent Past Medical History: BMI ~38, CKD, DM2
- Vital Signs / Lab Results
Temp Pulse Resp BP Pulse Ox
97.3 F 61 19 126/61 94
08/20/23 07:14 08/20/23 06:00 08/20/23 06:00 08/20/23 06:00 08/20/23 04:00
Lab Results - Hematology
08/18/23 08/19/23 08/19/23
04:50 03:40 08:39
WBC 8.7 9.8 9.8
08/20/23
03:51
WBC 14.4 H
Lab Results - Chemistry
08/18/23 08/19/23 08/20/23
04:50 03:40 03:51
BUN 104 H* 118 H* 72 H
Creatinine 5.4 H* 5.2 H* 3.7 H
Estimated Creat Clear 12 12 17
Albumin 3.5 3.3 L 3.1 L
Therapeutic Drug Monitoring
Random Vancomycin 20.7 ug/ml 08/20/23 03:51
[2023-08-20] MEDS: DECADRON 4 MG IV ×2 (09:17→20:08)
[2023-08-20] MEDS: LOPRESSOR 25 MG PO ×2 (09:17→20:08)
[2023-08-20] MEDS: FEOSOL 325 MG PO (09:17)
[2023-08-20] MEDS: PROTONIX 40 MG PO (09:18)
[2023-08-20] MEDS: VITAMIN D3 (cholecalciferol) 50 MCG PO (09:18)
[2023-08-20] MEDS: HEPARIN 5000 UNITS SC ×2 (09:18→20:07)
[2023-08-20] MEDS: VITAMIN C 250 MG PO (09:18)
[2023-08-20] MEDS: ZOLOFT 50 MG PO (09:18)
[2023-08-20] MEDS: NORVASC 5 MG PO (09:18)
--- NOTE | 2023-08-20 09:20 | W.PN.HOSP.TC ---
Today's Communication/Plan
-
Continue steroids
Stop vancomycin. continue Zosyn
Continue weaning oxygen off as needed
Assessment / Plan
Assessment / Plan
TTE
Mild concentric left ventricular hypertrophy. Normal regional wall motion. Left ventricular ejection fraction is 75% by Pham's method.
Normal diastolic function. Normal right ventricular size and function. Trace mitral regurgitation.
Aortic sclerosis without stenosis. Mild tricuspid regurgitation.
Estimated pulmonary artery pressure of 37 mmHg, assuming a right atrial pressure of 3 mmHg. Normal pericardium without effusion.
The IVC is of normal size and demonstrates normal respiratory variation.
NO prior available for comparison
CT right foot
Findings suggesting moderate cellulitis of the dorsal right foot. No focal fluid collection to suggest abscess . Limited exam without IV contrast.
LE arterial doppler
1. Noncompressible arteries bilaterally, suggestive of medial calcinosis and/or arterial noncompliance, which makes measured ankle-brachial indices unreliable. Toe brachial indices are considered more reliable in this situation.
2. Right toe brachial index 1.03 (normal greater than 0.7). No focal arterial stenosis demonstrated. Spectral Doppler waveforms are normal to the level of ankle.
3. Left toe brachial index 1.23. No focal arterial stenosis demonstrated. Spectral Doppler waveforms are normal to the level of ankle.

# Acute on chronic hypoxic and hypercapnic respiratory failure
#B/l Pneumonia
-Patient hypercapnic respiratory failure has been improved and on BiPAP at night.
-Patient has been started on hemodialysis to volume optimize
-CT chest 08/11 images reviewed and patient have bilateral infiltrates. Maintained on Zosyn. Vancomycin has been discontinued.
-Patient started on IV steroids empirically as well.
-Pulmonology following and help appreciated.
#CONSTANCE on Presumed CKD stage IIIb
-Patient was taken off of Lasix 3 weeks before this hospitalization due to worsening renal function.
-Patient having significant hypoxia and was concerning for pulmonary edema, patient failed trial of IV Lasix therapy.
-Nephrology discussed with patient and has been started on hemodialysis.
#Hypernatremia
-mild, has not eaten -
-Monitor with HD
#Acute on chronic anemia
� Does not appear to be actively bleeding
� s/p 2 u PRBC this admit
� Iron saturation within normal limits, ferritin elevated
- check stool for occult blood
- suspecting anemia from renal disease
#Right foot chronic decubitus wound
-Ongoing for 2.5 yrs. Patient gets wound care at home by VN. Have been seen by podiatry in the past as well
-Infected foul-smelling purulent drainage on exam in ER
-Superficial Wound culture growing gram neg bacilli, group c streptococcus
-Lower extremity ANABELLA report as above
-CT left foot/xr did not show osteo. no abscess.
-Podiatry evaluated. continue local wound care.
-wound looks dry with healthy granulation tissue. Patient finished course for wound infection.
#history of A-fib
h/o of LLE DVT
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
-can not get CT Chest PE with renal function and V/q due to pulm edema
-dvt study negative this admit
-Heart rate controlled with oral Lopressor therapy.
#Essential hypertension
-Maintain on Lopressor. Hold Norvasc/valsartan
#FREDY
-cont bipap
-Trelegy at home
# h/o Type II DM
-Record diabetic with hemoglobin A1c of 5.1. Not on any meds at home
-start on mod ISS as BG uncontrolled with steroids need.
morbid obesity
bedbound
depression
GERD
DVT PPX - heparin subq
DNR/DNI
Anticipated Discharge: > 48 hours
Subjective/Interval History
-
Date of Service: August 20, 2023
Resting comfortably in bed
Remains on 15L oxygen through mid flow
denies sob/chest pain
Objective Data
-
Labs:
Laboratory Results
08/20/23
03:51
WBC 14.4 H
Hgb 7.2 L
Hct 22.5 L
Plt Count 102 L
Sodium 141
Potassium 3.2 L
Chloride 105
Carbon Dioxide 26
BUN 72 H
Creatinine 3.7 H
Glucose 211 H
Calcium 8.0 L
Total Bilirubin 0.6
AST 19
ALT 14
Alkaline Phosphatase 65
Vital Signs:
Vital Signs
Temp Pulse Resp BP Pulse Ox
97.3 F 61 19 126/61 94
08/20/23 07:14 08/20/23 06:00 08/20/23 06:00 08/20/23 06:00 08/20/23 04:00
I&O
08/19/23 08/20/23 08/21/23
06:59 06:59 06:59
Intake Total 630 / 630 540 / 540
Balance 630 / 630 540 / 540
Review of Systems
-
Respiratory: Reports No Symptoms
Cardiac: Reports No Symptoms
Abdomen/GI: Reports No Symptoms
Physical Exam
-
General: No Apparent Distress, Comfortable and Morbidly Obese
HEENT: Oxygen (15 L mid flow)
Respiratory: Clear to Auscultation (Apical lung, )
Cardiac: Regular Rhythm and S1/S2; Negative Murmur or Rub
GI: Soft, Nontender and Nondistended
Musculoskeletal: No Edema
Skin: Other (Right dorsal foot wound with dressing)
Neuro: Awake, Alert, Oriented, No Motor Deficits and Nonfocal/Grossly Intact
Psych: Calm
[2023-08-20] MEDS: ProAmatine 5 MG PO (11:26)
[2023-08-20] MEDS: MANNITOL 12.5 GRAMS IV ×2 (12:48→13:50)
[2023-08-20] MEDS: RETACRIT 10000 UNITS IV (13:29)
--- NOTE | 2023-08-20 15:13 | W.PN.NEPH.HD ---
Assessment
-
pt seen during HD
vitals stable
improving resp status on NC , BIPAP at night
high dose MARIA T
HD again tomorrow
CVC functions well
HD unit placement
Progress Note - Hemodialysis
-
Date of Service: August 20, 2023
Duration: 3 hours
Potassium Bath: 4
Calcium Bath: 2.5
Opti-Dialyzer: 160
Ultrafiltration: Other (2kg)
Blood Flow: 300
Dialysate Flow: 600
Heparin: no
EPO: [id number]
--- NOTE | 2023-08-20 15:25 | W.PN.PUL3 ---
Today's Communication / Plan
-
Continue supportive care
Wean oxygen as able
No change in steroids
Remains on Zosyn, encourage airway clearance
Check chest x-ray 08/20
Assessment
-
Assessment:
Mrs Anahi Long is a 73/W adm - with 2-3 d h/o worsening dyspnea in setting of chronic hypoxic resp failure on home O2 at 3L and multiple comorbidities. At ER, POx 87% on O2 2L, deemed in ac/chronic HF, started on diuretic. Reportedly partial
use and sometimes refusal of BPAP as inpatient. Increasing O2 requirement from chronic baseline 3 L, ABG with respiratory acidosis and hypoxemia on O2 15L, resumed BPAP (currently at 14/6 c 10L O2), diuretic discontinued, atbs changed to zosyn (on
atbs since adm with interim changes as mentioned below), transferred to IMU, pulm consulted.
First DH adm
Impression:
Acute on chronic hypoxemia/hypercarbia requiring noninvasive mechanical ventilation.
On home ventilator trilogy for last 1.5 y
Acute hypercarbia, respiratory acidosis - likely OHS in setting of ADHF and volume overload from CONSTANCE
Bilateral pneumonia
No baseline CXR or CTs for comparison
HFpEF, off outpatient diuretic for 3 wks [employer] due to A/CKI
Anemia, severe. Unknown baseline
A/CKD [employer], off furosemide by outpatient nephrology 3 wks [employer]
MRSA negative
Elevated D-dimer (likely due to severe infection, kidney disease)
Elevated BNP
Normal troponin
Normal TSH
Conditions [employer]:
Chronic hypoxemia/hypercarbia, on home ventilator trilogy for last 1.[address] Carter at [facility]
HFpEF
CKD stage IIIb
AFib not on AC due to hemorrhagic CVA late 2021 (warfarin initiated for LLE DVT but d/c upon CVA)
LLE DVT
FREDY/OHS on trilogy and O2 3.5-4L for last 1.5 y, reports partial compliance with 4-5 h use max for last 6 m
Pneumonia, Feb 2021, Jan 2022, adm to [facility]
HTN
GERD
Chronic R foot decubitus ulcer
Bedbound state
Depression
Morbid obesity
Non-smoker
DNR
Plan:
Unfortunately, patient respiratory status remains tenuous, remains on 12 L mid flow as of this morning
Tolerated BiPAP overnight
Tolerating HD at this time
Chest x-ray and CT chest confirmed bilateral infiltrates, pneumonia
Moving forward
Continue with supportive care
Continue BiPAP at night, attempt weaning of oxygen
Will obtain chest x-ray 08/20
No further ABGs will be performed.
Dr. Choi had discussed with at the bedside 08/16/2023: DNR status.
Morphine as needed started for increased work of breathing.
Cannot rule out noninfectious etiology. Cryptogenic pneumonia/DAH/etc.
Given worsening hypoxemia, poor air movement, IV dexamethasone was started on 08/15/2023. Wean slowly no change for now.
Patient is at baseline bedbound. Poor baseline conditioning.
Anemia noted
Given possible lung injury process minimize transfusion as able, maintain greater than 7
Remains on antibiotics, Zosyn therapy continues
MRSA screening negative
All cultures negative.
Foot wound ulcer: Polymicrobial.
Unable to produce sputum
Influenza negative
Covid neg
Chronic R foot decubitus ulcer.
Podiatry following
Does not probe to bone, no tunneling found
ANABELLA normal
Culture gram-negative bacilli/group C streptococcus via wound Cx from 08-08-2023
Management per primary team.
Needs to follow with pulm after d/c, follows Dr Carter at [facility]
Case discussed with nephrology and primary team 08/16/2023.
Dr. Choi had previously spoke to , and updated him at bedside on 08/16/2023, poor prognosis. He would like to continue with medical care for now, okay with morphine if patient has increased work of breathing
-
High risk situation/guarded prognosis
I spoke with the at bedside 08/19
Subjective Data
-
Date of Service:
Date of Service: August 20, 2023
Chief Complaint: Pulmonary Follow Up (Bilateral pneumonia/acute on chronic hypoxemic/hypercapnic respiratory failure.)
Subjective:
Patient is currently undergoing dialysis. She denies any shortness of breath, chest pain. She does have a productive cough. Denies nausea, emesis. at bedside. Tolerated BiPAP overnight. Still remains on 12 L mid flow
Objective Data
Data Reviewed
Vital Signs / I&O / Oxygen:
Vital Signs
Temp Pulse Resp BP Pulse Ox
96.7 F L 61 16 118/68 96
08/20/23 12:11 08/20/23 14:30 08/20/23 14:30 08/20/23 14:30 08/20/23 14:30
Intake and Output
08/19/23 08/20/23 08/21/23
06:59 06:59 06:59
Intake Total 630 / 630 540 / 540 240 / 240
Balance 630 / 630 540 / 540 240 / 240
SaO2 96
Nasal Cannula flow liters per 15
minute
Physical Exam
General: Comfortable, Other (Morbidly obese) and Other (Right anterior chest HD catheter)
HEENT: Normocephalic and Anicteric
Cardiovascular: S1-S2, Regular Rhythm, Murmur (n), Rub (n) and Peripheral Edema (+1 lower extremity edema)
Respiratory: Wheeze (n), Crackles (Negative), Rhonchi (Scattered) and Non-Labored Respirations
GI: Soft, Distended (obese), Non Tender and Normal Bowel Sounds
Neurology: Awake, Alert and No Motor Deficits
Skin: Cyanosis (n), Jaundice (n) and Rash (n)
Labs/Micro/Reports
Lab Data
08/20/23 03:51
08/20/23 03:51
Microbiology
08/12/23 19:40 Blood/Venous Blood Culture - Final
No Growth - Final Report
08/12/23 17:24 Blood/Venous Blood Culture - Final
No Growth - Final Report
[2023-08-20] MEDS: HEPARIN 4300 UNITS INTRACATH (15:26)
--- NOTE | 2023-08-20 15:37 | PTCARENOTE ---
Patient transferred to IMU from 3rd floor due to diarrhea, cdiff, illeus. Patient denying pain or nausea upon arrival to unit. Stating that she feels much better after enema. Patient is NPO, given ice chips. Tachycardic in the 120s, blood pressure
96/48. Family at bedside talking to doctors regarding plan of care.
[2023-08-20 16:59] LABS: Glucose - Point of Care 166 mg/dl (70-99)
[2023-08-20] MEDS: NOVOLOG FLEXPEN-MODERATE RESISTANCE 1 UNITS SC (17:05)
--- NOTE | 2023-08-20 18:36 | PTCARENOTE ---
Patient is awake, alert and oriented today, eating majority of meals, compliant with plan of care. 12 liters mid flow, pulse ox 93%. Patient received dialysis today, tolerated well. Wound care provided to right lower extrelity. Pateint denying pain
when asked. In good spirits with at bedside.
[2023-08-20] MEDS: LIPITOR 40 MG PO (20:08)
[2023-08-20 20:20] LABS: Hepatitis B Surface Antigen Negative (Negative)
[2023-08-20 20:38] LABS: Hepatitis B Core Ab, Total Negative (Negative); Hepatitis B Surface Antibody Negative; Hepatitis C Antibody Negative (Negative)
[2023-08-20 22:14] LABS: Glucose - Point of Care 174 mg/dl (70-99)
[2023-08-21] VITALS (33 sets, daily range): BP systolic 132–178; BP diastolic 61–127; PULSE 2–80; BMI 36.5
[2023-08-21 04:30] LABS: Hemoglobin 7.4 g/dL (12.0-16.0); Mean Corp Hgb Conc. 32.2 g/dL (33.0-37.0); Mean Corpuscular Hgb 28.5 pg (27.0-31.0); Mean Corpuscular Volume 88.5 fL (81.0-99.0); Mean Platelet Volume 11.2 fL (7.4-10.4); Platelet Count 107 10^3/uL (130-400); Red Cell Dist. Width 15.2 % (11.5-14.5); White Blood Cell Count 17.9 10^3/uL (4.8-10.8)
--- NOTE | 2023-08-21 05:08 | PTCARENOTE ---
Pt woke c/o visual hallucinations, disoriented to place and time. Pt was easily reoriented, but continues to c/o seeing people that are not there. Pt requested bipap be removed, This RN transitioned pt from bipap to midflow 12L. ZONING ASSISTANT notified of pt
condition.
[2023-08-21 05:15] LABS: ALT (SGPT) 13 U/L (0-35); AST (SGOT) 28 U/L (14-36); Albumin 3.4 g/dl (3.5-5.0); Alkaline Phosphatase 79 U/L (38-126); Blood Urea Nitrogen 42 mg/dl (7-17); Calcium 8.4 mg/dl (8.4-10.2); Carbon Dioxide 26 mmol/L (22-30); Chloride 99 mmol/L (98-107); Estimated Creatinine Clearance 27 ml/min; Glucose 170 mg/dl (70-99); Potassium 3.7 mmol/L (3.5-5.1); Sodium 136 mmol/L (135-145); Total Bilirubin 1.1 mg/dl (0.2-1.3); Total Protein 5.9 g/dl (6.3-8.2); eGFR 22.17
[2023-08-21 08:12] LABS: Glucose - Point of Care 165 mg/dl (70-99)
[2023-08-21] MEDS: NOVOLOG FLEXPEN-MODERATE RESISTANCE 1 UNITS SC (08:37)
[2023-08-21] MEDS: ProAmatine 5 MG PO (08:38)
[2023-08-21] MEDS: RETACRIT 10000 UNITS IV (08:56)
[2023-08-21] MEDS: HEPARIN 4200 UNITS INTRACATH (11:12)
[2023-08-21] MEDS: VITAMIN C 250 MG PO (11:52)
[2023-08-21] MEDS: FEOSOL 325 MG PO (11:52)
[2023-08-21] MEDS: ZOLOFT 50 MG PO (11:52)
[2023-08-21] MEDS: VITAMIN D3 (cholecalciferol) 50 MCG PO (11:52)
[2023-08-21] MEDS: PROTONIX 40 MG PO (11:52)
[2023-08-21] MEDS: NOVOLOG FLEXPEN-MODERATE RESISTANCE SC (11:53)
[2023-08-21] MEDS: DECADRON 4 MG IV ×2 (11:55→20:18)
[2023-08-21] MEDS: HEPARIN 5000 UNITS SC ×2 (11:55→20:19)
[2023-08-21] MEDS: ZOSYN 50 IV ×2 (11:55→22:56)
[2023-08-21] MEDS: LOPRESSOR 25 MG PO ×2 (11:56→20:19)
[2023-08-21 11:59] LABS: Glucose - Point of Care 111 mg/dl (70-99)
--- NOTE | 2023-08-21 12:00 | W.PN.NEPH.HD ---
Assessment
-
pt seen during HD
vitals stable but tachy which limiting UF
wean down O2 as tolerated
CVC functions well
follow h/h and WBC
next HD on
no heparin due to low plt
Progress Note - Hemodialysis
-
Date of Service: August 21, 2023
Duration: 30 minutes and 3 hours
Potassium Bath: 3
Calcium Bath: 2.5
Opti-Dialyzer: 160
Ultrafiltration: Other (1.5kg)
Blood Flow: 350
Dialysate Flow: 600
Heparin: no
EPO: [id number]
--- NOTE | 2023-08-21 13:55 | W.PN.HOSP.TC ---
Today's Communication/Plan
-
continue wean off o2
continue steroids/abx
night time seroquel
Assessment / Plan
Assessment / Plan
TTE
Mild concentric left ventricular hypertrophy. Normal regional wall motion. Left ventricular ejection fraction is 75% by Pham's method.
Normal diastolic function. Normal right ventricular size and function. Trace mitral regurgitation.
Aortic sclerosis without stenosis. Mild tricuspid regurgitation.
Estimated pulmonary artery pressure of 37 mmHg, assuming a right atrial pressure of 3 mmHg. Normal pericardium without effusion.
The IVC is of normal size and demonstrates normal respiratory variation.
NO prior available for comparison
CT right foot
Findings suggesting moderate cellulitis of the dorsal right foot. No focal fluid collection to suggest abscess . Limited exam without IV contrast.
LE arterial doppler
1. Noncompressible arteries bilaterally, suggestive of medial calcinosis and/or arterial noncompliance, which makes measured ankle-brachial indices unreliable. Toe brachial indices are considered more reliable in this situation.
2. Right toe brachial index 1.03 (normal greater than 0.7). No focal arterial stenosis demonstrated. Spectral Doppler waveforms are normal to the level of ankle.
3. Left toe brachial index 1.23. No focal arterial stenosis demonstrated. Spectral Doppler waveforms are normal to the level of ankle.

# Acute on chronic hypoxic and hypercapnic respiratory failure
#B/l Pneumonia
-Patient hypercapnic respiratory failure has been improved and on BiPAP at night.
-Patient has been started on hemodialysis to volume optimize
-CT chest 08/11 images reviewed and patient have bilateral infiltrates. Maintained on Zosyn. Vancomycin has been discontinued.
-Patient started on IV steroids empirically as well.
-Pulmonology following and help appreciated.
#CONSTANCE on Presumed CKD stage IIIb
-Patient was taken off of Lasix 3 weeks before this hospitalization due to worsening renal function.
-Patient having significant hypoxia and was concerning for pulmonary edema, patient failed trial of IV Lasix therapy.
-Nephrology discussed with patient and has been started on hemodialysis.
#Hypernatremia
-Monitor with HD
#Visual hallucination
-reported at night time
-provide night time Seroquel
-discontinued Dilaudid, have not gotten dose in 72hrs.
-steroid also possibly playing role
#Acute on chronic anemia
� Does not appear to be actively bleeding
� s/p 2 u PRBC this admit
� Iron saturation within normal limits, ferritin elevated
- check stool for occult blood
- suspecting anemia from renal disease
#Right foot chronic decubitus wound
-Ongoing for 2.5 yrs. Patient gets wound care at home by VN. Have been seen by podiatry in the past as well
-Infected foul-smelling purulent drainage on exam in ER
-Superficial Wound culture growing gram neg bacilli, group c streptococcus
-Lower extremity ANABELLA report as above
-CT left foot/xr did not show osteo. no abscess.
-Podiatry evaluated. continue local wound care.
-wound looks dry with healthy granulation tissue. Patient finished course for wound infection.
#history of A-fib
h/o of LLE DVT
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
-can not get CT Chest PE with renal function and V/q due to pulm edema
-dvt study negative this admit
-Heart rate controlled with oral Lopressor therapy.
#Essential hypertension
-Maintain on Lopressor. Hold Norvasc/valsartan
#FREDY
-cont bipap
-Trelegy at home
# h/o Type II DM
-Record diabetic with hemoglobin A1c of 5.1. Not on any meds at home
-start on mod ISS as BG uncontrolled with steroids need.
morbid obesity
bedbound
depression
GERD
DVT PPX - heparin subq
DNR/DNI
Anticipated Discharge: > 48 hours
Subjective/Interval History
-
Date of Service: August 21, 2023
o2 requirement down to 12L
patient reported hallucination overnight , seeing people in room
afebrile
Objective Data
-
Labs:
Laboratory Results
08/21/23
04:04
WBC 17.9 H
Hgb 7.4 L
Hct 23.0 L
Plt Count 107 L
Sodium 136
Potassium 3.7
Chloride 99
Carbon Dioxide 26
BUN 42 H
Creatinine 2.3 H
Glucose 170 H
Calcium 8.4
Total Bilirubin 1.1
AST 28
ALT 13
Alkaline Phosphatase 79
Vital Signs:
Vital Signs
Temp Pulse Resp BP Pulse Ox
98.4 F 116 23 154/127 94
08/21/23 07:15 08/21/23 13:00 08/21/23 13:00 08/21/23 13:00 08/21/23 12:00
I&O
08/20/23 08/21/23 08/22/23
06:59 06:59 06:59
Intake Total 540 / 540 530 / 530
Balance 540 / 540 530 / 530
Review of Systems
-
Respiratory: Reports Cough; Denies Trouble Breathing
Cardiac: Reports No Symptoms
Abdomen/GI: Reports No Symptoms
Physical Exam
-
General: No Apparent Distress, Comfortable and Morbidly Obese
HEENT: Oxygen (12 L mid flow)
Respiratory: Rhonchi
Cardiac: Regular Rhythm and S1/S2; Negative Murmur or Rub
GI: Soft, Nontender and Nondistended
Musculoskeletal: No Edema
Skin: Other (Right dorsal foot wound with dressing)
Neuro: Awake, Alert, Oriented, No Motor Deficits and Nonfocal/Grossly Intact
Psych: Calm
--- NOTE | 2023-08-21 14:15 | W.PN.PUL3 ---
Today's Communication / Plan
-
Sport bed with lateral percussion, rotation 3 times daily
Continue with antibiotics, airway clearance
Agree with doxycycline
Will consider bedside bronchoscopy in the next 24 to 48 hours as clinically indicated
No change in steroids for now
Assessment
-
Assessment:
Mrs Anahi Long is a 73/W adm 08-07 with 2-3 d h/o worsening dyspnea in setting of chronic hypoxic resp failure on home O2 at 3L and multiple comorbidities. At ER, POx 87% on O2 2L, deemed in ac/chronic HF, started on diuretic. Reportedly partial
use and sometimes refusal of BPAP as inpatient. Increasing O2 requirement from chronic baseline 3 L, ABG with respiratory acidosis and hypoxemia on O2 15L, resumed BPAP (currently at 14/6 c 10L O2), diuretic discontinued, atbs changed to zosyn (on
atbs since adm with interim changes as mentioned below), transferred to IMU, pulm consulted.
First DH adm
Impression:
Acute on chronic hypoxemia/hypercarbia requiring noninvasive mechanical ventilation.
On home ventilator trilogy for last 1.5 y
Acute hypercarbia, respiratory acidosis - likely OHS in setting of ADHF and volume overload from CONSTANCE
Bilateral pneumonia
No baseline CXR or CTs for comparison
HFpEF, off outpatient diuretic for 3 wks [employer]ILRO[employer] due to A/CKI
Anemia, severe. Unknown baseline
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
MRSA negative
Elevated D-dimer (likely due to severe infection, kidney disease)
Elevated BNP
Normal troponin
Normal TSH
Conditions [employer]RO[employer]ER:
Chronic hypoxemia/hypercarbia, on home ventilator trilogy for last 1.[address] Carter at [facility]
HFpEF
CKD stage IIIb
AFib not on AC due to hemorrhagic CVA late 2021 (warfarin initiated for LLE DVT but d/c upon CVA)
LLE DVT
FREDY/OHS on trilogy and O2 3.5-4L for last 1.5 y, reports partial compliance with 4-5 h use max for last 6 m
Pneumonia, Feb 2021, Jan 2022, adm to [facility]
HTN
GERD
Chronic R foot decubitus ulcer
Bedbound state
Depression
Morbid obesity
Non-smoker
DNR
Plan:
Unfortunately, patient respiratory status remains tenuous, remains on 12 L mid flow, 90% saturation
Tolerated BiPAP overnight only for few hours
Status post HD 08/19
Chest x-ray today with worsening right lower lobe process, persistent left lung process, slightly improved right upper lobe process
Have not made any progress with regards to weaning oxygen
Moving forward
Continue with supportive care
Continue BiPAP at night, attempt weaning of oxygen
Chest x-ray may be lagging clinical improvement, difficult to determine
Remains on Zosyn therapy
Would recommend more aggressive airway clearance
Will request to sport bed with appropriate lateral rotation and chest percussion
Agree with adding doxycycline
If does not improve in the next 24 hours, will consider bronchoscopy for better culture
MRSA screening negative
All cultures negative.
Foot wound ulcer: Polymicrobial.
Unable to produce sputum
Influenza negative
Covid neg
No further ABGs will be performed.
Dr. Choi had discussed with at the bedside 08/16/2023: DNR status.
Morphine as needed started for increased work of breathing.
Cannot rule out noninfectious etiology. Cryptogenic pneumonia/DAH/etc.
Given worsening hypoxemia, poor air movement, IV dexamethasone was started on 08/15/2023. No change for now
Leukocytosis likely secondary to steroids
Patient is at baseline bedbound. Poor baseline conditioning.
Anemia noted
Given possible lung injury process minimize transfusion as able, maintain greater than 7
Chronic R foot decubitus ulcer.
Podiatry following
Does not probe to bone, no tunneling found
ANABELLA normal
Culture gram-negative bacilli/group C streptococcus via wound Cx from 08-08-2023
Management per primary team.
Needs to follow with pulm after d/c, follows Dr Carter at [place]
Case discussed with nephrology and primary team 08/16/2023.
Dr. Choi had previously spoke to , and updated him at bedside on 08/16/2023, poor prognosis. He would like to continue with medical care for now, okay with morphine if patient has increased work of breathing
I spoke with the at bedside 08/20, reviewed with primary service, respiratory care
Remains high risk situation
Subjective Data
-
Date of Service:
Date of Service: August 21, 2023
Chief Complaint: Pulmonary Follow Up (Bilateral pneumonia/acute on chronic hypoxemic/hypercapnic respiratory failure.)
Subjective:
Patient is subjectively improved. Still with rhonchorous cough. Denies hemoptysis, chest pain, nausea, abdominal pain. at bedside. confirms he feels patient has improved.
Objective Data
Data Reviewed
Vital Signs / I&O / Oxygen:
Vital Signs
Temp Pulse Resp BP Pulse Ox
98.4 F 116 23 154/127 94
08/21/23 07:15 08/21/23 13:00 08/21/23 13:00 08/21/23 13:00 08/21/23 12:00
Intake and Output
08/20/23 08/21/23 08/22/23
06:59 06:59 06:59
Intake Total 540 / 540 530 / 530
Balance 540 / 540 530 / 530
SaO2 94
Nasal Cannula flow liters per 15
minute
Physical Exam
General: Comfortable, Other (Morbidly obese) and Other (Right anterior chest HD catheter)
HEENT: Normocephalic and Anicteric
Cardiovascular: S1-S2, Regular Rhythm, Murmur (n), Rub (n) and Peripheral Edema (+1 lower extremity edema)
Respiratory: Wheeze (n), Crackles (Negative), Rhonchi (Scattered, worse with cough), Non-Labored Respirations and Stridor (n)
GI: Soft, Distended (obese), Non Tender and Normal Bowel Sounds
Neurology: Awake, Alert and No Motor Deficits
Skin: Cyanosis (n), Jaundice (n) and Rash (n)
Labs/Micro/Reports
Lab Data
08/21/23 04:04
08/21/23 04:04
[2023-08-21] MEDS: VIBRAMYCIN 100 MG PO (16:09)
--- NOTE | 2023-08-21 16:30 | CM ---
Patient with Dx Acute on chronic hypoxic respiratory failure, PNA, CONSTANCE, Anemia, Right foot chronic decubitus wound. O2 12L midflow. BiPAP. Receiving HD - Tunneled RIJ hemodialysis catheter.
Message with Dr Ramos; plan is for HD to continue after discharge.
Met with patient and Javi; the patient and want patient to return home with outpatient dialysis. wants to tour [facility] HD facilities and decide which one he wants- asked him to please let CM know
by tomorrow so referral can be made, which can take several days for approval, and he agrees. Discussions ensued about transport to HD with O2 and with patient's bedbound status. has already contacted patient's insurance requesting
insurance coverage for ambulance transport to HD. made aware that SW at dialysis can help with ongoing transport issues. Patient/ would like VN again and Palliative Care to resume.
Referral to [facility].
Plan continue to follow patient's O2 needs.
Plan contact tomorrow re; Outpatient HD facility preference.
[2023-08-21 16:59] LABS: Glucose - Point of Care 221 mg/dl (70-99)
[2023-08-21] MEDS: NOVOLOG FLEXPEN-MODERATE RESISTANCE 3 UNITS SC (17:22)
[2023-08-21] MEDS: LIPITOR 40 MG PO (20:19)
[2023-08-21 22:04] LABS: Glucose - Point of Care 212 mg/dl (70-99)
[2023-08-21] MEDS: VIBRAMYCIN PO ×2 (22:56→23:01)
[2023-08-21] MEDS: SEROQUEL 25 MG PO (22:56)
[2023-08-22] VITALS (15 sets, daily range): BP systolic 101–172; BP diastolic 44–73; PULSE 2–93; BMI 36.3
--- NOTE | 2023-08-22 03:08 | PTCARENOTE ---
Received pt at change of shift. Pt AAOx3. Able to take all meds scheduled for 20:00. Pt put on BiPAP prior to 22:00 medications given. Able to take Seroquel as ordered but pt unable to follow directions in swallowing her doxycycline (see JUN).
Placed back on BiPAP. Pt denies any hallucinations this shift. Resting in bed with call green in reach.
[2023-08-22 07:45] LABS: Glucose - Point of Care 190 mg/dl (70-99)
--- NOTE | 2023-08-22 08:15 | W.PN.HOSP.TC ---
Today's Communication/Plan
-
see note
Assessment / Plan
Assessment / Plan
TTE
Mild concentric left ventricular hypertrophy. Normal regional wall motion. Left ventricular ejection fraction is 75% by Pham's method.
Normal diastolic function. Normal right ventricular size and function. Trace mitral regurgitation.
Aortic sclerosis without stenosis. Mild tricuspid regurgitation.
Estimated pulmonary artery pressure of 37 mmHg, assuming a right atrial pressure of 3 mmHg. Normal pericardium without effusion.
The IVC is of normal size and demonstrates normal respiratory variation.
NO prior available for comparison
CT right foot
Findings suggesting moderate cellulitis of the dorsal right foot. No focal fluid collection to suggest abscess . Limited exam without IV contrast.
LE arterial doppler
1. Noncompressible arteries bilaterally, suggestive of medial calcinosis and/or arterial noncompliance, which makes measured ankle-brachial indices unreliable. Toe brachial indices are considered more reliable in this situation.
2. Right toe brachial index 1.03 (normal greater than 0.7). No focal arterial stenosis demonstrated. Spectral Doppler waveforms are normal to the level of ankle.
3. Left toe brachial index 1.23. No focal arterial stenosis demonstrated. Spectral Doppler waveforms are normal to the level of ankle.

# Acute on chronic hypoxic and hypercapnic respiratory failure
# B/l Pneumonia
-Patient hypercapnic respiratory failure has been improved and on BiPAP at night.
-Patient has been started on hemodialysis to volume optimize
-CT chest 08/11 images reviewed and patient have bilateral infiltrates. Maintained on Zosyn. Vancomycin has been discontinued.
-Patient started on IV steroids empirically as well.
-Discussed with pulmonology and possibly being considered for bronchoscopy
#CONSTANCE on Presumed CKD stage IIIb
-Patient was taken off of Lasix 3 weeks before this hospitalization due to worsening renal function.
-Patient having significant hypoxia and was concerning for pulmonary edema, patient failed trial of IV Lasix therapy.
-Nephrology discussed with patient and has been started on hemodialysis.
#Hypernatremia
-Monitor with HD
#Visual hallucination
-reported at night time
-discontinued Dilaudid, have not gotten dose in 72hrs.
-steroid also possibly playing role
-patient somnolent with seroquel 25mg at night, changed to 12.5 mg for tonight. EKG qtc 455ms.
#Acute on chronic anemia
� Does not appear to be actively bleeding
� s/p 2 u PRBC this admit
� Iron saturation within normal limits, ferritin elevated
- suspecting anemia from renal disease
#Right foot chronic decubitus wound
-Ongoing for 2.5 yrs. Patient gets wound care at home by VN. Have been seen by podiatry in the past as well
-Infected foul-smelling purulent drainage on exam in ER
-Superficial Wound culture growing gram neg bacilli, group c streptococcus
-Lower extremity ANABELLA report as above
-CT left foot/xr did not show osteo. no abscess.
-Podiatry evaluated. continue local wound care.
-wound looks dry with healthy granulation tissue. Patient finished course for wound infection.
#history of A-fib
h/o of LLE DVT
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
-can not get CT Chest PE with renal function and V/q due to pulm edema
-dvt study negative this admit
-Heart rate controlled with oral Lopressor therapy.
#Essential hypertension
-Maintain on Lopressor. Hold Norvasc/valsartan
#FREDY
-cont bipap at night time
-Trelegy at home
# h/o Type II DM
-Record diabetic with hemoglobin A1c of 5.1. Not on any meds at home
-start on mod ISS as BG uncontrolled with steroids need.
morbid obesity
bedbound
depression
GERD
DVT PPX - heparin subq
DNR/DNI
Remains at high risk for pulmonary complication.
Anticipated Discharge: > 48 hours
Subjective/Interval History
-
Date of Service: August 22, 2023
patient on BiPAP/somnolent
no reported problems overnight
Objective Data
-
Labs:
Laboratory Results
08/22/23
07:59
Sodium Pending
Potassium Pending
Chloride Pending
Carbon Dioxide Pending
BUN Pending
Creatinine Pending
Glucose Pending
Calcium Pending
Vital Signs:
Vital Signs
Temp Pulse Resp BP Pulse Ox
97.7 F 83 18 142/64 92
08/22/23 07:35 08/22/23 06:00 08/22/23 06:00 08/22/23 06:00 08/22/23 05:05
I&O
08/21/23 08/22/23 08/23/23
06:59 06:59 06:59
Intake Total 530 / 530 530 / 530
Balance 530 / 530 530 / 530
Review of Systems
-
Unable to obtain full review of systems at this time due to: Other (somnolent)
Physical Exam
-
General: No Apparent Distress, Comfortable and Morbidly Obese
HEENT: Oxygen (on BiPAP)
Respiratory: Rhonchi
Cardiac: Regular Rhythm and S1/S2; Negative Murmur or Rub
GI: Soft, Nontender and Nondistended
Musculoskeletal: No Edema
Skin: Other (Right dorsal foot wound with dressing)
Neuro: Negative Awake or Alert
Psych: Calm
--- NOTE | 2023-08-22 08:38 | W.PN.NEPH.PH ---
Today's Communication / Plan
-
Attempt dialysis with higher UF tomorrow
Assessment/Plan
-
Impression:
Bilateral PNA
Acute kidney injury
CKD stage IV (3.0) on 06/16
Diabetes
Chronic Right foot wound (wound culture notes GNB/ group c strep)
Hypertension
Acidemia :acute on chronic chronic hypoxic respiratory failure/metabolic acidosis
Atrial fibrillation
History of hemorrhagic CVA
History of left leg DVT
Morbid obesity
Obstructive sleep apnea on CPAP
Hypercapnic respiratory
Anemia
Plan:
Hd tomorrow
will attempt more aggressive u/f as hemodynamically tolerated tomorrow
previous discussion with and patient.
We previously had reviewed dialysis and its impact on QoL. He reported that given her already fairly low quality of life is unlikely that initiation of dialysis may worsen this even more. He says that she has otherwise been tolerating this current
level of life style. He believes that she could be able to go to dialysis 3 times weekly from home with transportation. I emphasized that if she is unable to get to the driveway transportation does not enter the home. He says that they have a
Jason lift.
I am skeptical that this will be a practical solution. I told him that overall I am not in favor of dialysis given the poor long-term practicality. He says that he typically has help to get her from a Jason lift from the bed to a wheelchair.
Nurses aides typically can return later on to help him get her back into a Jason lift back to bed. This will clearly be required 3 times weekly if they were to do dialysis as an outpatient. I am not convinced that this will be practical long-term.
However, department appears to be minimally improved at this time and they would like to see if this will continue to improve further. Therefore we will start dialysis at this time in order to allow for more evaluation of her oxygen requirements.
I did tell him quite frankly that 4 L, which she is already chronically on, may even be too high for an outpatient dialysis unit to manage. He understands this restriction. Unless she is able to improve her oxygen requirements, she may be unable
to do dialysis as an outpatient and this would lead to a hospice situation.
-
-
Date of Service: August 22, 2023
CC / HPI / ROS
-
Chief Complaint:
CONSTANCE
History of Present Illness:
CONSTANCE CKD 4 now on HD
Hgb low 7.4 still
BP stable
Review of Systems:
no CP
bedbound
Weights down
On BiPAP
Labs
-
Labs:
WBC 17.9 10^3/uL (4.8-10.8) H 08/21/23 04:04
RBC 2.60 10^6/uL (4.20-5.40) L 08/21/23 04:04
Hgb 7.4 g/dL (12.0-16.0) L 08/21/23 04:04
Hct 23.0 % (37.0-47.0) L 08/21/23 04:04
Plt Count 107 10^3/uL (130-400) L 08/21/23 04:04
eGFR 22.17 08/21/23 04:04
Gyz-B-Xluoypsahwk Pept 11234 pg/ml 08/17/23 05:16
Albumin 3.4 g/dl (3.5-5.0) L 08/21/23 04:04
Physical Exam
-
Vital Signs:
Vital Signs
Temp Pulse Resp BP Pulse Ox
97.7 F 83 18 142/64 92
08/22/23 07:35 08/22/23 06:00 08/22/23 06:00 08/22/23 06:00 08/22/23 05:05
Cardiovascular:: Regular rate and rhythm
Respiratory:: Bilateral: Coarse and Bilateral: Wheeze
Lung Excursion:: Normal
Abdomen:: Nontender
Bowel Sounds:: Normal
Red Catheter: No
[2023-08-22] MEDS: NOVOLOG FLEXPEN-MODERATE RESISTANCE 1 UNITS SC ×3 (08:40→17:42)
[2023-08-22] MEDS: HEPARIN 5000 UNITS SC ×2 (08:41→19:55)
[2023-08-22] MEDS: DECADRON 4 MG IV ×2 (08:43→19:54)
[2023-08-22 09:45] LABS: Blood Urea Nitrogen 28 mg/dl (7-17); Calcium 8.5 mg/dl (8.4-10.2); Carbon Dioxide 29 mmol/L (22-30); Chloride 99 mmol/L (98-107); Estimated Creatinine Clearance 30 ml/min; Glucose 152 mg/dl (70-99); Potassium 3.1 mmol/L (3.5-5.1); Sodium 134 mmol/L (135-145); eGFR 24.73
[2023-08-22] MEDS: FEOSOL 325 MG PO (10:01)
[2023-08-22] MEDS: PROTONIX 40 MG PO (10:02)
[2023-08-22] MEDS: VITAMIN D3 (cholecalciferol) 50 MCG PO (10:02)
[2023-08-22] MEDS: VITAMIN C 250 MG PO (10:02)
[2023-08-22] MEDS: VIBRAMYCIN 100 MG PO ×2 (10:02→19:56)
[2023-08-22] MEDS: LOPRESSOR 25 MG PO ×2 (10:02→19:56)
[2023-08-22] MEDS: ZOLOFT 50 MG PO (10:03)
[2023-08-22] MEDS: ZOSYN 50 IV ×2 (11:03→23:28)
[2023-08-22 12:22] LABS: Glucose - Point of Care 173 mg/dl (70-99)
--- NOTE | 2023-08-22 14:09 | CM ---
Patient with Dx Acute on chronic hypoxic respiratory failure, PNA, CONSTANCE, Anemia, Right foot chronic decubitus wound. O2 12L midflow. BiPAP. Receiving HD - Tunneled RIJ hemodialysis catheter.
Spoke with patient's Javi; has selected [facility].
Spoke with [facility]; initiated referral for [facility]. They only have MWF schedule available between 3:30 to 6pm start time and will let CM know which chair time is assigned. Clinical info sent as requested via Active Fax.
Plan continue to follow patient's O2 needs.
Plan follow up with re; transport arrangements for HD.
Plan follow up with [facility] for clearance for outpatient HD.
--- NOTE | 2023-08-22 16:15 | W.PN.PUL3 ---
Today's Communication / Plan
-
Continue with airway clearance
Continue with nocturnal CPAP
Minimize sedation
Chest x-ray in a.m.
Possible bronchoscopy 5/3 depending on clinical course
Assessment
-
Assessment:
Mrs Anahi Long is a 73/W adm - with 2-3 d h/o worsening dyspnea in setting of chronic hypoxic resp failure on home O2 at 3L and multiple comorbidities. At ER, POx 87% on O2 2L, deemed in ac/chronic HF, started on diuretic. Reportedly partial
use and sometimes refusal of BPAP as inpatient. Increasing O2 requirement from chronic baseline 3 L, ABG with respiratory acidosis and hypoxemia on O2 15L, resumed BPAP (currently at 14/6 c 10L O2), diuretic discontinued, atbs changed to zosyn (on
atbs since adm with interim changes as mentioned below), transferred to IMU, pulm consulted.
First DH adm
Impression:
Acute on chronic hypoxemia/hypercarbia requiring noninvasive mechanical ventilation.
On home ventilator trilogy for last 1.5 y
Acute hypercarbia, respiratory acidosis - likely OHS in setting of ADHF and volume overload from CONSTANCE
Bilateral pneumonia
No baseline CXR or CTs for comparison
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
Anemia, severe. Unknown baseline
A/CKD [employer]CHASING ENGINEER, off furosemide by outpatient nephrology 3 wks PURCHASING ENGINEER
MRSA negative
Elevated D-dimer (likely due to severe infection, kidney disease)
Elevated BNP
Normal troponin
Normal TSH
Conditions PURCHASING ENGINEER:
Chronic hypoxemia/hypercarbia, on home ventilator trilogy for last 1.[address] Carter at [facility]
HFpEF
CKD stage IIIb
AFib not on AC due to hemorrhagic CVA late 2021 (warfarin initiated for LLE DVT but d/c upon CVA)
LLE DVT
FREDY/OHS on trilogy and O2 3.5-4L for last 1.5 y, reports partial compliance with 4-5 h use max for last 6 m
Pneumonia, Feb 2021, Jan 2022, adm to [facility]
HTN
GERD
Chronic R foot decubitus ulcer
Bedbound state
Depression
Morbid obesity
Non-smoker
DNR
Plan:
Unfortunately, patient respiratory status remains tenuous, remains on 12 L mid flow, 90% saturation
Tolerated BiPAP overnight
Hemodialysis continues
Chest x-ray today with worsening right lower lobe process, persistent left lung process, slightly improved right upper lobe process
Have not made any progress with regards to weaning oxygen
Moving forward
Continue with supportive care
Continue BiPAP at night, attempt weaning of oxygen
Chest x-ray may be lagging clinical improvement, difficult to determine
Remains on Zosyn therapy, doxycycline
Continue with aggressive airway clearance
sport bed with appropriate lateral rotation and chest percussion
Repeat chest x-ray in a.m.
If does not improve in the next 24 hours, will consider bronchoscopy for better culture. This would be high risk
MRSA screening negative
All cultures negative.
Foot wound ulcer: Polymicrobial.
Unable to produce sputum
Influenza negative
Covid neg
No further ABGs will be performed.
Dr. Choi had discussed with at the bedside 08/16/2023: DNR status.
Morphine as needed started for increased work of breathing.
Cannot rule out noninfectious etiology. Cryptogenic pneumonia/DAH/etc.
Given worsening hypoxemia, poor air movement, IV dexamethasone was started on 08/15/2023. No change for now
Leukocytosis likely secondary to steroids
Patient is at baseline bedbound. Poor baseline conditioning.
Anemia noted
Given possible lung injury process minimize transfusion as able, maintain greater than 7
Chronic R foot decubitus ulcer.
Podiatry following
Does not probe to bone, no tunneling found
ANABELLA normal
Culture gram-negative bacilli/group C streptococcus via wound Cx from 08-08-2023
Management per primary team.
Needs to follow with pulm after d/c, follows Dr Carter at [facility]
Case discussed with nephrology and primary team 08/16/2023.
Dr. Choi had previously spoke to , and updated him at bedside on 08/16/2023, poor prognosis. He would like to continue with medical care for now, okay with morphine if patient has increased work of breathing
I spoke with the at bedside 08/20, reviewed with primary service, respiratory care
Remains high risk situation
Subjective Data
-
Date of Service:
Date of Service: August 22, 2023
Chief Complaint: Pulmonary Follow Up (Bilateral pneumonia/acute on chronic hypoxemic/hypercapnic respiratory failure.)
Subjective:
Patient is very sleepy but arousable. He does have a cough when encouraged. She denies shortness of breath, chest pain, nausea
Objective Data
Data Reviewed
Vital Signs / I&O / Oxygen:
Vital Signs
Temp Pulse Resp BP Pulse Ox
97.9 F 66 16 172/66 90
08/22/23 11:40 08/22/23 10:02 08/22/23 10:00 08/22/23 10:02 08/22/23 10:00
Intake and Output
08/21/23 08/22/23 08/23/23
06:59 06:59 06:59
Intake Total 530 / 530 530 / 530 50 / 50
Balance 530 / 530 530 / 530 50 / 50
SaO2 90
Nasal Cannula flow liters per 15
minute
Physical Exam
General: Comfortable, Other (Morbidly obese) and Other (Right anterior chest HD catheter)
HEENT: Normocephalic and Anicteric
Cardiovascular: S1-S2, Regular Rhythm, Murmur (n), Rub (n) and Peripheral Edema (+1 lower extremity edema)
Respiratory: Wheeze (n), Crackles (Negative), Rhonchi (Scattered, worse with cough), Non-Labored Respirations and Stridor (n)
GI: Soft, Distended (obese), Non Tender and Normal Bowel Sounds
Neurology: Lethargic (Arousable, answers questions, coughs on command)
Skin: Cyanosis (n), Jaundice (n) and Rash (n)
Labs/Micro/Reports
Lab Data
08/21/23 04:04
08/22/23 09:01
[2023-08-22 17:55] LABS: Glucose - Point of Care 191 mg/dl (70-99)
[2023-08-22 21:57] LABS: Glucose - Point of Care 170 mg/dl (70-99)
[2023-08-22] MEDS: SEROQUEL 12.5 MG PO (22:07)
[2023-08-22] MEDS: LIPITOR 40 MG PO (22:07)
[2023-08-23] VITALS (37 sets, daily range): BP systolic 74–164; BP diastolic 47–82; PULSE 2–85; BMI 36.2
[2023-08-23 04:59] LABS: Blood Urea Nitrogen 36 mg/dl (7-17); Calcium 8.7 mg/dl (8.4-10.2); Carbon Dioxide 29 mmol/L (22-30); Chloride 98 mmol/L (98-107); Estimated Creatinine Clearance 23 ml/min; Glucose 139 mg/dl (70-99); Potassium 3.8 mmol/L (3.5-5.1); Sodium 133 mmol/L (135-145); eGFR 18.29
--- NOTE | 2023-08-23 06:07 | PTCARENOTE ---
Pt drowsy, but arousable throughout shift. Bipap in place throughout shift, pt was noted to desat as low as 80% on several occasions, but recovered without intervention. SaO2 waxed and waned throughout the night from 80% to 97%. When woken, pt
denied SOB or dyspnea. Pt did refuse turning schedule at times. Education provided about importance of turning and pressure relief. Call green within reach.
[2023-08-23 08:05] LABS: Glucose - Point of Care 137 mg/dl (70-99)
[2023-08-23] MEDS: VITAMIN D3 (cholecalciferol) PO (08:42)
[2023-08-23] MEDS: VIBRAMYCIN PO (08:42)
[2023-08-23] MEDS: ZOLOFT PO (08:42)
[2023-08-23] MEDS: FEOSOL PO (08:42)
[2023-08-23] MEDS: LOPRESSOR PO (08:42)
[2023-08-23] MEDS: VITAMIN C PO (08:42)
[2023-08-23] MEDS: PROTONIX PO (08:42)
[2023-08-23] MEDS: NOVOLOG FLEXPEN-MODERATE RESISTANCE SC ×3 (08:42→17:54)
--- NOTE | 2023-08-23 08:44 | PTCARENOTE ---
Pt received from material handler 2nd shift. Very obtunded and remains on bipap. Morning PO medications held d/t mental status- Dr. La notified via TT.
[2023-08-23] MEDS: HEPARIN 5000 UNITS SC ×2 (09:02→20:43)
[2023-08-23] MEDS: DECADRON 4 MG IV ×2 (09:02→20:41)
--- NOTE | 2023-08-23 09:06 | RESPNOTE ---
CPT done VIA sport bed as ordered.
[2023-08-23 12:01] LABS: Glucose - Point of Care 125 mg/dl (70-99)
[2023-08-23] MEDS: ProAmatine 5 MG PO (12:11)
--- NOTE | 2023-08-23 12:13 | W.PN.HOSP.TC ---
Today's Communication/Plan
-
continue steroids/abx
wean off o2 as possible
stop night time seroquel
Assessment / Plan
Assessment / Plan
TTE
Mild concentric left ventricular hypertrophy. Normal regional wall motion. Left ventricular ejection fraction is 75% by Pham's method.
Normal diastolic function. Normal right ventricular size and function. Trace mitral regurgitation.
Aortic sclerosis without stenosis. Mild tricuspid regurgitation.
Estimated pulmonary artery pressure of 37 mmHg, assuming a right atrial pressure of 3 mmHg. Normal pericardium without effusion.
The IVC is of normal size and demonstrates normal respiratory variation.
NO prior available for comparison
CT right foot
Findings suggesting moderate cellulitis of the dorsal right foot. No focal fluid collection to suggest abscess . Limited exam without IV contrast.
LE arterial doppler
1. Noncompressible arteries bilaterally, suggestive of medial calcinosis and/or arterial noncompliance, which makes measured ankle-brachial indices unreliable. Toe brachial indices are considered more reliable in this situation.
2. Right toe brachial index 1.03 (normal greater than 0.7). No focal arterial stenosis demonstrated. Spectral Doppler waveforms are normal to the level of ankle.
3. Left toe brachial index 1.23. No focal arterial stenosis demonstrated. Spectral Doppler waveforms are normal to the level of ankle.

# Acute on chronic hypoxic and hypercapnic respiratory failure
# B/l Pneumonia
-Patient hypercapnic respiratory failure has been improved and on BiPAP at night.
-Patient has been started on hemodialysis to volume optimize
-CT chest 08/11 images reviewed and patient have bilateral infiltrates. Maintained on Zosyn. Vancomycin has been discontinued.
-Patient started on IV steroids empirically as well.
-Discussed with pulmonology and possibly being considered for bronchoscopy
#CONSTANCE on Presumed CKD stage IIIb
-Patient was taken off of Lasix 3 weeks before this hospitalization due to worsening renal function.
-Patient having significant hypoxia and was concerning for pulmonary edema, patient failed trial of IV Lasix therapy.
-Nephrology discussed with patient and has been started on hemodialysis.
#Hypernatremia
-Monitor with HD
#Visual hallucination
-reported at night time
-discontinued Dilaudid, have not gotten dose in 72hrs.
-steroid also possibly playing role
-Patient was provided 12.5mg of Seroquel although could not tolerate and was somnolent in the morning. Holding further Seroquel today. Patient stated of not having any further hallucination episodes.
#Acute on chronic anemia
� Does not appear to be actively bleeding
� s/p 2 u PRBC this admit
� Iron saturation within normal limits, ferritin elevated
- suspecting anemia from renal disease
#Right foot chronic decubitus wound
-Ongoing for 2.5 yrs. Patient gets wound care at home by VN. Have been seen by podiatry in the past as well
-Infected foul-smelling purulent drainage on exam in ER
-Superficial Wound culture growing gram neg bacilli, group c streptococcus
-Lower extremity ANABELLA report as above
-CT left foot/xr did not show osteo. no abscess.
-Podiatry evaluated. continue local wound care.
-wound looks dry with healthy granulation tissue. Patient finished course for wound infection.
#history of A-fib
h/o of LLE DVT
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
-can not get CT Chest PE with renal function and V/q due to pulm edema
-dvt study negative this admit
-Heart rate controlled with oral Lopressor therapy.
#Essential hypertension
-Maintain on Lopressor. Hold Norvasc/valsartan
#FREDY
-cont bipap at night time
-Trelegy at home
# h/o Type II DM
-Record diabetic with hemoglobin A1c of 5.1. Not on any meds at home
-start on mod ISS as BG uncontrolled with steroids need.
morbid obesity
bedbound
depression
GERD
DVT PPX - heparin subq
DNR/DNI
Remains at high risk for pulmonary complication.
Anticipated Discharge: > 48 hours
Subjective/Interval History
-
Date of Service: August 23, 2023
Patient somnolent/sedated in the morning
Able to tolerate BiPAP
Oxygenation remains borderline requiring 10 to 12 L through mid flow
Objective Data
-
Labs:
Laboratory Results
08/23/23
04:18
Sodium 133 L
Potassium 3.8
Chloride 98
Carbon Dioxide 29
BUN 36 H
Creatinine 2.7 H
Glucose 139 H
Calcium 8.7
Vital Signs:
Vital Signs
Temp Pulse Resp BP Pulse Ox
97.8 F 76 19 145/59 92
08/23/23 07:30 08/23/23 06:00 08/23/23 06:00 08/23/23 06:00 08/23/23 11:06
I&O
08/22/23 08/23/23 08/24/23
06:59 06:59 06:59
Intake Total 530 / 530 200 / 200
Balance 530 / 530 200 / 200
Review of Systems
-
Respiratory: Reports No Symptoms
Cardiac: Reports No Symptoms
Abdomen/GI: Reports No Symptoms
Physical Exam
-
General: No Apparent Distress, Comfortable and Morbidly Obese
HEENT: Oxygen (on BiPAP)
Respiratory: Rhonchi
Cardiac: Regular Rhythm and S1/S2; Negative Murmur or Rub
GI: Soft, Nontender and Nondistended
Musculoskeletal: No Edema
Skin: Other (Right dorsal foot wound with dressing)
Neuro: Awake, Alert and No Motor Deficits
Psych: Calm
--- NOTE | 2023-08-23 13:00 | W.PN.NEPH.HD ---
Assessment
-
Patient seen on HD
sb[ 149 after 10mg midodrine pre hD
pushing u/f to 2.5kg
monitor hemodynamics
lopressor IV prn for tachycardia provided
Progress Note - Hemodialysis
-
Date of Service: August 23, 2023
Duration: 30 minutes and 3 hours
Potassium Bath: 3
Calcium Bath: 2.5
Opti-Dialyzer: 160
Ultrafiltration: Other (2-2.5kg)
Blood Flow: 400
Dialysate Flow: 600
Heparin: none
EPO: 10K
--- NOTE | 2023-08-23 13:40 | WOUNDNOTE ---
RIGHT DORSAL FOOT
--- NOTE | 2023-08-23 13:41 | WOUNDNOTE ---
RIGHT DORSAL FOOT
--- NOTE | 2023-08-23 14:08 | CM ---
CM following re: discharge planning.
Reviewed pt's chart, met with pt and pt's at bedside.
Pt's stated that he has been taking care of his spouse for the past 5 years and provides total care. Pt's stated that pt is bed bound. known to [facility] and Palliative care. Pt's is aware of the plan to secure a bed at [facility]
[place] outpatient HD treatment center. Pt's stated he called [facility] and was told that ambulance transportation will be approved per request. Pt's stated that they do not have children, have relatives and [place].
Pt's stated that pt was before at [facility] and they did not have a good experience. Pt's stated that pt has Trilogy machine and uses it at night, and pt has home O2 and was 3-4 L NC at baseline.
Pt's requested pt returns back home with [facility]. palliative care and outpatient HD treatment at [facility]. CM will arrange ambulance transport and will be working on insurance approval for first 2 weeks.
CM called [facility], spoke to financial services representative Hayden and was told that everyone left for today and he suggested to call tomorrow morning. CM will follow up with [facility] outpatient HD treatment on accepting the pt/ per , [facility]
[place] has bed dialysis.
D/C plan: home with [facility], Palliative care, outpatient HD treatment at [facility] and support.
CM will follow to assist pt with a safe discharge plan.
--- NOTE | 2023-08-23 14:25 | W.PN.PUL3 ---
Today's Communication / Plan
-
Continue with airway clearance measures
No change in steroids
Continue antibiotics
Repeat chest x-ray 08/25
Possible bronchoscopy 08/26, however chest x-ray is improved today which is encouraging
Assessment
-
Assessment:
Mrs Anahi Long is a 73/W adm 08-07 with 2-3 d h/o worsening dyspnea in setting of chronic hypoxic resp failure on home O2 at 3L and multiple comorbidities. At ER, POx 87% on O2 2L, deemed in ac/chronic HF, started on diuretic. Reportedly partial
use and sometimes refusal of BPAP as inpatient. Increasing O2 requirement from chronic baseline 3 L, ABG with respiratory acidosis and hypoxemia on O2 15L, resumed BPAP (currently at 14/6 c 10L O2), diuretic discontinued, atbs changed to zosyn (on
atbs since adm with interim changes as mentioned below), transferred to IMU, pulm consulted.
First DH adm
Impression:
Acute on chronic hypoxemia/hypercarbia requiring noninvasive mechanical ventilation.
On home ventilator trilogy for last 1.5 y
Acute hypercarbia, respiratory acidosis - likely OHS in setting of ADHF and volume overload from CONSTANCE
Bilateral pneumonia
No baseline CXR or CTs for comparison
HFpEF, off outpatient diuretic for 3 wks [employer] due to A/CKI
Anemia, severe. Unknown baseline
A/CKD [employer], off furosemide by outpatient nephrology 3 wks [facility]
MRSA negative
Elevated D-dimer (likely due to severe infection, kidney disease)
Elevated BNP
Normal troponin
Normal TSH
Conditions [facility]:
Chronic hypoxemia/hypercarbia, on home ventilator trilogy for last 1.[address] Carter at [facility]
HFpEF
CKD stage IIIb
AFib not on AC due to hemorrhagic CVA late 2021 (warfarin initiated for LLE DVT but d/c upon CVA)
LLE DVT
FREDY/OHS on trilogy and O2 3.5-4L for last 1.5 y, reports partial compliance with 4-5 h use max for last 6 m
Pneumonia, Feb 2021, Jan 2022, adm to [facility]
HTN
GERD
Chronic R foot decubitus ulcer
Bedbound state
Depression
Morbid obesity
Non-smoker
DNR
Plan:
At this time, there is no significant improvement in oxygen requirement. Still on mid flow 12 L, 96%
However chest x-ray today shows significant improvement in left lung and right apical lung aeration. There is still persistent right lower lobe consolidation
Continues with hemodialysis
Moving forward
Continue with supportive care
Continue BiPAP at night, attempt weaning of oxygen
Chest x-ray may be lagging clinical improvement, difficult to determine, although chest x-ray 5/2 is improved
Remains on Zosyn therapy, doxycycline
Continue with aggressive airway clearance
Continue sport bed with appropriate lateral rotation and chest percussion
Repeat chest x-ray 08/25
If has persistent secretions and abnormal chest x-ray, may consider bronchoscopy 5/6 for airway clearance
However, based on improvement in chest x-ray, hopefully continued aggressive airway clearance will help
MRSA screening negative
All cultures negative.
Foot wound ulcer: Polymicrobial.
Unable to produce sputum
Influenza negative
Covid neg
No further ABGs will be performed.
Dr. Choi had discussed with at the bedside 08/16/2023: DNR status.
Morphine as needed started for increased work of breathing.
Cannot rule out noninfectious etiology. Cryptogenic pneumonia/DAH/etc.
Given worsening hypoxemia, poor air movement, IV dexamethasone was started on 08/15/2023. No change for now
Leukocytosis likely secondary to steroids
Maintain current dosing of steroids till chest x-ray 5/5 is assessed
Patient is at baseline bedbound. Poor baseline conditioning.
Anemia noted
Given possible lung injury process minimize transfusion as able, maintain greater than 7, trending up
Chronic R foot decubitus ulcer.
Podiatry following
Does not probe to bone, no tunneling found
ANABELLA normal
Culture gram-negative bacilli/group C streptococcus via wound Cx from 08-08-2023
Management per primary team.
Needs to follow with pulm after d/c, follows Dr Carter at [place] [facility]
Case discussed with nephrology and primary team 08/16/2023.
Dr. Choi had previously spoke to , and updated him at bedside on 08/16/2023, poor prognosis. He would like to continue with medical care for now, okay with morphine if patient has increased work of breathing
I spoke with the at bedside 08/20, reviewed with primary service, respiratory care
Remains high risk situation
Subjective Data
-
Date of Service:
Date of Service: August 23, 2023
Chief Complaint: Pulmonary Follow Up (Bilateral pneumonia/acute on chronic hypoxemic/hypercapnic respiratory failure.)
Subjective:
Patient examined earlier today. Sleeping on BiPAP. Volumes range between 450 and 650
Objective Data
Data Reviewed
Vital Signs / I&O / Oxygen:
Vital Signs
Temp Pulse Resp BP Pulse Ox
97.8 F 85 18 149/82 91
08/23/23 07:30 08/23/23 13:00 08/23/23 13:00 08/23/23 13:00 08/23/23 13:00
Intake and Output
08/22/23 08/23/23 08/24/23
06:59 06:59 06:59
Intake Total 530 / 530 200 / 200
Balance 530 / 530 200 / 200
SaO2 91
Nasal Cannula flow liters per 10
minute
Physical Exam
General: Comfortable, Other (Morbidly obese) and Other (Right anterior chest HD catheter)
HEENT: Normocephalic
Cardiovascular: S1-S2, Regular Rhythm, Murmur (n), Rub (n) and Peripheral Edema (+1 lower extremity edema)
Respiratory: Wheeze (n), Crackles (Negative), Rhonchi (Scattered, worse with cough), Non-Labored Respirations and Stridor (n)
GI: Soft, Distended (obese), Non Tender and Normal Bowel Sounds
Neurology: Lethargic (sleeping with BiPAP in place)
Skin: Cyanosis (n), Jaundice (n) and Rash (n)
Labs/Micro/Reports
Lab Data
08/21/23 04:04
08/23/23 04:18
[2023-08-23] MEDS: RETACRIT 10000 UNITS IV (14:29)
[2023-08-23] MEDS: MANNITOL 12.5 GRAMS IV (14:31)
--- NOTE | 2023-08-23 14:52 | WOUNDNOTE ---
[facility] RN NOTE: Patient visited to follow up on right dorsal chronic foot wound. Patient seen by podiatry on 08/07 and at that time local daily wound care was ordered. At time of assessment, wound base is light pink with a small amount of
serosanguineous drainage and no odor noted. Per chart review, wound is 2.5 years old and patient has completed antibiotics and TBI of right toe 1.03, no abscess noted on CT scan. Picture and assessment of wound sent to Dr. Dubose for review via
TT. Patient could not be turned for sacral assessment due to BIPAP and current HD. JLUIS Russ given update. Will continue to follow as needed.
[2023-08-23] MEDS: ZOSYN IV (15:04)
[2023-08-23] MEDS: ZOSYN 50 IV (15:10)
[2023-08-23] MEDS: HEPARIN 4300 UNITS INTRACATH (15:26)
--- NOTE | 2023-08-23 16:17 | PTCARENOTE ---
Pt becoming alert intermittently, yet drowsy overall. On and off bipap by RT. Sats high 80-low 90's. Able to tolerate some small PO intake when alert. Tolerated HD. Q2T as tolerated, pt yells out with slight positioning adjustments and occasionally
refuses turns. at bedside. Safe environment maintained.
--- NOTE | 2023-08-23 16:33 | VNURNOTE ---
Home Health Liaison met with patient's spouse Javi at 1545 to discuss [facility] nurse/therapy, visits, schedule and homebound status. Javi is agreeable and understands that visits at home will be 2-3 x per week to assess and teach medical management.
Javi has a private caregiver 3x week able to assist.
[facility] brochure provided with contact information. Javi is aware that [facility] will contact them for start of care in 1-2 days after discharge from .
[facility] referral completed in [facility].
[2023-08-23 17:55] LABS: Glucose - Point of Care 133 mg/dl (70-99)
[2023-08-23] MEDS: VIBRAMYCIN 100 MG PO (20:44)
[2023-08-23] MEDS: LIPITOR 40 MG PO (20:44)
[2023-08-23] MEDS: LOPRESSOR 25 MG PO (20:45)
[2023-08-23 22:44] LABS: Glucose - Point of Care 115 mg/dl (70-99)
--- NOTE | 2023-08-23 23:41 | SUR.OPER ---
Pt has complaints of Hip pain when repositioned with head up and down, but dissipates after a moment. She is alert and oriented when awoken and is cooperative. She swallowed her pills whole with water. She wants to rest tonight as she was
sleepy. Presently wearing her Bipap and tolerating it well Monitor is NSR and occasional sinus tachycardia. Rotation feature of bed turned on and she is tolerating it well.
[2023-08-24] VITALS (26 sets, daily range): BP systolic 96–157; BP diastolic 53–85; PULSE 2–150; BMI 35.0
[2023-08-24] MEDS: LOPRESSOR 5 MG IV ×2 (02:24→12:39)
[2023-08-24] MEDS: ZOSYN 50 IV (05:02)
--- NOTE | 2023-08-24 05:16 | PTCARENOTE ---
Addendum entered by Kim Feliciano RN 08/24/23 05:17:
BP stable and pt given Lopressor 5mg with a gradual drop in her heart rate to 113. Remains on bipap for the night. ALGOLOGIST notified of the Atrial fibrillation. Will contact her if there is further need for rate control.
Original Note:
At 0225 pt noted to go into atrial fibrillation witn= RVR with Ventricular rate of 150.
[2023-08-24 06:27] LABS: Hematocrit 21.8 % (37.0-47.0); Mean Corp Hgb Conc. 31.7 g/dL (33.0-37.0); Mean Corpuscular Volume 91.6 fL (81.0-99.0); Mean Platelet Volume 12.1 fL (7.4-10.4); Platelet Count 152 10^3/uL (130-400); Red Blood Cell Count 2.38 10^6/uL (4.20-5.40); Red Cell Dist. Width 15.9 % (11.5-14.5); White Blood Cell Count 20.8 10^3/uL (4.8-10.8)
--- NOTE | 2023-08-24 06:38 | PTCARENOTE ---
Pt remains in atrial fib. She was incontinent of a large BM and was turned and linens changed. She tolerated it well . BP 96/57, has no complaints.
[2023-08-24 06:56] LABS: Blood Urea Nitrogen 25 mg/dl (7-17); Calcium 8.8 mg/dl (8.4-10.2); Carbon Dioxide 27 mmol/L (22-30); Chloride 98 mmol/L (98-107); Estimated Creatinine Clearance 30 ml/min; Glucose 123 mg/dl (70-99); Potassium 3.7 mmol/L (3.5-5.1); Sodium 132 mmol/L (135-145); eGFR 26.22
[2023-08-24 07:15] LABS: Hemoglobin 6.9 g/dL (12.0-16.0)
[2023-08-24] MEDS: PROTONIX 40 MG PO (09:09)
[2023-08-24] MEDS: VITAMIN D3 (cholecalciferol) 50 MCG PO (09:09)
[2023-08-24] MEDS: FEOSOL 325 MG PO (09:09)
[2023-08-24] MEDS: ZOLOFT 50 MG PO (09:09)
[2023-08-24] MEDS: VIBRAMYCIN 100 MG PO ×2 (09:09→19:56)
[2023-08-24] MEDS: LOPRESSOR 25 MG PO (09:09)
[2023-08-24] MEDS: VITAMIN C 250 MG PO (09:09)
[2023-08-24] MEDS: HEPARIN 5000 UNITS SC ×2 (09:09→19:55)
[2023-08-24] MEDS: DECADRON 4 MG IV ×2 (09:10→19:55)
[2023-08-24 09:52] LABS: Glucose - Point of Care 124 mg/dl (70-99)
[2023-08-24] MEDS: TYLENOL 650 MG PO ×3 (09:53→22:04)
[2023-08-24] MEDS: NOVOLOG FLEXPEN-MODERATE RESISTANCE SC ×2 (09:58→13:22)
--- NOTE | 2023-08-24 12:01 | W.PN.NEPH.PH ---
Today's Communication / Plan
-
HD tomorrow
Assessment/Plan
-
Impression:
Bilateral PNA
Acute kidney injury
CKD stage IV (3.0) on 06/16
Diabetes
Chronic Right foot wound (wound culture notes GNB/ group c strep)
Hypertension
Acidemia :acute on chronic chronic hypoxic respiratory failure/metabolic acidosis
Atrial fibrillation
History of hemorrhagic CVA
History of left leg DVT
Morbid obesity
Obstructive sleep apnea on CPAP
Hypercapnic respiratory
Anemia
Plan:
Hd tomorrow
will attempt more aggressive u/f as hemodynamically tolerated tomorrow
add low dose midodrine and additional midodrine with HD
need better HR control, on low dose BB-titrate up as needed
hb low, prn trasnfusion
wean O2 as can tolerate still on 15lit, bronch per pulm
We reviewed again that her O2 requirement needs to be better for her to place out pt HD
see discussion below
previous discussion with and patient.
We previously had reviewed dialysis and its impact on QoL. He reported that given her already fairly low quality of life is unlikely that initiation of dialysis may worsen this even more. He says that she has otherwise been tolerating this current
level of life style. He believes that she could be able to go to dialysis 3 times weekly from home with transportation. I emphasized that if she is unable to get to the driveway transportation does not enter the home. He says that they have a
Jason lift.
I am skeptical that this will be a practical solution. I told him that overall I am not in favor of dialysis given the poor long-term practicality. He says that he typically has help to get her from a Jason lift from the bed to a wheelchair.
Nurses aides typically can return later on to help him get her back into a Jason lift back to bed. This will clearly be required 3 times weekly if they were to do dialysis as an outpatient. I am not convinced that this will be practical long-term.
However, department appears to be minimally improved at this time and they would like to see if this will continue to improve further. Therefore we will start dialysis at this time in order to allow for more evaluation of her oxygen requirements.
I did tell him quite frankly that 4 L, which she is already chronically on, may even be too high for an outpatient dialysis unit to manage. He understands this restriction. Unless she is able to improve her oxygen requirements, she may be unable
to do dialysis as an outpatient and this would lead to a hospice situation.
-
-
Date of Service: August 24, 2023
CC / HPI / ROS
-
Chief Complaint:
CONSTANCE
History of Present Illness:
CONSTANCE CKD 4 now on HD
Hgb low 6.9
BP soft, tachycardic
Review of Systems:
no CP
bedbound
Weights down
On 15lit O2
Labs
-
Labs:
WBC 20.8 10^3/uL (4.8-10.8) H 08/24/23 05:42
RBC 2.38 10^6/uL (4.20-5.40) L 08/24/23 05:42
Hgb 6.9 g/dL (12.0-16.0) L* 08/24/23 05:42
Hct 21.8 % (37.0-47.0) L 08/24/23 05:42
Plt Count 152 10^3/uL (130-400) D 08/24/23 05:42
Sodium 132 mmol/L (135-145) L 08/24/23 05:42
Potassium 3.7 mmol/L (3.5-5.1) 08/24/23 05:42
Chloride 98 mmol/L (98-107) 08/24/23 05:42
Carbon Dioxide 27 mmol/L (22-30) 08/24/23 05:42
BUN 25 mg/dl (7-17) H 08/24/23 05:42
Creatinine 2.0 mg/dL (0.6-1.0) H 08/24/23 05:42
eGFR 26.22 08/24/23 05:42
Glucose 123 mg/dl (70-99) H 08/24/23 05:42
Calcium 8.8 mg/dl (8.4-10.2) 08/24/23 05:42
Fvl-Z-Naqzrlkzdvw Pept 03088 pg/ml 08/17/23 05:16
Albumin 3.4 g/dl (3.5-5.0) L 08/21/23 04:04
Physical Exam
-
Vital Signs:
Vital Signs
Temp Pulse Resp BP Pulse Ox
98.5 F 131 18 109/58 93
08/24/23 07:56 08/24/23 07:00 08/24/23 07:00 08/24/23 07:00 08/24/23 07:00
Cardiovascular:: Regular rate and rhythm
Respiratory:: Bilateral: CTA (anteriorly)
Lung Excursion:: Normal
Abdomen:: Distended, Nontender and Soft
Extremity Edema:: +1: Bilateral:
Red Catheter: No
--- NOTE | 2023-08-24 13:01 | PTCARENOTE ---
Tele shows AF rates 120s-130s PRN IV Lopressor given. Screams in pain when legs are moved - PRN PO Tylenol given. PRBC x 1 initiated. Spouse at bedside.
--- NOTE | 2023-08-24 13:25 | PTCARENOTE ---
Weaned O2 to 6L midflow maintaining sao2 95% - will continue to wean as tolerates
--- NOTE | 2023-08-24 16:20 | W.PN.PUL3 ---
Today's Communication / Plan
-
Transition to prednisone in a.m., slow taper
Continue sport bed, airway clearance measures
Remains on doxycycline
Plan for chest x-ray 08/25
Assessment
-
Assessment:
Mrs Anahi Long is a 73/W adm 08-07 with 2-3 d h/o worsening dyspnea in setting of chronic hypoxic resp failure on home O2 at 3L and multiple comorbidities. At ER, POx 87% on O2 2L, deemed in ac/chronic HF, started on diuretic. Reportedly partial
use and sometimes refusal of BPAP as inpatient. Increasing O2 requirement from chronic baseline 3 L, ABG with respiratory acidosis and hypoxemia on O2 15L, resumed BPAP (currently at 14/6 c 10L O2), diuretic discontinued, atbs changed to zosyn (on
atbs since adm with interim changes as mentioned below), transferred to IMU, pulm consulted.
First DH adm
Impression:
Acute on chronic hypoxemia/hypercarbia requiring noninvasive mechanical ventilation.
On home ventilator trilogy for last 1.5 y
Acute hypercarbia, respiratory acidosis - likely OHS in setting of ADHF and volume overload from CONSTANCE
Bilateral pneumonia
No baseline CXR or CTs for comparison
HFpEF, off outpatient diuretic for 3 wks [employer] due to A/CKI
Anemia, severe. Unknown baseline
A/CKD [employer] [facility], off furosemide by outpatient nephrology 3 wks [facility]
MRSA negative
Elevated D-dimer (likely due to severe infection, kidney disease)
Elevated BNP
Normal troponin
Normal TSH
Conditions [facility]:
Chronic hypoxemia/hypercarbia, on home ventilator trilogy for last 1.[address] Carter at [facility]
HFpEF
CKD stage IIIb
AFib not on AC due to hemorrhagic CVA late 2021 (warfarin initiated for LLE DVT but d/c upon CVA)
LLE DVT
FREDY/OHS on trilogy and O2 3.5-4L for last 1.5 y, reports partial compliance with 4-5 h use max for last 6 m
Pneumonia, Feb 2021, Jan 2022, adm to [facility]
HTN
GERD
Chronic R foot decubitus ulcer
Bedbound state
Depression
Morbid obesity
Non-smoker
DNR
Plan:
At this time, there appears to be objective and subjective improvement. She has been weaned down to 6L 96%, was on mid flow at 12 L before
However chest x-ray today shows significant improvement in left lung and right apical lung aeration. There is still persistent right lower lobe consolidation
Continues with hemodialysis
Moving forward
Continue with supportive care
Continue BiPAP at night, attempt weaning of oxygen
Chest x-ray may be lagging clinical improvement, difficult to determine, although chest x-ray / is improved
Remains on doxycycline. Zosyn has been discontinued
Plan to repeat chest x-ray 08/25
Continue with aggressive airway clearance
Continue sport bed with appropriate lateral rotation and chest percussion
If has persistent secretions and abnormal chest x-ray, may consider bronchoscopy / for airway clearance
However, based on improvement in chest x-ray, hopefully continued aggressive airway clearance will help
MRSA screening negative
All cultures negative.
Foot wound ulcer: Polymicrobial.
Unable to produce sputum
Influenza negative
Covid neg
No further ABGs will be performed.
Dr. Choi had discussed with at the bedside 08/16/2023: DNR status.
Morphine as needed started for increased work of breathing.
Cannot rule out noninfectious etiology. Cryptogenic pneumonia/DAH/etc.
Given worsening hypoxemia, poor air movement, IV dexamethasone was started on 08/15/2023.
Will start to decrease steroids given improvement in chest x-ray and oxygenation
changed to oral prednisone 30 mg
Leukocytosis likely secondary to steroids
Maintain current dosing of steroids till chest x-ray 5/5 is assessed
Patient is at baseline bedbound. Poor baseline conditioning.
Anemia noted
Given possible lung injury process minimize transfusion as able, maintain greater than 7, trending up
Chronic R foot decubitus ulcer.
Podiatry following
Does not probe to bone, no tunneling found
ANABELLA normal
Culture gram-negative bacilli/group C streptococcus via wound Cx from 08-08-2023
Management per primary team.
Needs to follow with pulm after d/c, follows Dr Carter at [facility]
Dr. Choi had previously spoke to , and updated him at bedside on 08/16/2023, poor prognosis. He would like to continue with medical care for now, okay with morphine if patient has increased work of breathing
I spoke with the at bedside 08/20, reviewed with primary service, respiratory care
Remains high risk situation, poor prognosis long-term
Subjective Data
-
Date of Service:
Date of Service: August 24, 2023
Chief Complaint: Pulmonary Follow Up (Bilateral pneumonia/acute on chronic hypoxemic/hypercapnic respiratory failure.)
Subjective:
Patient always sleeping but easily arousable. States her breathing continues to improve. Has adequate cough. Unfortunately extremely sedentary, bedridden. Denies nausea, chest pain, abdominal pain
Objective Data
Data Reviewed
Vital Signs / I&O / Oxygen:
Vital Signs
Temp Pulse Resp BP Pulse Ox
97.3 F 120 24 104/66 96
08/24/23 16:01 08/24/23 16:01 08/24/23 16:01 08/24/23 16:01 08/24/23 12:00
Intake and Output
08/23/23 08/24/23 08/25/23
06:59 06:59 06:59
Intake Total 200 / 200 150 / 150 250 / 250
Balance 200 / 200 150 / 150 250 / 250
SaO2 96
Nasal Cannula flow liters per 6
minute
Physical Exam
General: Comfortable, Other (Morbidly obese) and Other (Right anterior chest HD catheter)
HEENT: Normocephalic
Cardiovascular: S1-S2, Regular Rhythm, Murmur (n), Rub (n) and Peripheral Edema (+1 lower extremity edema)
Respiratory: Wheeze (n), Crackles (Negative), Rhonchi (Scattered, worse with cough), Non-Labored Respirations and Stridor (n)
GI: Soft, Distended (obese), Non Tender and Normal Bowel Sounds
Neurology: Lethargic (sleeping with BiPAP in place)
Skin: Cyanosis (n), Jaundice (n) and Rash (n)
Labs/Micro/Reports
Lab Data
08/24/23 05:42
08/24/23 05:42
--- NOTE | 2023-08-24 17:04 | W.PN.HOSP.TC ---
Today's Communication/Plan
-
continue wean off o2
toprol dose increased
see note
Assessment / Plan
Assessment / Plan
TTE
Mild concentric left ventricular hypertrophy. Normal regional wall motion. Left ventricular ejection fraction is 75% by Pham's method.
Normal diastolic function. Normal right ventricular size and function. Trace mitral regurgitation.
Aortic sclerosis without stenosis. Mild tricuspid regurgitation.
Estimated pulmonary artery pressure of 37 mmHg, assuming a right atrial pressure of 3 mmHg. Normal pericardium without effusion.
The IVC is of normal size and demonstrates normal respiratory variation.
NO prior available for comparison
CT right foot
Findings suggesting moderate cellulitis of the dorsal right foot. No focal fluid collection to suggest abscess . Limited exam without IV contrast.
LE arterial doppler
1. Noncompressible arteries bilaterally, suggestive of medial calcinosis and/or arterial noncompliance, which makes measured ankle-brachial indices unreliable. Toe brachial indices are considered more reliable in this situation.
2. Right toe brachial index 1.03 (normal greater than 0.7). No focal arterial stenosis demonstrated. Spectral Doppler waveforms are normal to the level of ankle.
3. Left toe brachial index 1.23. No focal arterial stenosis demonstrated. Spectral Doppler waveforms are normal to the level of ankle.

# Acute on chronic hypoxic and hypercapnic respiratory failure
# B/l Pneumonia
-Patient hypercapnic respiratory failure has been improved and on BiPAP at night.
-Patient has been started on hemodialysis to volume optimize
-CT chest 08/11 images reviewed and patient have bilateral infiltrates. Maintained on Zosyn. Vancomycin has been discontinued.
-Patient started on IV steroids empirically as well.
-O2 requirement coming down and on 6L o2 today
-bronchoscopy was discussed but on hold now.
#CONSTANCE on Presumed CKD stage IIIb
-Patient was taken off of Lasix 3 weeks before this hospitalization due to worsening renal function.
-Patient having significant hypoxia and was concerning for pulmonary edema, patient failed trial of IV Lasix therapy.
-Nephrology discussed with patient and has been started on hemodialysis.
#Hypernatremia
-Monitor with HD
#Visual hallucination
-reported at night time
-discontinued Dilaudid, have not gotten dose in 72hrs.
-steroid also possibly playing role
-Cant tolerate seroquel 12.5mg, discontinued. no more hallucination.
#Acute on chronic anemia
� Does not appear to be actively bleeding
� s/p 2 u PRBC this admit
� Iron saturation within normal limits, ferritin elevated
- suspecting anemia from renal disease, getting EPO inj
- Hbg down to 6.9 today, giving 1 u prbc
#Right foot chronic decubitus wound
-Ongoing for 2.5 yrs. Patient gets wound care at home by [facility]. Have been seen by podiatry in the past as well
-Infected foul-smelling purulent drainage on exam in ER
-Superficial Wound culture growing gram neg bacilli, group c streptococcus
-Lower extremity ANABELLA report as above
-CT left foot/xr did not show osteo. no abscess.
-Podiatry evaluated. continue local wound care.
-wound looks dry with healthy granulation tissue. Patient finished course for wound infection.
#history of A-fib
h/o of LLE DVT
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
-can not get CT Chest PE with renal function and V/q due to pulm edema
-dvt study negative this admit
-Heart rate in 100-130 range today, triggered by anemia possibly vs other cause.
-Lopressor dose increased to 50mg/bid. will up-titrate further as needed.
#Essential hypertension
-on lopressor for simultaneous HR control. norvasc/valsartan on hold
#FREDY
-cont bipap at night time
-Trelegy at home
# h/o Type II DM
-Record diabetic with hemoglobin A1c of 5.1. Not on any meds at home
-start on mod ISS as BG uncontrolled with steroids need.
morbid obesity
bedbound
depression
GERD
DVT PPX - heparin subq
DNR/DNI
Anticipated Discharge: > 48 hours
Subjective/Interval History
-
Date of Service: August 24, 2023
mentation better in morning today
o2 requirement is coming down
HR uncontrolled today
Objective Data
-
Labs:
Laboratory Results
08/24/23
05:42
WBC 20.8 H
Hgb 6.9 L*
Hct 21.8 L
Plt Count 152 D
Sodium 132 L
Potassium 3.7
Chloride 98
Carbon Dioxide 27
BUN 25 H
Creatinine 2.0 H
Glucose 123 H
Calcium 8.8
Vital Signs:
Vital Signs
Temp Pulse Resp BP Pulse Ox
97.3 F 120 24 104/66 96
08/24/23 16:01 08/24/23 16:01 08/24/23 16:01 08/24/23 16:01 08/24/23 12:00
I&O
08/23/23 08/24/23 08/25/23
06:59 06:59 06:59
Intake Total 200 / 200 150 / 150 250 / 250
Balance 200 / 200 150 / 150 250 / 250
Review of Systems
-
Respiratory: Reports No Symptoms
Cardiac: Reports No Symptoms
Abdomen/GI: Reports No Symptoms
Physical Exam
-
General: No Apparent Distress, Comfortable and Morbidly Obese
HEENT: Oxygen (on 6L through midflow)
Respiratory: Rhonchi
Cardiac: S1/S2, Irregular Rhythm and Tachycardic; Negative Murmur or Rub
GI: Soft, Nontender and Nondistended
Musculoskeletal: No Edema
Skin: Other (Right dorsal foot wound with dressing)
Neuro: Awake, Alert and No Motor Deficits
Psych: Calm
[2023-08-24 17:24] LABS: Glucose - Point of Care 165 mg/dl (70-99)
[2023-08-24] MEDS: NOVOLOG FLEXPEN-MODERATE RESISTANCE 1 UNITS SC (18:41)
[2023-08-24] MEDS: LOPRESSOR 50 MG PO (19:56)
[2023-08-24] MEDS: LIPITOR 40 MG PO (19:56)
--- NOTE | 2023-08-24 21:51 | PTCARENOTE ---
Pt received at beginning of shift resting in bed. AAOx3. Admits to pain to LE's especially when care provided. She apologizes if she screams out when care given. VSS. Afebrile. AFib on CM rate 114. POX 94% on 4L MF. Lung sounds diminished. Agrees to
wear BIPAP overnight. Abdomen obese + BS. Anuric. HD scheduled for noontime tomorrow. Pt made aware. Right leg externally rotated outward which is chronic. Rest of assessment as documented. Call green within reach and pt demonstrated correct use.
Will continue to monitor.
[2023-08-24 23:27] LABS: Glucose - Point of Care 168 mg/dl (70-99)
[2023-08-25] VITALS (33 sets, daily range): BP systolic 87–156; BP diastolic 51–97; PULSE 2; BMI 35.2
[2023-08-25] MEDS: HEPARIN 5000 UNITS SC ×2 (09:31→19:19)
[2023-08-25] MEDS: ZOLOFT 50 MG PO (09:31)
[2023-08-25] MEDS: DELTASONE 30 MG PO (09:32)
[2023-08-25] MEDS: PROTONIX 40 MG PO (09:32)
[2023-08-25] MEDS: VIBRAMYCIN 100 MG PO ×2 (09:32→19:20)
[2023-08-25] MEDS: VITAMIN C 250 MG PO (09:32)
[2023-08-25] MEDS: FEOSOL 325 MG PO (09:32)
[2023-08-25] MEDS: VITAMIN D3 (cholecalciferol) 50 MCG PO (09:32)
[2023-08-25] MEDS: LOPRESSOR 50 MG PO ×2 (09:32→19:20)
[2023-08-25] MEDS: ProAmatine 10 MG PO (09:35)
[2023-08-25] MEDS: TYLENOL 650 MG PO ×2 (09:38→15:41)
[2023-08-25 10:18] LABS: Glucose - Point of Care 154 mg/dl (70-99)
[2023-08-25] MEDS: NOVOLOG FLEXPEN-MODERATE RESISTANCE 1 UNITS SC (10:27)
[2023-08-25 10:59] LABS: Blood Urea Nitrogen 47 mg/dl (7-17); Calcium 9.4 mg/dl (8.4-10.2); Carbon Dioxide 23 mmol/L (22-30); Chloride 99 mmol/L (98-107); Estimated Creatinine Clearance 21 ml/min; Glucose 138 mg/dl (70-99); Potassium 3.5 mmol/L (3.5-5.1); Sodium 134 mmol/L (135-145); eGFR 16.79
[2023-08-25 12:15] LABS: % Basophils 0.2 % (0-2); % Eosinophils 0.1 % (0-6); % Immature Granulocytes 2.3 % (0-0.5); % Lymphocytes 4.2 % (20.5-51.1); % Neutrophils 86.2 % (42.2-75.2); Absolute Immature Granulocytes 0.5 10^3/uL (0-0.05); Absolute Lymphocytes 0.8 10^3/uL (1.2-3.4); Absolute Monocytes 1.4 10^3/uL (0.1-0.6); Absolute Neutrophils 16.9 10^3/uL (1.4-6.5); Hematocrit 25.8 % (37.0-47.0); Mean Corp Hgb Conc. 32.2 g/dL (33.0-37.0); Mean Corpuscular Hgb 29.3 pg (27.0-31.0); Mean Corpuscular Volume 91.2 fL (81.0-99.0); Mean Platelet Volume 11.4 fL (7.4-10.4); Nucleated Red Blood Cells % 0.3 %; Platelet Count 264 10^3/uL (130-400); Red Blood Cell Count 2.83 10^6/uL (4.20-5.40); Red Cell Dist. Width 16.9 % (11.5-14.5); White Blood Cell Count 19.6 10^3/uL (4.8-10.8)
[2023-08-25 12:20] LABS: Hemoglobin 8.3 g/dL (12.0-16.0)
--- NOTE | 2023-08-25 13:00 | PTCARENOTE ---
Pt presents as assessed. Sating mid to high 90's on 4L MF. Afib on tele monitor. Medications administered as ordered, see MAR. On HD at this time, tolerating well. at bedside. Safe environment maintained.
[2023-08-25] MEDS: FLEXBUMIN 25% FOR HEMODIALYSIS 12.5 GRAMS IV ×2 (13:23→14:43)
[2023-08-25] MEDS: RETACRIT 10000 UNITS IV (13:25)
[2023-08-25] MEDS: MANNITOL 12.5 GRAMS IV (13:30)
[2023-08-25] MEDS: NOVOLOG FLEXPEN-MODERATE RESISTANCE SC ×2 (13:41→18:18)
[2023-08-25 13:50] LABS: Glucose - Point of Care 124 mg/dl (70-99)
--- NOTE | 2023-08-25 14:28 | W.PN.HOSP.TC ---
Today's Communication/Plan
-
see note
Assessment / Plan
Assessment / Plan
TTE
Mild concentric left ventricular hypertrophy. Normal regional wall motion. Left ventricular ejection fraction is 75% by Pham's method.
Normal diastolic function. Normal right ventricular size and function. Trace mitral regurgitation.
Aortic sclerosis without stenosis. Mild tricuspid regurgitation.
Estimated pulmonary artery pressure of 37 mmHg, assuming a right atrial pressure of 3 mmHg. Normal pericardium without effusion.
The IVC is of normal size and demonstrates normal respiratory variation.
NO prior available for comparison
CT right foot
Findings suggesting moderate cellulitis of the dorsal right foot. No focal fluid collection to suggest abscess . Limited exam without IV contrast.
LE arterial doppler
1. Noncompressible arteries bilaterally, suggestive of medial calcinosis and/or arterial noncompliance, which makes measured ankle-brachial indices unreliable. Toe brachial indices are considered more reliable in this situation.
2. Right toe brachial index 1.03 (normal greater than 0.7). No focal arterial stenosis demonstrated. Spectral Doppler waveforms are normal to the level of ankle.
3. Left toe brachial index 1.23. No focal arterial stenosis demonstrated. Spectral Doppler waveforms are normal to the level of ankle.

# Acute on chronic hypoxic and hypercapnic respiratory failure
# B/l Pneumonia
-Patient hypercapnic respiratory failure has been improved and on BiPAP at night.
-Patient has been started on hemodialysis to volume optimize
-CT chest 08/11 images reviewed and patient have bilateral infiltrates. Maintained on Zosyn. Vancomycin has been discontinued.
-Patient started on IV steroids empirically as well.
-O2 requirement coming down and on 4L through NC
-bronchoscopy was discussed but on hold now.
#CONSTANCE on Presumed CKD stage IIIb
-Patient was taken off of Lasix 3 weeks before this hospitalization due to worsening renal function.
-Patient having significant hypoxia and was concerning for pulmonary edema, patient failed trial of IV Lasix therapy.
-Nephrology discussed with patient and has been started on hemodialysis.
#Hypernatremia
-Monitor with HD
#Visual hallucination
-reported at night time
-discontinued Dilaudid, have not gotten dose in 72hrs.
-steroid also possibly playing role
-Cant tolerate seroquel 12.5mg, discontinued. no more hallucination.
#Acute on chronic anemia
� Does not appear to be actively bleeding
� total 3 u PRBC this admit
� Iron saturation within normal limits, ferritin elevated
- suspecting anemia from renal disease, getting EPO inj
- Hemoglobin 8.3 s/p 1 unit of PRBC yesterday
#Right foot chronic decubitus wound
-Ongoing for 2.5 yrs. Patient gets wound care at home by VN. Have been seen by podiatry in the past as well
-Infected foul-smelling purulent drainage on exam in ER
-Superficial Wound culture growing gram neg bacilli, group c streptococcus
-Lower extremity ANABELLA report as above
-CT left foot/xr did not show osteo. no abscess.
-Podiatry evaluated. continue local wound care.
-wound looks dry with healthy granulation tissue. Patient finished course for wound infection.
#history of A-fib
h/o of LLE DVT
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
-can not get CT Chest PE with renal function and V/q due to pulm edema
-dvt study negative this admit
-Patient back in sinus rhythm after increased dose of metoprolol. Continue monitoring on telemetry
#Essential hypertension
-on lopressor for simultaneous HR control. norvasc/valsartan on hold
#FREDY
-cont bipap at night time
-Trelegy at home
# h/o Type II DM
-Record diabetic with hemoglobin A1c of 5.1. Not on any meds at home
-start on mod ISS as BG uncontrolled with steroids need.
morbid obesity
bedbound
depression
GERD
DVT PPX - heparin subq
DNR/DNI
Transfer tele.
CM working on arranging HD chair time.
Anticipated Discharge: > 48 hours
Subjective/Interval History
-
Date of Service: August 25, 2023
Subjective feeling better
Oxygen requirement is came down to 4 L through nasal cannula
Patient in normal sinus rhythm
No reported hallucination
Mentation much clear
Objective Data
-
Labs:
Laboratory Results
08/25/23 08/25/23
10:04 12:03
WBC Cancelled 19.6 H
Hgb Cancelled 8.3 L D
Hct Cancelled 25.8 L
Plt Count Cancelled 264 D
Sodium 134 L
Potassium 3.5
Chloride 99
Carbon Dioxide 23
BUN 47 H
Creatinine 2.9 H
Glucose 138 H
Calcium 9.4
Vital Signs:
Vital Signs
Temp Pulse Resp BP Pulse Ox
97.6 F 84 16 136/63 95
08/25/23 07:45 08/25/23 14:00 08/25/23 14:00 08/25/23 14:00 08/25/23 13:45
I&O
08/24/23 08/25/23 08/26/23
06:59 06:59 06:59
Intake Total 150 / 150 350 / 350
Balance 150 / 150 350 / 350
Review of Systems
-
Respiratory: Reports No Symptoms
Cardiac: Reports No Symptoms
Abdomen/GI: Reports No Symptoms
Physical Exam
-
General: No Apparent Distress, Comfortable and Morbidly Obese
HEENT: Oxygen (on 4L through midflow)
Respiratory: Rhonchi
Cardiac: Regular Rhythm, S1/S2 and Tachycardic; Negative Murmur or Rub
GI: Soft, Nontender and Nondistended
Musculoskeletal: No Edema
Skin: Other (Right dorsal foot wound with dressing)
Neuro: Awake, Alert and No Motor Deficits
Psych: Calm
--- NOTE | 2023-08-25 14:32 | W.PN.NEPH.HD ---
Assessment
-
pt seen during H D
vitals stable on high dose midodrine
hb better ports PRBC, cont high dose MARIA T
she is down to 4-5lit of O2
HR improved, on higher dose BB
CVC functions well
out pt HD unit placement pending-Salima Tineo
Progress Note - Hemodialysis
-
Date of Service: August 25, 2023
Duration: 30 minutes and 3 hours
Potassium Bath: 3
Calcium Bath: 2.5
Opti-Dialyzer: 160
Ultrafiltration: Other (2.5-3kg)
Blood Flow: 400
Dialysate Flow: 600
Heparin: no
EPO: [id number]
--- NOTE | 2023-08-25 17:01 | W.PN.PUL3 ---
Today's Communication / Plan
-
Continue prednisone
Secretion clearance interventions
Repeat chest x-ray tomorrow
Dialysis
On oral antibiotic
Incentive spirometry as able
Noninvasive mechanical ventilation
Assessment
-
Assessment:
Mrs Anahi Long is a 73/W adm - with 2-3 d h/o worsening dyspnea in setting of chronic hypoxic resp failure on home O2 at 3L and multiple comorbidities. At ER, POx 87% on O2 2L, deemed in ac/chronic HF, started on diuretic. Reportedly partial
use and sometimes refusal of BPAP as inpatient. Increasing O2 requirement from chronic baseline 3 L, ABG with respiratory acidosis and hypoxemia on O2 15L, resumed BPAP (currently at 14/6 c 10L O2), diuretic discontinued, atbs changed to zosyn (on
atbs since adm with interim changes as mentioned below), transferred to IMU, pulm consulted.
First DH adm
Impression:
Acute on chronic hypoxemia/hypercarbia requiring noninvasive mechanical ventilation.
On home ventilator trilogy for last 1.5 y
Acute hypercarbia, respiratory acidosis - likely OHS in setting of ADHF and volume overload from CONSTANCE
Bilateral pneumonia
No baseline CXR or CTs for comparison
HFpEF, off outpatient diuretic for 3 wks SORT WORKER due to A/CKI
Anemia, severe. Unknown baseline
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
MRSA negative
Elevated D-dimer (likely due to severe infection, kidney disease)
Elevated BNP
Normal troponin
Normal TSH
Conditions SORT WORKER:
Chronic hypoxemia/hypercarbia, on home ventilator trilogy for last 1.[address] Carter at [facility]
HFpEF
CKD stage IIIb
AFib not on AC due to hemorrhagic CVA late 2021 (warfarin initiated for LLE DVT but d/c upon CVA)
LLE DVT
FREDY/OHS on trilogy and O2 3.5-4L for last 1.5 y, reports partial compliance with 4-5 h use max for last 6 m
Pneumonia, Feb 2021, Jan 2022, adm to [facility]
HTN
GERD
Chronic R foot decubitus ulcer
Bedbound state
Depression
Morbid obesity
Non-smoker
DNR
Plan:
Clinically slowly improving.
Now on 6 L nasal cannula. Continue to wean down as able
However chest x-ray today shows significant improvement in left lung and right apical lung aeration. There is still persistent right lower lobe consolidation
Continues with hemodialysis, tolerating well.
Plan:
Continue BiPAP at night, attempt weaning of oxygen
Chest x-ray may be lagging clinical improvement, difficult to determine, although chest x-ray 08/22 is improved
Remains on doxycycline. Zosyn has been discontinued
Plan to repeat chest x-ray 08/25
Continue with aggressive airway clearance
Continue sport bed with appropriate lateral rotation and chest percussion
If has persistent secretions and abnormal chest x-ray, may consider bronchoscopy 5/6 for airway clearance
-
However, based on improvement in chest x-ray, hopefully continued aggressive airway clearance will help
MRSA screening negative
All cultures negative.
Foot wound ulcer: Polymicrobial.
Unable to produce sputum
Influenza negative
Covid neg
No further ABGs will be performed.
Dr. Choi had discussed with at the bedside 08/16/2023: DNR status.
Morphine as needed started for increased work of breathing.
Cannot rule out noninfectious etiology. Cryptogenic pneumonia/DAH/etc.
Given worsening hypoxemia, poor air movement, IV dexamethasone was started on 08/15/2023.
Will start to decrease steroids given improvement in chest x-ray and oxygenation
changed to oral prednisone 30 mg, slow taper per
Leukocytosis likely secondary to steroids
Continue to monitor for fevers.
Patient is at baseline bedbound. Poor baseline conditioning.
Anemia noted
Given possible lung injury process minimize transfusion as able, maintain greater than 7, trending up
Chronic R foot decubitus ulcer.
Podiatry following
Does not probe to bone, no tunneling found
ANABELLA normal
Culture gram-negative bacilli/group C streptococcus via wound Cx from 08-08-2023
Management per primary team.
Needs to follow with pulm after d/c, follows Dr Carter at [facility]
Dr. Choi had previously spoke to , and updated him at bedside on 08/16/2023, poor prognosis. He would like to continue with medical care for now, okay with morphine if patient has increased work of breathing
I spoke with the at bedside 08/20, reviewed with primary service, respiratory care
Remains high risk situation, poor prognosis long-term
Subjective Data
-
Date of Service:
Date of Service: August 25, 2023
Chief Complaint: Pulmonary Follow Up (Bilateral pneumonia/acute on chronic hypoxemic/hypercapnic respiratory failure.)
Subjective:
Tolerated dialysis
No new complaints.
Review of Systems
General: Fever (n)
Cardiopulmonary: Dyspnea (none at rest) and Sputum Production (n)
GI: Abdominal Pain (n) and Nausea (n)
Objective Data
Data Reviewed
Vital Signs / I&O / Oxygen:
Vital Signs
Temp Pulse Resp BP Pulse Ox
97.9 F 84 16 136/63 95
08/25/23 11:45 08/25/23 14:00 08/25/23 14:00 08/25/23 14:00 08/25/23 13:45
Intake and Output
08/24/23 08/25/23 08/26/23
06:59 06:59 06:59
Intake Total 150 / 150 350 / 350
Balance 150 / 150 350 / 350
SaO2 95
Nasal Cannula flow liters per 4
minute
Physical Exam
General: Comfortable, Other (Morbidly obese) and Other (Right anterior chest HD catheter)
HEENT: Normocephalic
Cardiovascular: S1-S2, Regular Rhythm, Murmur (n), Rub (n) and Peripheral Edema (+1 lower extremity edema)
Respiratory: Wheeze (n), Crackles (Negative), Rhonchi (Scattered, worse with cough), Non-Labored Respirations and Stridor (n)
GI: Soft, Distended (obese), Non Tender and Normal Bowel Sounds
Neurology: Lethargic (sleeping with BiPAP in place)
Skin: Cyanosis (n), Jaundice (n) and Rash (n)
Labs/Micro/Reports
Lab Data
08/25/23 12:03
08/25/23 10:04
[2023-08-25 17:30] LABS: Glucose - Point of Care 128 mg/dl (70-99)
[2023-08-25] MEDS: LIPITOR 40 MG PO (19:20)
--- NOTE | 2023-08-25 21:15 | PTCARENOTE ---
Pt now telemetry, room transfer entered for 2127. Call placed to 2N and report given to JLUIS Lord. Pt, bed, BIPAP machine and all belongings transported to room 2127.
[2023-08-25 21:44] LABS: Glucose - Point of Care 141 mg/dl (70-99)
[2023-08-26] VITALS (7 sets, daily range): BP systolic 116–163; BP diastolic 49–70; PULSE 2; BMI 35.4
[2023-08-26 07:21] LABS: Glucose - Point of Care 111 mg/dl (70-99)
[2023-08-26] MEDS: NOVOLOG FLEXPEN-MODERATE RESISTANCE SC (07:22)
[2023-08-26] MEDS: ZOLOFT 50 MG PO (08:14)
[2023-08-26] MEDS: VIBRAMYCIN 100 MG PO ×2 (08:14→19:52)
[2023-08-26] MEDS: FEOSOL 325 MG PO (08:14)
[2023-08-26] MEDS: LOPRESSOR 50 MG PO ×2 (08:14→19:52)
[2023-08-26] MEDS: VITAMIN C 250 MG PO (08:14)
[2023-08-26] MEDS: DELTASONE 30 MG PO (08:14)
[2023-08-26] MEDS: HEPARIN 5000 UNITS SC ×2 (08:15→19:51)
[2023-08-26] MEDS: VITAMIN D3 (cholecalciferol) 50 MCG PO (08:15)
[2023-08-26] MEDS: PROTONIX 40 MG PO (08:15)
[2023-08-26] MEDS: TYLENOL 650 MG PO ×2 (08:26→18:25)
--- NOTE | 2023-08-26 10:22 | W.PN.NEPH.PH ---
Today's Communication / Plan
-
HD sunday
Assessment/Plan
-
Impression:
Bilateral PNA
Acute kidney injury
CKD stage IV (3.0) on 06/16
Diabetes
Chronic Right foot wound (wound culture notes GNB/ group c strep)
Hypertension
Acidemia :acute on chronic chronic hypoxic respiratory failure/metabolic acidosis
Atrial fibrillation
History of hemorrhagic CVA
History of left leg DVT
Morbid obesity
Obstructive sleep apnea on CPAP
Hypercapnic respiratory
Anemia
Plan:
Hd TTS while in hospital
wt is down and on 4-5lit of O2 now, BIPAP at HS
will cont midodrine with HD to allow UF
HR have stabilized with increased BB 50mg BID on 08/23
improving h/h, s/p PRBC on 08/23
BP now increasing trend, if persists likely resume Amlodipine
pending HD unit placement
-
-
Date of Service: August 26, 2023
CC / HPI / ROS
-
Chief Complaint:
CONSTANCE
History of Present Illness:
CONSTANCE CKD 4 now on HD
Hgb better at 8.4 post PRBC on 08/23
BP increasing trend now, HR stable
no fever, wt not measured today
Review of Systems:
no CP
bedbound
Weights down
On 4-5lit O2
Labs
-
Labs:
WBC 19.6 10^3/uL (4.8-10.8) H 08/25/23 12:03
RBC 2.83 10^6/uL (4.20-5.40) L 08/25/23 12:03
Hgb 8.3 g/dL (12.0-16.0) L D 08/25/23 12:03
Hct 25.8 % (37.0-47.0) L 08/25/23 12:03
Plt Count 264 10^3/uL (130-400) D 08/25/23 12:03
Sodium 134 mmol/L (135-145) L 08/25/23 10:04
Potassium 3.5 mmol/L (3.5-5.1) 08/25/23 10:04
Chloride 99 mmol/L (98-107) 08/25/23 10:04
Carbon Dioxide 23 mmol/L (22-30) 08/25/23 10:04
BUN 47 mg/dl (7-17) H 08/25/23 10:04
Creatinine 2.9 mg/dL (0.6-1.0) H 08/25/23 10:04
eGFR 16.79 08/25/23 10:04
Glucose 138 mg/dl (70-99) H 08/25/23 10:04
Calcium 9.4 mg/dl (8.4-10.2) 08/25/23 10:04
Jjq-Z-Pckzodxvvmf Pept 16815 pg/ml 08/17/23 05:16
Albumin 3.4 g/dl (3.5-5.0) L 08/21/23 04:04
Physical Exam
-
Vital Signs:
Vital Signs
Temp Pulse Resp BP Pulse Ox
97.9 F 74 20 163/62 96
08/26/23 07:10 08/26/23 08:14 08/26/23 07:10 08/26/23 08:14 08/26/23 07:10
Cardiovascular:: Regular rate and rhythm
Respiratory:: Bilateral: CTA (anteriorly)
Lung Excursion:: Normal
Abdomen:: Nontender and Soft
Extremity Edema:: None: Bilateral:
Red Catheter: No
--- NOTE | 2023-08-26 11:33 | W.PN.HOSP.TC ---
Today's Communication/Plan
-
awaiting HD chair time/transport arrangement
day 5 of
discharge planning for home
Assessment / Plan
Assessment / Plan
TTE
Mild concentric left ventricular hypertrophy. Normal regional wall motion. Left ventricular ejection fraction is 75% by Pham's method.
Normal diastolic function. Normal right ventricular size and function. Trace mitral regurgitation.
Aortic sclerosis without stenosis. Mild tricuspid regurgitation.
Estimated pulmonary artery pressure of 37 mmHg, assuming a right atrial pressure of 3 mmHg. Normal pericardium without effusion.
The IVC is of normal size and demonstrates normal respiratory variation.
NO prior available for comparison
CT right foot
Findings suggesting moderate cellulitis of the dorsal right foot. No focal fluid collection to suggest abscess . Limited exam without IV contrast.
LE arterial doppler
1. Noncompressible arteries bilaterally, suggestive of medial calcinosis and/or arterial noncompliance, which makes measured ankle-brachial indices unreliable. Toe brachial indices are considered more reliable in this situation.
2. Right toe brachial index 1.03 (normal greater than 0.7). No focal arterial stenosis demonstrated. Spectral Doppler waveforms are normal to the level of ankle.
3. Left toe brachial index 1.23. No focal arterial stenosis demonstrated. Spectral Doppler waveforms are normal to the level of ankle.

# Acute on chronic hypoxic and hypercapnic respiratory failure
# B/l Pneumonia
-Patient hypercapnic respiratory failure has been improved and on BiPAP at night.
-Patient has been started on hemodialysis to volume optimize
-CT chest 08/11 images reviewed and patient have bilateral infiltrates. Maintained on Zosyn. Vancomycin has been discontinued.
-Patient started on IV steroids empirically as well.
-O2 requirement coming down and on 4L through NC
-bronchoscopy was discussed but on hold now.
#CONSTANCE on Presumed CKD stage IIIb
-Patient was taken off of Lasix 3 weeks before this hospitalization due to worsening renal function.
-Patient having significant hypoxia and was concerning for pulmonary edema, patient failed trial of IV Lasix therapy.
-Nephrology discussed with patient and has been started on hemodialysis.
#Hypernatremia
-Monitor with HD
#Visual hallucination
-reported at night time
-discontinued Dilaudid, have not gotten dose in 72hrs.
-steroid also possibly playing role
-Cant tolerate seroquel 12.5mg, discontinued. no more hallucination.
#Acute on chronic anemia
� Does not appear to be actively bleeding
� total 3 u PRBC this admit
� Iron saturation within normal limits, ferritin elevated
- suspecting anemia from renal disease, getting EPO inj
- f/u hbg and replace as needed
#Right foot chronic decubitus wound
-Ongoing for 2.5 yrs. Patient gets wound care at home by VN. Have been seen by podiatry in the past as well
-Infected foul-smelling purulent drainage on exam in ER
-Superficial Wound culture growing gram neg bacilli, group c streptococcus
-Lower extremity ANABELLA report as above
-CT left foot/xr did not show osteo. no abscess.
-Podiatry evaluated. continue local wound care.
-wound looks dry with healthy granulation tissue. Patient finished course for wound infection.
#history of A-fib
h/o of LLE DVT
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
-can not get CT Chest PE with renal function and V/q due to pulm edema
-dvt study negative this admit
-Patient back in sinus rhythm after increased dose of metoprolol. Continue monitoring on telemetry
#Essential hypertension
-on lopressor for simultaneous HR control. norvasc/valsartan on hold
#FREDY
-cont bipap at night time
-Trelegy at home
# h/o Type II DM
-Record diabetic with hemoglobin A1c of 5.1. Not on any meds at home
-start on mod ISS as BG uncontrolled with steroids need.
morbid obesity
bedbound
depression
GERD
DVT PPX - heparin subq
DNR/DNI
Transfer tele.
CM working on arranging HD chair time.
Anticipated Discharge: Within 24 hours
Subjective/Interval History
-
Date of Service: August 26, 2023
resting comfortably in bed
o2 requirement is stable
Objective Data
-
Vital Signs:
Vital Signs
Temp Pulse Resp BP Pulse Ox
98.0 F 73 18 153/65 97
08/26/23 10:53 08/26/23 10:53 08/26/23 10:53 08/26/23 10:53 08/26/23 10:53
I&O
08/25/23 08/26/23 08/27/23
06:59 06:59 06:59
Intake Total 350 / 350
Balance 350 / 350
Review of Systems
-
Respiratory: Reports No Symptoms
Cardiac: Reports No Symptoms
Abdomen/GI: Reports No Symptoms
Physical Exam
-
General: No Apparent Distress, Comfortable and Morbidly Obese
HEENT: Oxygen (on 4L through midflow)
Respiratory: Rhonchi
Cardiac: Regular Rhythm, S1/S2 and Tachycardic; Negative Murmur or Rub
GI: Soft, Nontender and Nondistended
Musculoskeletal: No Edema
Skin: Other (Right dorsal foot wound with dressing)
Neuro: Awake, Alert and No Motor Deficits
Psych: Calm
[2023-08-26 12:55] LABS: Glucose - Point of Care 152 mg/dl (70-99)
[2023-08-26] MEDS: NOVOLOG FLEXPEN-MODERATE RESISTANCE 1 UNITS SC (14:03)
[2023-08-26 17:35] LABS: Glucose - Point of Care 216 mg/dl (70-99)
[2023-08-26] MEDS: NOVOLOG FLEXPEN-MODERATE RESISTANCE 3 UNITS SC (17:40)
--- NOTE | 2023-08-26 18:30 | W.PN.PUL3 ---
Today's Communication / Plan
-
Continue nocturnal BiPAP
Secretion clearance intervention
Complete antibiotic therapy
Dialysis
Discharge planning
Prednisone taper
Sign off
Assessment
-
Assessment:
Mrs Anahi Long is a 73/W adm 08-07 with 2-3 d h/o worsening dyspnea in setting of chronic hypoxic resp failure on home O2 at 3L and multiple comorbidities. At ER, POx 87% on O2 2L, deemed in ac/chronic HF, started on diuretic. Reportedly partial
use and sometimes refusal of BPAP as inpatient. Increasing O2 requirement from chronic baseline 3 L, ABG with respiratory acidosis and hypoxemia on O2 15L, resumed BPAP (currently at 14/6 c 10L O2), diuretic discontinued, atbs changed to zosyn (on
atbs since adm with interim changes as mentioned below), transferred to IMU, pulm consulted.
First DH adm
Impression:
Acute on chronic hypoxemia/hypercarbia requiring noninvasive mechanical ventilation.
On home ventilator trilogy for last 1.5 y
Acute hypercarbia, respiratory acidosis - likely OHS in setting of ADHF and volume overload from CONSTANCE
Bilateral pneumonia
No baseline CXR or CTs for comparison
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
Anemia, severe. Unknown baseline
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
MRSA negative
Elevated D-dimer (likely due to severe infection, kidney disease)
Elevated BNP
Normal troponin
Normal TSH
Conditions DENTAL ASSISTING INSTRUCTOR:
Chronic hypoxemia/hypercarbia, on home ventilator trilogy for last 1.[address] Carter at [facility]
HFpEF
CKD stage IIIb
AFib not on AC due to hemorrhagic CVA late 2021 (warfarin initiated for LLE DVT but d/c upon CVA)
LLE DVT
FREDY/OHS on trilogy and O2 3.5-4L for last 1.5 y, reports partial compliance with 4-5 h use max for last 6 m
Pneumonia, Feb 2021, Jan 2022, adm to [facility]
HTN
GERD
Chronic R foot decubitus ulcer
Bedbound state
Depression
Morbid obesity
Non-smoker
DNR
Plan:
Clinically slowly improving.
Down to 4 L nasal cannula.
Chest x-ray 08/26/2023: To my view shows significant improvement. Better aeration of her left right lung. Part of is likely atelectasis mucous plugging.
Continues with hemodialysis, tolerating well.
Plan:
Continue BiPAP at night-May continue upon discharge.(Patient has trilogy ventilator at home)
Continue with aggressive airway clearance
Continue sport bed with appropriate lateral rotation and chest percussion
-
Remains on doxycycline will complete total 7 days. Zosyn has been discontinued
Improved chest x-ray 08/26/2023.
-
MRSA screening negative
All cultures negative.
Foot wound ulcer: Polymicrobial.
Unable to produce sputum
Influenza negative
Covid neg
-
No further ABGs will be performed.
Dr. Choi had discussed with at the bedside 08/16/2023: DNR status.
-
Cannot rule out noninfectious etiology. Cryptogenic pneumonia/DAH/etc.
Continue slow steroid taper:changed to oral prednisone 30 mg, decrease by 10 mg every 72 hours to off.
Patient is at baseline bedbound. Poor baseline conditioning.
Chronic R foot decubitus ulcer.
Podiatry following
Does not probe to bone, no tunneling found
ANABELLA normal
Culture gram-negative bacilli/group C streptococcus via wound Cx from 08-08-2023
Management per primary team.
Needs to follow with pulm after d/c, follows Dr Carter at [facility] group
Dr. Choi had previously spoke to , and updated him at bedside on 08/16/2023, poor prognosis. He would like to continue with medical care for now, okay with morphine if patient has increased work of breathing
No additional recommendation from the pulmonary perspective
At this point I will sign off
Please call with question. Agree with discharge planning.
Subjective Data
-
Date of Service:
Date of Service: August 26, 2023
Chief Complaint: Pulmonary Follow Up (Bilateral pneumonia/acute on chronic hypoxemic/hypercapnic respiratory failure.)
Subjective:
No overnight events
Denies any acute complaints.
Objective Data
Data Reviewed
Vital Signs / I&O / Oxygen:
Vital Signs
Temp Pulse Resp BP Pulse Ox
98.3 F 79 18 127/49 98
08/26/23 15:05 08/26/23 15:05 08/26/23 15:05 08/26/23 15:05 08/26/23 15:05
Intake and Output
08/25/23 08/26/23 08/27/23
06:59 06:59 06:59
Intake Total 350 / 350 480 / 480
Balance 350 / 350 480 / 480
SaO2 98
Nasal Cannula flow liters per 4
minute
Physical Exam
General: Comfortable, Other (Morbidly obese) and Other (Right anterior chest HD catheter)
HEENT: Normocephalic
Cardiovascular: S1-S2, Regular Rhythm, Murmur (n), Rub (n) and Peripheral Edema (+1 lower extremity edema)
Respiratory: Wheeze (n), Crackles (Negative), Rhonchi (Scattered, worse with cough), Non-Labored Respirations and Stridor (n)
GI: Soft, Distended (obese), Non Tender and Normal Bowel Sounds
Neurology: Lethargic (sleeping with BiPAP in place)
Skin: Cyanosis (n), Jaundice (n) and Rash (n)
Labs/Micro/Reports
Lab Data
08/25/23 12:03
08/25/23 10:04
[2023-08-26 21:32] LABS: Glucose - Point of Care 209 mg/dl (70-99)
[2023-08-26] MEDS: LIPITOR 40 MG PO (22:37)
[2023-08-27] VITALS (9 sets, daily range): BP systolic 116–140; BP diastolic 49–65; PULSE 2; BMI 34.0
[2023-08-27 06:50] LABS: Hematocrit 25.7 % (37.0-47.0); Hemoglobin 7.9 g/dL (12.0-16.0); Mean Corp Hgb Conc. 30.7 g/dL (33.0-37.0); Mean Corpuscular Hgb 28.7 pg (27.0-31.0); Mean Corpuscular Volume 93.5 fL (81.0-99.0); Mean Platelet Volume 11.6 fL (7.4-10.4); Platelet Count 230 10^3/uL (130-400); Red Blood Cell Count 2.75 10^6/uL (4.20-5.40); Red Cell Dist. Width 17.1 % (11.5-14.5); White Blood Cell Count 13.3 10^3/uL (4.8-10.8)
[2023-08-27 07:00] LABS: Blood Urea Nitrogen 41 mg/dl (7-17); Calcium 9.1 mg/dl (8.4-10.2); Carbon Dioxide 27 mmol/L (22-30); Chloride 97 mmol/L (98-107); Estimated Creatinine Clearance 21 ml/min; Glucose 110 mg/dl (70-99); Potassium 3.5 mmol/L (3.5-5.1); Sodium 133 mmol/L (135-145); eGFR 17.51
[2023-08-27 08:44] LABS: Glucose - Point of Care 121 mg/dl (70-99)
[2023-08-27] MEDS: NOVOLOG FLEXPEN-MODERATE RESISTANCE SC (09:47)
[2023-08-27] MEDS: VITAMIN C 250 MG PO (09:50)
[2023-08-27] MEDS: FEOSOL 325 MG PO (09:50)
[2023-08-27] MEDS: HEPARIN 5000 UNITS SC ×2 (09:51→20:09)
[2023-08-27] MEDS: PROTONIX 40 MG PO (09:51)
[2023-08-27] MEDS: DELTASONE 30 MG PO (09:51)
[2023-08-27] MEDS: VITAMIN D3 (cholecalciferol) 50 MCG PO (09:51)
[2023-08-27] MEDS: LOPRESSOR 50 MG PO ×2 (09:51→20:08)
[2023-08-27] MEDS: ZOLOFT 50 MG PO (09:51)
[2023-08-27] MEDS: TYLENOL 650 MG PO ×2 (09:54→20:08)
--- NOTE | 2023-08-27 10:41 | W.PN.NEPH.PH ---
Today's Communication / Plan
-
Dialysis tomorrow if patient still in hospital
Assessment/Plan
-
Impression:
Bilateral PNA
Acute kidney injury
CKD stage IV (3.0) on 06/16
Diabetes
Chronic Right foot wound (wound culture notes GNB/ group c strep)
Hypertension
Acidemia :acute on chronic chronic hypoxic respiratory failure/metabolic acidosis
Atrial fibrillation
History of hemorrhagic CVA
History of left leg DVT
Morbid obesity
Obstructive sleep apnea on CPAP
Hypercapnic respiratory
Anemia
Plan:
Hd TTS while in hospital
wt is down and on 4-5lit of O2 now, BIPAP at HS
will cont midodrine with HD to allow UF
HR have stabilized with increased BB 50mg BID on 08/23
improving h/h, s/p PRBC on 08/23
BP now increasing trend, if persists likely resume Amlodipine
pending HD unit placement
-
-
Date of Service: August 27, 2023
CC / HPI / ROS
-
Chief Complaint:
CONSTANCE
History of Present Illness:
CONSTANCE CKD 4 now on HD
Hgb down to 7.9 post PRBC on 08/23
BP increasing trend now, HR elevated
Review of Systems:
no CP
bedbound
Weights down
On 4-5lit O2
Labs
-
Labs:
WBC 13.3 10^3/uL (4.8-10.8) H 08/27/23 05:24
RBC 2.75 10^6/uL (4.20-5.40) L 08/27/23 05:24
Hgb 7.9 g/dL (12.0-16.0) L 08/27/23 05:24
Hct 25.7 % (37.0-47.0) L 08/27/23 05:24
Plt Count 230 10^3/uL (130-400) 08/27/23 05:24
Sodium 133 mmol/L (135-145) L 08/27/23 05:24
Potassium 3.5 mmol/L (3.5-5.1) 08/27/23 05:24
Chloride 97 mmol/L (98-107) L 08/27/23 05:24
Carbon Dioxide 27 mmol/L (22-30) 08/27/23 05:24
BUN 41 mg/dl (7-17) H 08/27/23 05:24
Creatinine 2.8 mg/dL (0.6-1.0) H 08/27/23 05:24
eGFR 17.51 08/27/23 05:24
Glucose 110 mg/dl (70-99) H 08/27/23 05:24
Calcium 9.1 mg/dl (8.4-10.2) 08/27/23 05:24
Nrl-Z-Jmlmsonghob Pept 01640 pg/ml 08/17/23 05:16
Albumin 3.4 g/dl (3.5-5.0) L 08/21/23 04:04
Physical Exam
-
Vital Signs:
Vital Signs
Temp Pulse Resp BP Pulse Ox
97.9 F 109 24 132/64 99
08/27/23 07:55 08/27/23 07:55 08/27/23 07:55 08/27/23 07:55 08/27/23 07:55
Cardiovascular:: Regular rate and rhythm
Respiratory:: Bilateral: Coarse
Lung Excursion:: Normal
Abdomen:: Nontender and Soft
Bowel Sounds:: Normal
Extremity Edema:: +1: Bilateral:
Red Catheter: No
--- NOTE | 2023-08-27 12:01 | W.PN.HOSP.TC ---
Today's Communication/Plan
-
steroid taper
HD schedule
BiPAP qhs and naps
DC planning
Assessment / Plan
Assessment / Plan
TTE
Mild concentric left ventricular hypertrophy. Normal regional wall motion. Left ventricular ejection fraction is 75% by Pham's method.
Normal diastolic function. Normal right ventricular size and function. Trace mitral regurgitation.
Aortic sclerosis without stenosis. Mild tricuspid regurgitation.
Estimated pulmonary artery pressure of 37 mmHg, assuming a right atrial pressure of 3 mmHg. Normal pericardium without effusion.
The IVC is of normal size and demonstrates normal respiratory variation.
NO prior available for comparison
CT right foot
Findings suggesting moderate cellulitis of the dorsal right foot. No focal fluid collection to suggest abscess . Limited exam without IV contrast.
LE arterial doppler
1. Noncompressible arteries bilaterally, suggestive of medial calcinosis and/or arterial noncompliance, which makes measured ankle-brachial indices unreliable. Toe brachial indices are considered more reliable in this situation.
2. Right toe brachial index 1.03 (normal greater than 0.7). No focal arterial stenosis demonstrated. Spectral Doppler waveforms are normal to the level of ankle.
3. Left toe brachial index 1.23. No focal arterial stenosis demonstrated. Spectral Doppler waveforms are normal to the level of ankle.

# Acute on chronic hypoxic and hypercapnic respiratory failure
# B/l Pneumonia
-Patient hypercapnic respiratory failure has been improved and on BiPAP at night.
-Patient has been started on hemodialysis to volume optimize
-CT chest 08/11 images reviewed and patient have bilateral infiltrates. Maintained on Zosyn. Vancomycin has been discontinued. - completed abx course with completion of doxycyline
-IV steroids switch to PO pred - decrease by 10 mg every 72 hours to off.
-O2 requirement coming down and on 4L through [place], - has chronically been on 4L
-bronchoscopy was discussed but on hold now.
-BiPAP qhs and naps
#CONSTANCE on Presumed CKD stage IIIb
-Patient was taken off of Lasix 3 weeks before this hospitalization due to worsening renal function.
-Patient having significant hypoxia and was concerning for pulmonary edema, patient failed trial of IV Lasix therapy.
-Nephrology discussed with patient and has been started on hemodialysis.
-Cont HD schedule
-Midodrine as needed for HD
#Hypernatremia
-Monitor with HD
#Visual hallucination
-most likely delirium
-reported at night time
-discontinued Dilaudid, has not gotten dose in 72hrs.
-steroid also possibly playing role
-Cant tolerate seroquel 12.5mg, discontinued. no more hallucination.
#Acute on chronic anemia
� Does not appear to be actively bleeding
� total 3 u PRBC this admit
� Iron saturation within normal limits, ferritin elevated
- suspecting anemia from renal disease, getting EPO inj
- f/u hbg and replace as needed
#Right foot chronic decubitus wound
-Ongoing for 2.5 yrs. Patient gets wound care at home by VN. Have been seen by podiatry in the past as well
-Infected foul-smelling purulent drainage on exam in ER
-Superficial Wound culture growing gram neg bacilli, group c streptococcus
-Lower extremity ANABELLA report as above
-CT left foot/xr did not show osteo. no abscess.
-Podiatry evaluated. continue local wound care.
-wound looks dry with healthy granulation tissue. Patient finished course for wound infection.
#history of A-fib
h/o of LLE DVT
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
-can not get CT Chest PE with renal function and V/q due to pulm edema
-dvt study negative this admit
-Patient back in sinus rhythm after increased dose of metoprolol. Continue monitoring on telemetry
-BB to 50mg BID on 08/23
#Essential hypertension
-on lopressor for simultaneous HR control. norvasc/valsartan on hold
-Resume Amlodipine if HTN persists
#FREDY
-cont bipap at night time and naps
-Trelegy at home
# h/o Type II DM
-Record diabetic with hemoglobin A1c of 5.1. Not on any meds at home
-start on mod ISS as BG uncontrolled with steroids need.
morbid obesity
bedbound
depression
GERD
DVT PPX - heparin subq
DNR/DNI
Transfer tele.
CM working on arranging HD chair time.
Anticipated Discharge: Within 24 hours
Subjective/Interval History
-
Date of Service: August 27, 2023
Awaiting discharge planning, clearance
No acute events overnight
Objective Data
-
Labs:
Laboratory Results
08/27/23
05:24
WBC 13.3 H
Hgb 7.9 L
Hct 25.7 L
Plt Count 230
Sodium 133 L
Potassium 3.5
Chloride 97 L
Carbon Dioxide 27
BUN 41 H
Creatinine 2.8 H
Glucose 110 H
Calcium 9.1
Vital Signs:
Vital Signs
Temp Pulse Resp BP Pulse Ox
98.6 F 71 20 140/58 99
08/27/23 11:37 08/27/23 11:37 08/27/23 11:37 08/27/23 11:37 08/27/23 11:37
I&O
08/26/23 08/27/23 08/28/23
06:59 06:59 06:59
Intake Total 720 / 720
Balance 720 / 720
Review of Systems
-
Respiratory: Reports No Symptoms
Cardiac: Reports No Symptoms
Abdomen/GI: Reports No Symptoms
Physical Exam
-
General: No Apparent Distress, Comfortable and Morbidly Obese
HEENT: Oxygen (on 4L )
Respiratory: Rhonchi
Cardiac: Regular Rhythm, S1/S2 and Tachycardic; Negative Murmur or Rub
GI: Soft, Nontender and Nondistended
Musculoskeletal: No Edema
Skin: Other (Right dorsal foot wound with dressing)
Neuro: Awake, Alert and No Motor Deficits
Psych: Calm
Data Reviewed
-
Diagnostic Radiology: Image personally visualized and interpreted and Report Reviewed by me
Labs: Labs Reviewed by me
[2023-08-27 12:20] LABS: Glucose - Point of Care 157 mg/dl (70-99)
[2023-08-27] MEDS: NOVOLOG FLEXPEN-MODERATE RESISTANCE 1 UNITS SC ×2 (14:07→17:35)
--- NOTE | 2023-08-27 16:06 | CM ---
Addendum entered by Ignacio Wright 08/27/23 16:15:
Correction: Ambulance company below is [facility].
Addendum entered by Ignacio Wright 08/27/23 16:12:
[facility] and palliative care upon discharge.
Original Note:
Spoke with Ladi at [facility]. They have all information except H/P. H/P forwarded. They have offered an 8:30am chair . Patient and accept. Perry will call with confirmation of chair time upon receipt of H/P and final
review of all records. Patient will need ambualnce transport auth through [employer]. prefers [facility] as they will cover 100% of transport through their insurance and assist patient. Patient and aware of above.
[2023-08-27 17:16] LABS: Glucose - Point of Care 186 mg/dl (70-99)
[2023-08-27] MEDS: LIPITOR 40 MG PO (21:20)
[2023-08-27 21:39] LABS: Glucose - Point of Care 206 mg/dl (70-99)
--- NOTE | 2023-08-27 23:40 | PTCARENOTE ---
Patient had short run of Afib with RVR. Converted back to NSR. HR 63. Patient is resting comfortably in bed, call green within reach.
[2023-08-28 03:05] VITALS: BP 143/60
[2023-08-28 06:00] VITALS: BMI 34.4
[2023-08-28 07:06] LABS: Hematocrit 23.9 % (37.0-47.0); Hemoglobin 7.5 g/dL (12.0-16.0); Mean Corp Hgb Conc. 31.4 g/dL (33.0-37.0); Mean Corpuscular Volume 92.3 fL (81.0-99.0); Mean Platelet Volume 11.4 fL (7.4-10.4); Platelet Count 226 10^3/uL (130-400); Red Blood Cell Count 2.59 10^6/uL (4.20-5.40); Red Cell Dist. Width 16.9 % (11.5-14.5); White Blood Cell Count 10.1 10^3/uL (4.8-10.8)
[2023-08-28 07:10] VITALS: BP 137/64
[2023-08-28 07:23] LABS: Blood Urea Nitrogen 55 mg/dl (7-17); Calcium 8.8 mg/dl (8.4-10.2); Carbon Dioxide 25 mmol/L (22-30); Chloride 98 mmol/L (98-107); Estimated Creatinine Clearance 17 ml/min; Glucose 112 mg/dl (70-99); Potassium 3.8 mmol/L (3.5-5.1); Sodium 132 mmol/L (135-145)
[2023-08-28 08:06] LABS: Glucose - Point of Care 109 mg/dl (70-99)
[2023-08-28] MEDS: RETACRIT 10000 UNITS IV (08:44)
[2023-08-28] MEDS: NOVOLOG FLEXPEN-MODERATE RESISTANCE SC ×2 (08:59→11:52)
--- NOTE | 2023-08-28 09:16 | W.PN.NEPH.HD ---
Assessment
-
Patient seen on dialysis
No complaints
Systolic blood pressure 115 at current UF
Will be discharged on a Sunday schedule once arrangements are completed
Progress Note - Hemodialysis
-
Date of Service: August 28, 2023
Duration: 30 minutes and 3 hours
Potassium Bath: 3
Calcium Bath: 2.5
Opti-Dialyzer: 160
Ultrafiltration: Other (2 kg)
Blood Flow: 400
Dialysate Flow: 600
Heparin: None
EPO: 10,000
[2023-08-28] MEDS: HEPARIN 4300 UNITS INTRACATH (11:04)
[2023-08-28 11:20] VITALS: BP 123/58
--- NOTE | 2023-08-28 11:28 | W.PN.HOSP.TC ---
Today's Communication/Plan
-
pred taper
pulm, podiatry, pcp, HD outpatient
Trelegy at night
Assessment / Plan
Assessment / Plan
TTE
Mild concentric left ventricular hypertrophy. Normal regional wall motion. Left ventricular ejection fraction is 75% by Pham's method.
Normal diastolic function. Normal right ventricular size and function. Trace mitral regurgitation.
Aortic sclerosis without stenosis. Mild tricuspid regurgitation.
Estimated pulmonary artery pressure of 37 mmHg, assuming a right atrial pressure of 3 mmHg. Normal pericardium without effusion.
The IVC is of normal size and demonstrates normal respiratory variation.
NO prior available for comparison
CT right foot
Findings suggesting moderate cellulitis of the dorsal right foot. No focal fluid collection to suggest abscess . Limited exam without IV contrast.
LE arterial doppler
1. Noncompressible arteries bilaterally, suggestive of medial calcinosis and/or arterial noncompliance, which makes measured ankle-brachial indices unreliable. Toe brachial indices are considered more reliable in this situation.
2. Right toe brachial index 1.03 (normal greater than 0.7). No focal arterial stenosis demonstrated. Spectral Doppler waveforms are normal to the level of ankle.
3. Left toe brachial index 1.23. No focal arterial stenosis demonstrated. Spectral Doppler waveforms are normal to the level of ankle.

# Acute on chronic hypoxic and hypercapnic respiratory failure
# B/l Pneumonia
-Patient hypercapnic respiratory failure has been improved and on BiPAP at night.
-Patient has been started on hemodialysis to volume optimize
-CT chest 08/11 images reviewed and patient have bilateral infiltrates. Maintained on Zosyn. Vancomycin has been discontinued. - completed abx course with completion of doxycyline
-IV steroids switch to PO pred - decrease by 10 mg every 72 hours to off.
-O2 requirement coming down and on 4L through [place], - has chronically been on 4L
-bronchoscopy was discussed but on hold now.
-BiPAP qhs and naps
� Follow-up pulmonary outpatient
-f/u chest imaging outpatient
#CONSTANCE on Presumed CKD stage IIIb
-Patient was taken off of Lasix 3 weeks before this hospitalization due to worsening renal function.
-Patient having significant hypoxia and was concerning for pulmonary edema, patient failed trial of IV Lasix therapy.
-Nephrology discussed with patient and has been started on hemodialysis.
-Cont HD schedule
-Midodrine as needed for HD
#Hypernatremia
-Monitor with HD
#Visual hallucination
-most likely delirium
-reported at night time
-discontinued Dilaudid, has not gotten dose in 72hrs.
-steroid also possibly playing role
-Cant tolerate seroquel 12.5mg, discontinued. no more hallucination.
#Acute on chronic anemia
� Does not appear to be actively bleeding
� total 3 u PRBC this admit
� Iron saturation within normal limits, ferritin elevated
- suspecting anemia from renal disease, cont MARIA T with HD
-- f/u hbg and replace as needed
-F/u CBC outpatient
#Right foot chronic decubitus wound
-Ongoing for 2.5 yrs. Patient gets wound care at home by VN. Have been seen by podiatry in the past as well
-Infected foul-smelling purulent drainage on exam in ER
-Superficial Wound culture growing gram neg bacilli, group c streptococcus
-Lower extremity ANABELLA report as above
-CT left foot/xr did not show osteo. no abscess.
-Podiatry evaluated. continue local wound care.
-wound looks dry with healthy granulation tissue. Patient finished course for wound infection.
-f/u podiatry outpatient
#history of A-fib
h/o of LLE DVT
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
-can not get CT Chest PE with renal function and V/q due to pulm edema
-dvt study negative this admit
-Patient back in sinus rhythm after increased dose of metoprolol. Continue monitoring on telemetry
-BB to 50mg BID on 08/23
#Essential hypertension
-on lopressor for simultaneous HR control. norvasc/valsartan on hold
-Resume Amlodipine if HTN persists
#FREDY
-cont bipap at night time and naps
-Trelegy at home
# h/o Type II DM
-Record diabetic with hemoglobin A1c of 5.1. Not on any meds at home
-start on mod ISS as BG uncontrolled with steroids need.
morbid obesity
bedbound
depression
GERD
DVT PPX - heparin subq
DNR/DNI
More than 30 minutes spent in discharge including
Final examination of the patient
Summarizing hospital stay
Instructions for continuing care to all relevant caregivers
Preparation of discharge records, prescriptions, and referral forms
Total time spent (35 in minutes):
Anticipated Discharge: Today
Subjective/Interval History
-
Date of Service: August 28, 2023
Tolerating dialysis
Objective Data
-
Labs:
Laboratory Results
08/28/23
06:00
WBC 10.1
Hgb 7.5 L
Hct 23.9 L
Plt Count 226
Sodium 132 L
Potassium 3.8
Chloride 98
Carbon Dioxide 25
BUN 55 H
Creatinine 3.5 H
Glucose 112 H
Calcium 8.8
Vital Signs:
Vital Signs
Temp Pulse Resp BP Pulse Ox
98.5 F 75 18 137/64 99
08/28/23 07:10 08/28/23 07:10 08/28/23 07:10 08/28/23 07:10 08/28/23 08:00
I&O
08/27/23 08/28/23 08/29/23
06:59 06:59 06:59
Intake Total 720 / 720 720 / 720
Balance 720 / 720 720 / 720
Review of Systems
-
Respiratory: Reports No Symptoms
Cardiac: Reports No Symptoms
Abdomen/GI: Reports No Symptoms
Physical Exam
-
General: No Apparent Distress, Comfortable and Morbidly Obese
HEENT: Oxygen (on 4L )
Respiratory: Rhonchi
Cardiac: Regular Rhythm, S1/S2 and Tachycardic; Negative Murmur or Rub
GI: Soft, Nontender and Nondistended
Musculoskeletal: No Edema
Skin: Other (Right dorsal foot wound with dressing)
Neuro: Awake, Alert and No Motor Deficits
Psych: Calm
Data Reviewed
-
Diagnostic Radiology: Image personally visualized and interpreted and Report Reviewed by me
Labs: Labs Reviewed by me
--- NOTE | 2023-08-28 11:36 | W.DS.TRANS ---
DC Summary - Station Agent
-
Discharge Instructions:
Discharge Diagnosis/Procedures # Acute on chronic hypoxic and hypercapnic
respiratory failure
# B/l Pneumonia
Diet Low Cholesterol,Low Fat,Diabetic, Carb
Controlled
Activity As tolerated
Blood Work bmp and cbc in 3-5 days
Others Tests repeat lung imaging in 4-6 weeks
Instructions: *PCP/Other [facility] [facility] Heart Failure Instructions
Stand-Alone Forms:
Changes to Home Medications: Yes
Discharge Medications:
DC Medications w/original date entered in [employer]
ascorbic acid (vitamin C) 250 mg tablet (Vitamin C) 250 mg PO DAILY Supplement 08/08/23
atorvastatin 40 mg tablet 40 mg PO HS High Cholesterol 08/08/23
cholecalciferol (vitamin D3) 50 mcg (2,000 unit) tablet 50 mcg PO DAILY Supplement 08/08/23
ferrous sulfate 325 mg (65 mg iron) tablet (iron) 325 mg PO DAILY Supplement 08/08/23
nystatin 100,000 unit/gram topical powder 1 applic topical [id number] PRN b/l legs 08/08/23
pantoprazole 40 mg tablet,delayed release 40 mg PO DAILY Gastrointestinal Issue 08/08/23
sertraline 50 mg tablet 50 mg PO DAILY Depression 08/08/23
acetaminophen 325 mg tablet 650 mg (2 x 325 mg) PO Q6HPRN PRN mild pain/ fever>100.5F #90 tabs 08/28/23
metoprolol tartrate 25 mg tablet 50 mg (2 x 25 mg) PO BID 30 days #120 tabs 08/28/23
midodrine 5 mg tablet 5 mg PO Q4HPRN PRN sbp<90 #30 tabs 08/28/23
prednisone 10 mg tablet See Rx Instructions .Route .COMPLEX #30 tabs 08/28/23
Home Medication Changes
metoprolol tartrate 25 mg tablet 50 mg (2 x 25 mg) PO BID 30 days #120 tabs 08/28/23
midodrine 5 mg tablet 5 mg PO Q4HPRN PRN sbp<90 #30 tabs 08/28/23
prednisone 10 mg tablet See Rx Instructions .Route .COMPLEX #30 tabs 08/28/23
Pending Results: No
[2023-08-28 11:49] LABS: Glucose - Point of Care 96 mg/dl (70-99)
[2023-08-28] MEDS: ZOLOFT 50 MG PO (11:50)
[2023-08-28] MEDS: HEPARIN SC (11:51)
[2023-08-28] MEDS: FEOSOL 325 MG PO (11:51)
[2023-08-28] MEDS: DELTASONE 30 MG PO (11:51)
[2023-08-28] MEDS: PROTONIX 40 MG PO (11:51)
[2023-08-28] MEDS: VITAMIN D3 (cholecalciferol) 50 MCG PO (11:51)
[2023-08-28] MEDS: VITAMIN C 250 MG PO (11:52)
[2023-08-28] MEDS: LOPRESSOR 50 MG PO (11:57)
[2023-08-28 15:05] VITALS: BP 133/55
--- NOTE | 2023-08-28 15:41 | CM ---
Patient has been medically cleared for discharge to home with [facility] services. Patient has been set up with [facility] dialysis center on [address] in [place], [place]. Patient has a 9:00am schedule. Her first dialysis session is on
, 08/30/23. She will be in a bed, not chair. Transport authorization has been approved through [facility] for [facility] ([place], [place]) transport services for 15 round trips, Auth reference # [id number]. Transport to home is scheduled for 7:00PM on this date.
[facility] FAX # [phone]
[facility] PHONE # [phone]
[2023-08-28 16:49] LABS: Glucose - Point of Care 193 mg/dl (70-99)
[2023-08-28] MEDS: NOVOLOG FLEXPEN-MODERATE RESISTANCE 1 UNITS SC (16:52)
== END 2023-08-28 19:20 | disposition home health service (06) | DRG 193 ==
LOC: 2 NORTH 15:57
PROVIDERS: Internal Medicine; Internal Medicine Critical Care Medicine; Nurse Practitioner Family; Radiology Vascular & Interventional Radiology; Specialist; ADMITTING PHYSICIAN Hospitalist; ATTENDING PHYSICIAN Internal Medicine; CONSULT PHYSICIAN Specialist; EMERGENCY PHYSICIAN Emergency Medicine; FAMILY PHYSICIAN Family Medicine; OTHER PHYSICIAN Internal Medicine Pulmonary Disease
PROC: 30233N1 Transfusion of Nonautologous Red Blood Cells into Peripheral Vein, Percutaneous Approach (ICD-10-PCS; 2023-08-14)
PROC: 02H633Z Insertion of Infusion Device into Right Atrium, Percutaneous Approach (ICD-10-PCS; 2023-08-19)
PROC: 0JH63XZ Insertion of Tunneled Vascular Access Device into Chest Subcutaneous Tissue and Fascia, Percutaneous Approach (ICD-10-PCS; 2023-08-19)
PROC: 5A09357 Assistance with Respiratory Ventilation, Less than 24 Consecutive Hours, Continuous Positive Airway Pressure (ICD-10-PCS; 2023-08-19)
PROC: 5A1D70Z Performance of Urinary Filtration, Intermittent, Less than 6 Hours Per Day (ICD-10-PCS; 2023-08-19)
DX: J18.9 Pneumonia, unspecified organism (principal); I50.33 Acute on chronic diastolic (congestive) heart failure; J96.21 Acute and chronic respiratory failure with hypoxia; J96.22 Acute and chronic respiratory failure with hypercapnia; E66.2 Morbid (severe) obesity with alveolar hypoventilation; N17.9 Acute kidney failure, unspecified; E87.29 Other acidosis; I13.0 Hypertensive heart and chronic kidney disease with heart failure and stage 1 through stage 4 chronic kidney disease, or unspecified chronic kidney disease; J44.1 Chronic obstructive pulmonary disease with (acute) exacerbation; J44.0 Chronic obstructive pulmonary disease with (acute) lower respiratory infection; E87.0 Hyperosmolality and hypernatremia; F05 Delirium due to known physiological condition; I48.91 Unspecified atrial fibrillation; Z66 Do not resuscitate; F32.A Depression, unspecified; N18.31 Chronic kidney disease, stage 3a; E11.22 Type 2 diabetes mellitus with diabetic chronic kidney disease; K21.9 Gastro-esophageal reflux disease without esophagitis; D63.1 Anemia in chronic kidney disease; L89.899 Pressure ulcer of other site, unspecified stage; Z11.52 Encounter for screening for COVID-19; Z68.34 Body mass index [BMI] 34.0-34.9, adult; Z74.01 Bed confinement status; Z79.899 Other long term (current) drug therapy; Z86.711 Personal history of pulmonary embolism; Z86.718 Personal history of other venous thrombosis and embolism; Z86.73 Personal history of transient ischemic attack (TIA), and cerebral infarction without residual deficits; Z99.81 Dependence on supplemental oxygen
CPT/HCPCS: 36558; 36600; 71045; 71250; 73630; 73700; 76770; 76937; 77001; 80048; 80053; 80202; 82607; 82728; 82746; 82805; 82962; 83036; 83540; 83550; 83735; 83880; 84443; 84484; 85025; 85027; 85379; 85610; 85730; 86160; 86704; 86706; 86803; 86850; 86900; 86901; 86920; 87040; 87070; 87077; 87147; 87205; 87340; 87449; 87502; 87641; 87811; 87899; 93005; 93306; 93922; 93925; 93970; 94660; 94760; 96374; 96375; 99285; C1750; G0257; P9016; P9047; Q5106

== ENCOUNTER 2025-03-12 15:01 | Emergency (ER) | payer OTHER, SELFPAY ==
[2025-03-12 15:05] VITALS: BMI 32.0
[2025-03-12 15:10] VITALS: BP 178/79
[2025-03-12 15:29] LABS: Hematocrit 36.0 % (37.0-47.0); Hemoglobin 10.8 g/dL (12.0-16.0); Mean Corp Hgb Conc. 30.0 g/dL (33.0-37.0); Mean Corpuscular Volume 90.2 fL (81.0-99.0); Nucleated Red Blood Cells % 0 %; Platelet Count 142 10^3/uL (130-400); Red Cell Dist. Width 16.0 % (11.5-14.5)
[2025-03-12 15:43] LABS: ALT (SGPT) 12 U/L (0-35); AST (SGOT) 19 U/L (14-36); Albumin 3.8 g/dl (3.5-5.0); Alkaline Phosphatase 80 U/L (38-126); Blood Urea Nitrogen 19 mg/dl (7-17); Calcium 9.5 mg/dl (8.4-10.2); Carbon Dioxide 31 mmol/L (22-30); Chloride 95 mmol/L (98-107); Estimated Creatinine Clearance 25 ml/min; Glucose 86 mg/dl (70-99); Potassium 4.0 mmol/L (3.5-5.1); Sodium 131 mmol/L (135-145); Total Protein 6.3 g/dl (6.3-8.2); eGFR 21.90
[2025-03-12] MEDS: NSS 500 IV (15:57)
[2025-03-12 16:00] VITALS: BP 174/93
--- NOTE | 2025-03-12 16:00 | ED.GENMED ---
History of Present Illness
General
Chief Complaint: Weakness
Time Seen by Provider: 03/12/25 15:10
History of Present Illness
History of Present Illness:
75-year-old female with history of end-stage renal disease on hemodialysis MWF, hypertension, bedbound status after history of necrotizing fasciitis presenting to the emergency department for generalized weakness and fatigue. Patient reports for
the past 2 days she has been sleeping a lot. She had dialysis yesterday, notes that she slept through dialysis which is atypical for her. Today, she was told that her speech being stable for gargled and her mouth has been feeling very dry.
at bedside notes for the past month she has had very poor p.o. intake. Patient denies chest pain or difficulty breathing. Denies cough. Denies focal weakness. Denies abdominal pain or vomiting. Denies any recent or known sick contacts.
She does still make urine, however is incontinent. Denies additional acute medical complaints
Phy Exam
Physical Exam
Physical Exam:
General: Well-appearing, dry mucous membranes
HEENT: protecting airway, pupils equal and reactive
Neck: appears supple
CV: Normal heart rate, regular rhythm
Resp: No accessory muscle use, no increased work of breathing, lungs clear to auscultation bilaterally
Abd: No distention
Extremities: No deformities, no swelling
Neuro: alert, no focal neurologic deficit. Chronic 4/5 weakness to bilateral lower extremities
: deferred
Rectal: deferred
Psych: Normal affect
Skin: Intact
Course
Orders/Labs/Results
Orders:
Orders
03/12/25 15:16
Complete Blood Count/With Diff Urgent
Comprehensive Metabolic Panel Urgent
03/12/25 15:51
CT Head W/o Iv Contrast Urgent
Comment:
Reason For Exam: weakness
Straight cath- Treatment ONCE
Urinalysis Reflex To Culture Urgent
CR Chest - 2 Views Urgent
Comment:
Reason For Exam: weakness/fatigue
03/12/25 15:52
0.9% Sodium Chloride 500 ml [Nss] 500 ml IV BOLUS
03/12/25 16:16
COVID-19 Antigen Urgent
Source: Nasal Swab
Influenza A+B Rapid Molecular Urgent
[facility] Source: Nasal Swab
Specimen Description:
Abnormal Lab Results
03/12/25
15:16
WBC 4.4 L 10^3/uL
(4.8-10.8)
RBC 3.99 L 10^6/uL
(4.20-5.40)
Hgb 10.8 L g/dL
(12.0-16.0)
Hct 36.0 L %
(37.0-47.0)
MCHC 30.0 L g/dL
(33.0-37.0)
RDW 16.0 H %
(11.5-14.5)
Absolute Lymphs (auto) 1.1 L 10^3/uL
(1.2-3.4)
Absolute Monos (auto) 0.7 H 10^3/uL
(0.1-0.6)
Monocytes % 16.7 H %
(1.7-9.3)
Sodium 131 L mmol/L
(135-145)
Chloride 95 L mmol/L
(98-107)
Carbon Dioxide 31 H mmol/L
(22-30)
BUN 19 H mg/dl
(7-17)
Creatinine 2.3 H mg/dL
(0.6-1.0)
03/12/25 15:16
03/12/25 15:16
Vital Signs
Initial and Last Documented VS:
Initial Vital Signs
Temp
98.4 F
03/12/25 15:05
Last Documented Vital Signs
Temp Pulse Resp BP Pulse Ox
98.4 F 67 16 143/115 95
03/12/25 15:05 03/12/25 18:00 03/12/25 18:03 03/12/25 18:00 03/12/25 18:03
MDM/Problems Addressed
MDM/Problems Addressed:
75-year-old female with history of end-stage renal disease on hemodialysis M WF, hypertension, CHF, bedbound status presenting to the emergency department for generalized weakness and fatigue. Vital signs on arrival significant for hypertension and
mild tachycardia.
On exam, patient denies acute complaints. Notes that she is overall feeling better. She does have dry mucous membranes, otherwise unremarkable cardiac and pulmonary exam. No tenderness to the abdomen. Chronic lower extremity weakness without any
acute findings. Suspect mild dehydration. at bedside notes that she has not been eating or drinking very much in the past month. She recently started an appetite stimulator medication. Will give a gentle fluid bolus and screen with
laboratory analysis to ensure no significant electrolyte derangements. Will also attempt to get urine sample to ensure no UTI. notes prior history of pneumonia without any profound respiratory symptoms. Will obtain chest x-ray imaging.
There was also report of some garbled speech prior to arrival. No present focal neurologic deficits. Will screen with CT brain.
18:20 - Patient CT is negative. Labs relatively unremarkable. Known renal dysfunction. Chest x-ray shows mild left lower lobe pneumonia. Patient notes history of pneumonia in the past without significant respiratory symptoms. Given
comorbidities, did offer admission given prior complicated hospital admission for bilateral pneumonia. Patient would prefer to go home with trial of oral antibiotics. Will start on antibiotics with plan for outpatient follow-up. However strict
return precautions were communicated and patient verbalized understanding
*Pulse Oximetry
SaO2: 94
Oxygen Mode of Delivery: Room air
Patient hypoxic: no
*Critical Care Note
Total Time (30-74mins, 75-104mins- exclusive of procedures): Not Applicable
ED Attending Note
-
Portions of this chart may have been created with voice recognition software.� Occasional wrong word or��sound alike� substitutions may have occurred due to the inherent limitations of voice recognition software.
Discharge Plan
Departure
Prescriptions:
No Action
atorvastatin 40 mg Tablet
40 mg PO HS
pantoprazole 40 mg Tablet,Delayed Release (Dr/Ec)
40 mg PO DAILY
ferrous sulfate [iron] 325 mg (65 mg iron) Tablet
325 mg PO DAILY
nystatin 100,000 unit/gram Powder
1 applic TOPICAL [id number] PRN (Reason: b/l legs )
sertraline 50 mg Tablet
50 mg PO DAILY
cholecalciferol (vitamin D3) 50 mcg (2,000 unit) Tablet
50 mcg PO DAILY
ascorbic acid (vitamin C) [Vitamin C] 250 mg Tablet
250 mg PO DAILY
acetaminophen 325 mg Tablet
650 mg PO Q6HPRN PRN (Reason: mild pain/ fever>100.5F) Qty: 90 0RF
midodrine 5 mg Tablet
5 mg PO Q4HPRN PRN (Reason: sbp<90) Qty: 30 0RF
Rx Instructions:
for HD
metoprolol tartrate 25 mg Tablet
50 mg PO BID 30 Days Qty: 120 0RF
prednisone 10 mg Tablet
See Rx Instructions .ROUTE .COMPLEX Qty: 30 0RF
Rx Instructions:
Take By Mouth:
20 mg daily x3 days, 10 mg daily x3 days,
then off
Referrals:
Reji Guardado MD [Family Provider, Family Practice]
Interventions
Interventions:
*Risk Screen - Suicide Last Done: 03/12/25 15:17
*General Assessment Last Done: 03/12/25 15:16
*Neglect/Abuse Screening Last Done: 03/12/25 15:16
*ED- Fall Risk Assessment Last Done: 03/12/25 15:16
*ED COVID-19 Vaccine History Last Done: 03/12/25 15:16
*ED Influenza Vaccine History Last Done: 03/12/25 15:16
ED- Cardiac Assessment Last Done: 03/12/25 15:18
ED- Neurological Assessment Last Done: 03/12/25 15:18
ED- Pulmonary Assessment Last Done: 03/12/25 15:18
Discharge Date and Time
Print Language: NEPALESE
[2025-03-12 16:45] LABS: COVID-19 Antigen Negative (Negative)
[2025-03-12 18:00] VITALS: BP 143/115
[2025-03-12] MEDS: VIBRAMYCIN 100 MG PO (18:39)
[2025-03-12] MEDS: AUGMENTIN 875 MG/125 MG 1 TABLET PO (18:39)
[2025-03-12 20:27] VITALS: BP 107/65
== END 2025-03-12 20:27 | disposition home or self-care (01) ==
LOC: EMR 15:01
PROVIDERS: EMERGENCY PHYSICIAN Student in an Organized Health Care Education/Training Program; FAMILY PHYSICIAN Family Medicine
DX: I13.2 Hypertensive heart and chronic kidney disease with heart failure and with stage 5 chronic kidney disease, or end stage renal disease (principal); N18.6 End stage renal disease; Z99.2 Dependence on renal dialysis; Z11.52 Encounter for screening for COVID-19; Z87.01 Personal history of pneumonia (recurrent)
CPT/HCPCS: 99284; 70450; 71046; 80053; 85025; 87502; 87811